=== PATIENT | male | born 1935 | race Caucasian/White ===

== ENCOUNTER 2017-06-15 01:58 | Inpatient (IN) | payer MEDICARE, OTHER ==
--- OUTSIDE RECORDS SUMMARY | 2017-06-15 02:00 | XMS | Clinical Summary ---
:1935 Author Organization [facility] Address [address] [place] [address] Phone Care Team Providers Name Role Phone , Primary Care Provider Unavailable Allergies Not on File Current Medications Not on file Active Problems Not on file Social History Tobacco Use Types Packs/Day Years Used Date Never Assessed Sex Assigned at Date Recorded Not on file Last Filed Vital Signs Not on file Plan of Treatment Not on file Results Not on filefrom Last 3 Months
[2017-06-15 03:06] LABS: Hematocrit 39.7 % (42.0-52.0); Red Blood Cell (RBC) Count 3.79 mill/uL (4.70-6.10); White Blood Cell (WBC) Count 10.3 thou/uL (4.8-10.8)
[2017-06-15 03:19] LABS: Lactic Acid - Sepsis 1.5 mmol/L (0.5-2.2)
[2017-06-15 03:25] LABS: ALT (SGPT) 14 U/L (8-55); AST (SGOT) 22 U/L (5-34); Alkaline Phosphatase 113 U/L (40-150); Anion Gap 14 mmol/L (10-20); BUN (Urea Nitrogen) 41 mg/dL (8.4-25.7); Bilirubin, Total 3.3 mg/dL (0.2-1.2); Calc. Creatinine Clearance 0 mL/min (70-130); Calcium 8.7 mg/dL (7.8-10.44); Carbon Dioxide 24 mmol/L (23-31); Chloride 103 mmol/L (98-107); Estimated GFR-MDRD 38; Globulin 3.3 g/dL (2.4-3.5); Mean Platelet Volume 8.5 fL (7.4-10.4); Protein, Total 6.4 g/dL (5.8-8.1)
[2017-06-15 03:26] LABS: #Lymphocytes 0.6 thou/uL (1.20-3.40); #Monocytes 0.6 thou/uL (0.11-0.59); %Basophils 0.1 % (0.0-1.0); %Eosinophils 0.2 % (0.0-10.0); %Monocytes 6.2 % (0.0-10.0); Anisocytosis SLIGHT = 6-15 cells (100X) (0-5/hpf); Macrocytosis SLIGHT = 6-15 cells (100X) (0-5/hpf); Ovalocytes SLIGHT = 2-5 cells (100X) (0-1/hpf)
[2017-06-15] MEDS ORDERED: Vancomycin HCl 1.5 GM in Sodium Chloride 0.9% 250 ML 300 ML IVPB SCH (04:15)
[2017-06-15 04:32] LABS: Bilirubin Negative (Negative); Blood, Urine Negative (Negative); Glucose, Urine (Dipstick) Negative (Negative); Ketone, Urine Negative (Negative); Nitrite Negative (Negative); Protein, Urine (Dipstick) Negative (Neg-Trace)
[2017-06-15 04:34] LABS: Bacteria/HPF None Seen HPF (None Seen); Hyaline Casts/LPF 7-10 HYALINE CAST LPF (0-3 Hyaline); Squamous Epithelial 0-3 HPF (0-3); WBC/HPF 21-50 HPF (0-3)
[2017-06-15] MEDS ORDERED: Ondansetron HCl/PF 4 MG/2 ML Vial IVP PRN ×2 (05:59→06:58)
[2017-06-15] MEDS ORDERED: Ondansetron ODT 4 MG TAB SL PRN (05:59)
[2017-06-15] MEDS ORDERED: Acetaminophen 325 MG TAB PO PRN ×2 (05:59→06:58)
[2017-06-15 06:16] VITALS: BMI 33.4
[2017-06-15] MEDS ORDERED: HYDROcodone/Acetaminophen 5/325 mg Tablet PO PRN (06:58)
[2017-06-15] MEDS ORDERED: Loperamide HCl 2 MG CAP PO PRN (06:58)
[2017-06-15] MEDS ORDERED: Diabetic Tussin 200 MG/10 ML UDCUP PO PRN (06:58)
[2017-06-15] MEDS ORDERED: Zolpidem Tartrate 5 MG TAB PO PRN (06:58)
[2017-06-15] MEDS ORDERED: Artificial Tears 18 DROP/0.9 ML EA EYE PRN (06:58)
[2017-06-15] MEDS ORDERED: Mag-Al 1200 mg/1200 mg/30 ML UDCUP PO PRN (06:58)
[2017-06-15] MEDS ORDERED: Loratadine 10 MG TAB PO PRN (06:58)
[2017-06-15] MEDS ORDERED: Eucerin (Mineral Oil/Petrolatum,White) 30 gm Jar TOP PRN (06:58)
[2017-06-15] MEDS ORDERED: Nitroglycerin 0.4 MG TAB (25 Tab Bottle) SL PRN (06:58)
[2017-06-15] MEDS ORDERED: Sodium Chloride 0.65% Nasal 44 ML BOT EA NARE PRN (06:58)
[2017-06-15] MEDS ORDERED: Ondansetron ODT 4 MG TAB PO PRN (06:58)
[2017-06-15] MEDS ORDERED: Senokot 8.6 MG TAB PO PRN (06:58)
[2017-06-15] MEDS ORDERED: Milk Of Magnesia 30 ML UDCUP PO PRN (06:58)
[2017-06-15] MEDS: Famotidine 20 MG TAB PO SCH ×2 (08:02→20:03)
[2017-06-15] MEDS: Ezetimibe 10 MG TAB PO SCH (08:02)
[2017-06-15] MEDS: Furosemide 40 MG TAB PO SCH ×2 (08:02→20:03)
[2017-06-15] MEDS: Ascorbic Acid 500 mg Chewable Tablet PO SCH (08:03)
[2017-06-15] MEDS: Dronedarone HCl 400 MG TAB PO SCH ×2 (08:03→20:04)
[2017-06-15] MEDS: Apixaban 5 MG TAB PO SCH ×2 (08:03→20:03)
--- NOTE | 2017-06-15 08:34 | ULT ---
PRELIMINARY REPORT/[facility]/EMERGENCY AFTER HOURS PROCEDURE: EXAM: US Duplex Left Lower Extremity Veins EXAM DATE/TIME: 06/15/2017 2:24 AM CLINICAL HISTORY: 81 years old, male; Pain; Other: Lle pain, redness, swelling TECHNIQUE: Real-time ultrasound scan of the veins of the left lower extremity with color Doppler flow, spectral waveform analysis and compression. COMPARISON: No relevant prior studies available. FINDINGS: Deep veins: Unremarkable. No DVT in the visualized common femoral, femoral, proximal deep femoral or popliteal veins. The veins demonstrate normal color flow, are normally compressible, with normal ph asic flow and/or augmentation response. Superficial veins: Unremarkable. No thrombus in the visualized great saphenous vein. Soft tissues: No acute findings. No popliteal cyst. IMPRESSION: No evidence of deep venous thrombosis in the left lower extremity on current study. Thank you for allowing us to participate in the care of your patient. Dictated and Authenticated by: Sara Reddy MD 06/15/2017 3:14 AM Central Time ([place] \T\ Jose David) FINAL REPORT EMERGENCY AFTER HOURS STUDY ULTRASOUND WITH DOPPLER DUPLEX VENOUS LOWER EXTREMITY LEFT: HISTORY: 81-year-old male with pain, erythema, and swelling of the left lower extremity. TECHNIQUE: Color flow Doppler, spectral waveform analysis of pulsed Doppler, and saha-scale imaging with compre ssion and augmentation, were used to evaluate the left common femoral, femoral, popliteal, posterior tibial, and superficial femoral, veins; and the proximal portions of the profunda femoral and great er saphenous, veins. FINDINGS: There is normal compressibility, demonstration of blood flow by color Doppler and pulsed Doppler, an d response to augmentation, in all interrogated veins. There is edema in the soft tissues throughout the left lower extremity. This report agrees with the preliminary report by Kang. IMPRESSION: 1. No deep vein thrombosis in the left lower extremity. 2. Soft tissue edema of the entire left lower extremity. marjan[] POS: NETTIE
--- NOTE | 2017-06-15 08:49 | RAD ---
RADIOGRAPH CHEST 1 VIEW: Date: 06/15/17 Time: 0210 HOURS HISTORY: 81-year-old male with cough. COMPARISON: 10/28/09. FINDINGS: Cardiac size is larger on the current study. New finding of opacification of the left base due to a combination of pleural effusion and left lower lobe air space density. Minimal blunting of the right lateral costophrenic angle. No angela pulmonary edema or pneumothorax. IMPRESSION: 1. Bilateral pleural effusions, left greater than right. 2. Left lower lobe air space density, probably atelectasis, although it would not be possible to ru le out pneumonia. 3. Cardiomegaly. NIDHI [] POS: NETTIE
[2017-06-15] MEDS ORDERED: Non-Formulary Item 1 EACH (Budesonide-Formoterol [Symbicort 160-4.5] 2 PUFF) INH SCH (09:00)
[2017-06-15] MEDS ORDERED: BIMATOPROST R EYE SCH (09:00)
[2017-06-15] MEDS ORDERED: Dronedarone HCl 400 MG TAB PO SCH (09:00)
[2017-06-15] MEDS ORDERED: Non-Formulary Item 1 EACH (Rosuvastatin Calcium [Crestor] 20 MG) PO SCH (09:00)
[2017-06-15] MEDS ORDERED: Non-Formulary Item 1 EACH (Ascorbic Acid [Vitamin C] 1,000 MG) PO SCH (09:00)
[2017-06-15] MEDS: Latanoprost 0.005% Ophth Soln 2.5 ml Bottle R EYE SCH (09:44)
[2017-06-15] MEDS: cefTRIAXone\\ROCEPHIN 2 GM in Sodium Chloride 0.9% 100 ML IVPB SCH (10:28)
--- NOTE | 2017-06-15 11:31 | HP ---
PRIMARY CARE PHYSICIAN: Dr. Riaz Ramsey. REASON FOR ADMISSION: Urinary tract infection, left leg cellulitis. HISTORY OF PRESENT ILLNESS: A 81-year-old male with a history of atrial fibrillation on chronic ant icoagulation therapy as well as history of bilateral lower extremity lymphedema who came to the [facility] room with complaint of increasing left lower extremity swelling and pain. Patient also notice d erythema over left lower extremity. Patient reports that he has bilateral lower extremity lymphed ramon, but left leg is more swollen, more red and more tender than before. He noticed this on Saturday when he had a change in his dressing for lymphedema. Patient did not put any attention to it, but i t was keeping getting worse and his pain was getting more worse. He was having pain with ambulation . He was not sure about fever. He was feeling subjectively warm. Patient decided to come to the e mergency room for evaluation. In the emergency room, patient was clinically appeared to be cellulitis with left lower extremity. He had ultrasound done which was negative for deep vein thrombosis. Routine blood test was showing neutrophilic leukocytosis. The patient's urinalysis was also consistent with urinary tract infectio n. Subsequently, this patient was admitted to medical floor. EMERGENCY ROOM COURSE: The patient was given vancomycin in the emergency room. REVIEW OF SYSTEMS: The following complete review of systems was negative, unless otherwise mentione d in the HPI or below: Constitutional: Weight loss or gain, ability to conduct usual activities. Skin: Rash, itching. Eyes: Double vision, pain. ENT/Mouth: Nose bleeding, neck stiffness, pain, tenderness. Cardiovascular: Palpitations, dyspnea on exertion, orthopnea. Respiratory: Shortness of breath, wheezing, cough, hemoptysis, fever or night sweats. Gastrointestinal: Poor appetite, abdominal pain, heartburn, nausea, vomiting, constipation, or diar juana. Genitourinary: Urgency, frequency, dysuria, nocturia. Musculoskeletal: Pain, swelling. Neurologic/Psychiatric: Anxiety, depression. Allergy/Immunologic: Skin rash, bleeding tendency. Please see my HPI for pertinent positives and negatives. All other review of system reviewed and ne gative except as mentioned in the HPI. PAST MEDICAL HISTORY: Atrial fibrillation, chronic anticoagulation with Eliquis, hypertension, dysl ipidemia, coronary artery disease, asthma/COPD, benign enlargement of prostate. PAST SURGICAL HISTORY: Left eye cornea repair, right eye surgery, appendicectomy, left shoulder rep lacement, right shoulder rotator cuff repair, tonsillectomy. PAST PSYCHIATRIC HISTORY: Reviewed and negative. SOCIAL HISTORY: Patient lives at home with his . He drinks wine with meal. 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 He quit smoking in 1999. FAMILY HISTORY: No strong family history of premature coronary artery disease, stroke or cancer. ALLERGIES: No known drug allergies. CURRENT HOME MEDICATIONS: Crestor 20 mg p.o. at bedtime, Toprol-XL 25 mg p.o. daily, Flomax 0.4 mg p.o. daily, Eliquis 5 mg p.o. b.i.d., Lasix 40 mg p.o. b.i.d., Multaq 400 mg twice daily, Zetia 10 m g p.o. daily, Symbicort 1 inhalation daily. PHYSICAL EXAMINATION: VITAL SIGNS: On arrival, blood pressure 97/51, pulse 94, respiratory rate 20, temperature 98.4, sat uration 90% on room air, and weight 107.5 kilograms. GENERAL: Patient is currently alert, awake, no obvious acute distress. HEAD: Normocephalic, atraumatic. EYES: Pupils round, reactive to light. Extraocular muscles intact. ENT: Oropharynx within normal limits. Moist mucous membranes. No oral lesions. No pharyngeal heather thema, no exudates. NECK: Supple. Range of motion is normal. No meningeal signs of irritation. LUNGS: Clear to auscultation without any rhonchi or rales. CARDIAC: S1, S2 irregular. No murmur, no gallop, no rub. ABDOMEN: Soft, obesity present. Bowel sounds present. Nontender, nondistended. No organomegaly, no mass, no suprapubic tenderness. GENITALIA: Within normal limits. BACK: Examination unremarkable. No CVA tenderness. EXTREMITIES: Upper extremity passive movements of all joints are normal. Lower extremity, left low er extremity is erythematous, swollen, tender consistent with cellulitis. Right lower extremity has lymphedema as well. NEUROLOGIC: Nonfocal examination. Patient is moving all four limbs, plantar bilateral flexors. PSYCHIATRIC: Normal affect. HEMATOLOGICAL SYSTEM: Lymphedema in both lower extremities, but no other palpable lymph nodes. IMAGING AND SIGNIFICANT LABORATORY DATA: 1. EKG based on my review, atrial fibrillation with low voltage QRS complex, nonspecific ST-T strong es. Ultrasound negative for deep vein thrombosis. 2. Chest x-ray based on my review, no acute cardiopulmonary process. 3. CBC: WBC 10.3, hemoglobin 12.8, MCV 105, platelets 107 with left shift. D-dimer 2.79. 4. BMP: Sodium 137, potassium 3.7, chloride 103, carbon dioxide 24, BUN 41, creatinine 1.76, gluco se 108, calcium 8.7, lactic acid 1.5. 5. LFT: AST 22, ALT 14, alkaline phosphatase 113, albumin 3.1. BNP 579.1. TSH 3.91. 6. Urinalysis: Leukocyte esterase large. ASSESSMENT AND PLAN/IMPRESSION: 1. Acute left lower extremity cellulitis. Based on clinical appearance, patient does have cellulit is with erythema, increased swelling, tenderness, warmth. He also has neutrophilic leukocytosis. T he patient has underlying risk factors for cellulitis with lymphedema. This patient will be treated with vancomycin and Rocephin and patient's both lower extremities will be kept elevated. We will c onsult Wound Care team for wound care management. We will monitor clinical response. Patient will need prophylactic long-term antibiotic therapy to prevent recurrent cellulitis. 2. Urinary tract infection. We will send urine culture. Patient is already on Rocephin and vancom ycin. We will follow up on culture result. 3. Atrial fibrillation with controlled ventricular response. We will continue Toprol-XL 25 mg p.o. daily along with chronic anticoagulation therapy with Eliquis 5 mg p.o. b.i.d. We will also contin ue Multaq 400 mg twice daily. 4. Dyslipidemia. We will continue Crestor 40 mg p.o. at bedtime along with Zetia 10 mg p.o. daily. 5. Benign enlargement of prostate. We will continue Flomax 0.4 mg p.o. at bedtime. 6. Chronic obstructive pulmonary disease/asthma. We will continue Dulera 2 puffs inhalation daily and DuoNeb therapy q.6 hourly p.r.n. 7. Coronary artery disease. We will continue aspirin 81 mg p.o. daily along with beta-tony and statin therapy. 8. Chronic anticoagulation. We will continue Eliquis 5 mg p.o. b.i.d. 9. Macrocytosis. We will start folic acid and vitamin B12 therapy while in hospital. 10. Chronic diastolic heart failure. Patient has elevated BNP. This patient did not have any echo cardiography in recent past, but we will defer that echocardiography to be done as an outpatient bas is. At this point, does not need any echocardiography. The patient is euvolemic and compensated. 11. Bilateral chronic lymphedema. Wound care team will be consulted for lymphedema treatment. 12. Obesity with body mass index 33. Dietary education given, weight loss education given. Health y lifestyle measures discussed with the patient. 13. Deep venous thrombosis prophylaxis. Patient is already on full dose of oral anticoagulation th yoel with Jasvir, no need of Lovenox. 14. Gastrointestinal prophylaxis, Pepcid 20 mg p.o. b.i.d. 15. CODE STATUS: The patient is FULL CODE. The patient's is surrogate decision maker. Disposition plan based on clinical course. We are expecting patient's stay in hospital more than 2 midnights. Plan of care discussed with the patient after admission.
[2017-06-15] MEDS: Mometasone/Formoterol 120 PUFF INHALER INH SCH (18:28)
[2017-06-15] MEDS: Tamsulosin HCl 0.4 MG CAP PO SCH (20:03)
[2017-06-15] MEDS ORDERED: Tamsulosin HCl 0.4 MG CAP PO SCH (21:00)
[2017-06-16] MEDS: Vancomycin HCl 1 GM in Premix Bag 1 BAG IVPB SCH (04:01)
[2017-06-16 05:26] LABS: #Lymphocytes 0.6 thou/uL (1.20-3.40); #Monocytes 0.7 thou/uL (0.11-0.59); #Neutrophils 8.7 thou/uL (1.40-6.50); %Eosinophils 0.3 % (0.0-10.0); %Lymphocytes 5.5 % (21.0-51.0); %Monocytes 6.7 % (0.0-10.0); Hematocrit 38.7 % (42.0-52.0); Mean Platelet Volume 8.9 fL (7.4-10.4); Red Blood Cell (RBC) Count 3.67 mill/uL (4.70-6.10)
[2017-06-16 05:40] LABS: ALT (SGPT) 12 U/L (8-55); AST (SGOT) 20 U/L (5-34); Alkaline Phosphatase 114 U/L (40-150); Anion Gap 13 mmol/L (10-20); BUN (Urea Nitrogen) 37 mg/dL (8.4-25.7); Bilirubin, Total 2.6 mg/dL (0.2-1.2); Calc. Creatinine Clearance 60 mL/min (70-130); Calcium 8.6 mg/dL (7.8-10.44); Carbon Dioxide 27 mmol/L (23-31); Chloride 103 mmol/L (98-107); Estimated GFR-MDRD 44; Globulin 3.5 g/dL (2.4-3.5); Protein, Total 6.4 g/dL (5.8-8.1)
[2017-06-16] MEDS: Mometasone/Formoterol 120 PUFF INHALER INH SCH ×2 (06:29→18:40)
[2017-06-16] MEDS: Ezetimibe 10 MG TAB PO SCH (07:49)
[2017-06-16] MEDS: Famotidine 20 MG TAB PO SCH ×2 (07:49→20:31)
[2017-06-16] MEDS: Dronedarone HCl 400 MG TAB PO SCH ×2 (07:49→20:31)
[2017-06-16] MEDS: Furosemide 40 MG TAB PO SCH ×2 (07:49→20:31)
[2017-06-16] MEDS: Folic Acid 1 MG TAB PO SCH (07:50)
[2017-06-16] MEDS: Apixaban 5 MG TAB PO SCH ×2 (07:50→20:31)
[2017-06-16] MEDS: Cyanocobalamin (Vitamin B-12) 1,000 MCG TAB PO SCH (07:50)
[2017-06-16] MEDS: Ascorbic Acid 500 mg Chewable Tablet PO SCH (07:50)
[2017-06-16] MEDS: Latanoprost 0.005% Ophth Soln 2.5 ml Bottle R EYE SCH (09:18)
[2017-06-16] MEDS: cefTRIAXone\\ROCEPHIN 2 GM in Sodium Chloride 0.9% 100 ML IVPB SCH (09:21)
--- NOTE | 2017-06-16 10:51 | PDOC.PN ---
- Subjective Encounter Start Date: 06/16/17 Encounter Start Time: 09:00 -: old records requested/rev pt feels better, less pain in left leg, but not normal - Objective Resuscitation Status: Resuscitation Status FULL:Full Resuscitation MAR Reviewed: Yes Vital Signs & Weight: Vital Signs (12 hours) Temp Pulse Resp BP Pulse Ox 06/16/17 08:00 97.7 F 92 20 95 06/16/17 07:49 97.7 F 92 20 109/72 94 L 06/16/17 06:35 94 L 06/16/17 06:29 88 20 94 L 06/16/17 04:00 97.9 F 85 20 103/67 94 L 06/16/17 00:37 94 L 06/16/17 00:00 98.9 F 96 18 113/68 93 L Weight Admit Weight 239 lb 9.6 oz Weight 239 lb 9.6 oz I&O: 06/15/17 06/16/17 06/17/17 06:59 06:59 06:59 Intake Total 920 360 Output Total 890 Balance 30 360 Result Diagrams: 06/16/17 03:59 06/16/17 03:59 Phys Exam - Physical Examination Constitutional: NAD HEENT: PERRLA, moist MMs, sclera anicteric Neck: no JVD, supple Respiratory: no wheezing, no rales, no rhonchi Cardiovascular: RRR, no significant murmur, no rub Gastrointestinal: soft, non-tender, no distention, positive bowel sounds bilateral lymphoedema, left leg cellulitis improving Neurological: non-focal, normal sensation, moves all 4 limbs Psychiatric: normal affect, A&O x 3 Skin: no rash, normal turgor Dx/Plan (1) Cellulitis of left leg Code(s): L03.116 - CELLULITIS OF LEFT LOWER LIMB Status: Acute (2) UTI (urinary tract infection) Status: Acute Qualifiers: Urinary tract infection type: acute cystitis Hematuria presence: without hematuria Qualified Code(s): N30.00 - Acute cystitis without hematuria (3) Sepsis Code(s): A41.9 - SEPSIS, UNSPECIFIED ORGANISM Status: Acute (4) Paroxysmal atrial fibrillation Code(s): I48.0 - PAROXYSMAL ATRIAL FIBRILLATION Status: Chronic (5) CKD (chronic kidney disease) stage 3, GFR 30-59 ml/min Code(s): N18.3 - CHRONIC KIDNEY DISEASE, STAGE 3 (MODERATE) Status: Chronic (6) CAD (coronary artery disease) Code(s): I25.10 - ATHSCL HEART DISEASE OF [place] CORONARY ARTERY W/O ANG PCTRS Status: Chronic (7) BPH (benign prostatic hyperplasia) Code(s): N40.0 - BENIGN PROSTATIC HYPERPLASIA WITHOUT LOWER URINRY TRACT SYMP Status: Chronic (8) Hypertension Code(s): I10 - ESSENTIAL (PRIMARY) HYPERTENSION Status: Chronic (9) Dyslipidemia Code(s): E78.5 - HYPERLIPIDEMIA, UNSPECIFIED Status: Chronic (10) Chronic diastolic heart failure Code(s): I50.32 - CHRONIC DIASTOLIC (CONGESTIVE) HEART FAILURE Status: Chronic (11) Obesity (BMI 30.0-34.9) Code(s): E66.9 - OBESITY, UNSPECIFIED Status: Chronic - Plan cont current plan of care, continue antibiotics * continue vanomycin and rocephin * follow culture result * medication reviewed as below * symptomatic treatment * keep leg elevated * wound care. Review of Systems - Review of Systems Constitutional: negative: Fever, Chills, Sweats, Weakness, Malaise, Other ENT: negative: Ear Pain, Ear Discharge, Nose Pain, Nose Discharge, Nose Congestion, Mouth Pain, Mouth Swelling, Throat Pain, Throat Swelling, Other Respiratory: negative: Cough, Dry, Shortness of Breath, Hemoptysis, SOB with Excertion, Pleuritic Pain, Sputum, Wheezing Cardiovascular: negative: Chest Pain, Palpitations, Orthopnea, Paroxysmal Noc. Dyspnea, Edema, Light Headedness, Other Gastrointestinal: negative: Nausea, Vomiting, Abdominal Pain, Diarrhea, Constipation, Melena, Hematochezia, Other Genitourinary: negative: Dysuria, Frequency, Incontinence, Hematuria, Retention , Other Musculoskeletal: Leg Pain. negative: Neck Pain, Shoulder Pain, Arm Pain, Back Pain, Hand Pain, Foot Pain, Other Skin: negative: Rash, Lesions, Dominick, Bruising, Other - Medications/Allergies Allergies/Adverse Reactions: Allergies Allergy/AdvReac Type Severity Reaction Status Date / Time No Known Allergies Allergy Verified 06/15/17 06:23 Medications: Current Medications Acetaminophen (Tylenol) 650 mg PO Q4H PRN PRN Reason: Headache/Fever or Pain Hydrocodone Bitart/Acetaminophen ([place] 5/325) 1 tab PO Q4H PRN PRN Reason: Moderate Pain (4-6) Al Hydroxide/Mg Hydroxide (Maalox) 30 ml PO Q6H PRN PRN Reason: Heartburn or Indigestion Albuterol/Ipratropium (Duoneb) 3 ml NEB F3LL-RS PRN PRN Reason: SOB &/or Wheezing Apixaban (Eliquis) 5 mg PO BID [facility] Last Admin: 06/16/17 07:50 Dose: 5 mg Artificial Tears (Tears Naturale) 0 drop EA EYE PRN PRN PRN Reason: Dry Eyes Ascorbic Acid (Vitamin C) 1,000 mg PO DAILY [facility] Last Admin: 06/16/17 07:50 Dose: 1,000 mg Cyanocobalamin (Vitamin B-12) 1,000 mcg PO DAILY [facility] Last Admin: 06/16/17 07:50 Dose: 1,000 mcg Dronedarone (Multaq) 400 mg PO BID [facility] Last Admin: 06/16/17 07:49 Dose: 400 mg Ezetimibe (Zetia) 10 mg PO DAILY [facility] Last Admin: 06/16/17 07:49 Dose: 10 mg Famotidine (Pepcid) 20 mg PO BID [facility] Last Admin: 06/16/17 07:49 Dose: 20 mg Folic Acid (Folvite) 1 mg PO DAILY [facility] Last Admin: 06/16/17 07:50 Dose: 1 mg Furosemide (Lasix) 40 mg PO BID [facility] Last Admin: 06/16/17 07:49 Dose: 40 mg Guaifenesin (Robitussin Sf) 200 mg PO Q4H PRN PRN Reason: Cough Hydralazine HCl (Apresoline) 10 mg SLOW IVP Q4H PRN PRN Reason: Systolic BP > 180 Ceftriaxone Sodium 2 gm/ (Sodium Chloride) 100 mls @ 200 mls/hr IVPB Q24HR [facility] Last Admin: 06/16/17 09:21 Dose: 100 mls Vancomycin HCl 1 gm/ Device 200 mls @ 200 mls/hr IVPB Q24HR [facility] Last Admin: 06/16/17 04:01 Dose: 200 mls Latanoprost (Xalatan 0.005% Ophth Soln) 1 drop R EYE QAM [facility] Last Admin: 06/16/17 09:18 Dose: Not Given Loperamide HCl (Imodium) 2 mg PO PRN PRN PRN Reason: Diarrhea/Loose Stools Loratadine (Claritin) 10 mg PO DAILYPRN PRN PRN Reason: Sinus Symptoms Magnesium Hydroxide (Milk Of Magnesium) 30 ml PO DAILYPRN PRN PRN Reason: Constipation Metoprolol Succinate (Toprol Xl) 25 mg PO QPM [facility] Last Admin: 06/15/17 20:04 Dose: 25 mg Mineral Oil/White Petrolatum (Eucerin Cream) 0 gm TOP BIDPRN PRN PRN Reason: Dry Skin Miscellaneous Medication (Pharmacy To Dose) 1 each IVPB ASDIR [facility] Mometasone Furoate/Formoterol Fumar (Dulera 200 Mcg/5 Mcg Inhaler) 2 puff INH BID-RT [facility] Last Admin: 06/16/17 06:29 Dose: 2 puff Nitroglycerin (Nitrostat) 0.4 mg SL Q5MIN PRN PRN Reason: Chest Pain Ondansetron HCl (Zofran Odt) 4 mg PO Q6H PRN PRN Reason: Nausea/Vomiting Ondansetron HCl (Zofran) 4 mg IVP Q6H PRN PRN Reason: Nausea/Vomiting Rosuvastatin Calcium (Crestor) 20 mg PO [facility] Last Admin: 06/15/17 20:03 Dose: 20 mg Senna (Senokot) 2 tab PO HSPRN PRN PRN Reason: Constipation Sodium Chloride ([place] Nasal [place] 0.65%) 0 ml EA NARE QIDPRN PRN PRN Reason: Nasal Congestion Sodium Chloride (Flush - Normal Saline) 10 ml IVF Q12HR [facility] Last Admin: 06/16/17 07:50 Dose: 10 ml Sodium Chloride (Flush - Normal Saline) 10 ml IVF PRN PRN PRN Reason: Saline Flush Tamsulosin HCl (Flomax) 0.4 mg PO [facility] Last Admin: 06/15/17 20:03 Dose: 0.4 mg Zolpidem Tartrate (Ambien) 5 mg PO HSPRN PRN PRN Reason: Insomnia
[2017-06-16] MEDS ORDERED: Polyethylene Glycol OPTH DROP 15 ML BOT EA EYE PRN (14:55)
[2017-06-16] MEDS: Tamsulosin HCl 0.4 MG CAP PO SCH (20:31)
[2017-06-16] MEDS ORDERED: FLU VACC TS2017-18 (>65YR) 0.5 ML SYRINGE IM ONE (21:00)
[2017-06-17] MEDS: Vancomycin HCl 1 GM in Premix Bag 1 BAG IVPB SCH (04:53)
[2017-06-17 06:05] LABS: Vancomycin, Trough 8.8 ug/mL
[2017-06-17] MEDS: Mometasone/Formoterol 120 PUFF INHALER INH SCH ×2 (06:56→18:23)
[2017-06-17] MEDS ORDERED: Vancomycin HCl 500 MG in Sodium Chloride 0.9% 100 ML IVPB SCH (07:00)
[2017-06-17] MEDS: Dronedarone HCl 400 MG TAB PO SCH ×2 (08:56→21:00)
[2017-06-17] MEDS: Folic Acid 1 MG TAB PO SCH (08:57)
[2017-06-17] MEDS: Famotidine 20 MG TAB PO SCH ×2 (08:57→21:01)
[2017-06-17] MEDS: Cyanocobalamin (Vitamin B-12) 1,000 MCG TAB PO SCH (08:57)
[2017-06-17] MEDS: Apixaban 5 MG TAB PO SCH ×2 (08:57→21:00)
[2017-06-17] MEDS: Ezetimibe 10 MG TAB PO SCH (08:57)
[2017-06-17] MEDS: Ascorbic Acid 500 mg Chewable Tablet PO SCH (08:57)
[2017-06-17] MEDS: Furosemide 40 MG TAB PO SCH ×2 (08:57→21:00)
[2017-06-17] MEDS: Latanoprost 0.005% Ophth Soln 2.5 ml Bottle R EYE SCH (08:58)
--- NOTE | 2017-06-17 09:32 | PDOC.PN ---
- Subjective Encounter Start Date: 06/17/17 Encounter Start Time: 09:28 Subjective: less leg pain, no fever - Objective Resuscitation Status: Resuscitation Status FULL:Full Resuscitation MAR Reviewed: Yes Vital Signs & Weight: Vital Signs (12 hours) Pulse Resp Pulse Ox 06/17/17 07:01 95 06/17/17 06:56 82 20 95 06/17/17 02:51 93 L Weight Admit Weight 239 lb 9.6 oz Weight 239 lb 9.6 oz I&O: 06/16/17 06/17/17 06/18/17 06:59 06:59 06:59 Intake Total 920 1760 240 Output Total 890 100 Balance 30 1660 240 Result Diagrams: 06/16/17 03:59 06/16/17 03:59 Phys Exam - Physical Examination Constitutional: NAD Neck: no JVD Respiratory: clear to auscultation bilateral Cardiovascular: RRR, no significant murmur Gastrointestinal: soft, positive bowel sounds Musculoskeletal: edema present both lower legs wrapped Dx/Plan (1) Cellulitis of left leg Code(s): L03.116 - CELLULITIS OF LEFT LOWER LIMB Status: Acute (2) UTI (urinary tract infection) Status: Acute Qualifiers: Urinary tract infection type: acute cystitis Hematuria presence: without hematuria Qualified Code(s): N30.00 - Acute cystitis without hematuria (3) BPH (benign prostatic hyperplasia) Code(s): N40.0 - BENIGN PROSTATIC HYPERPLASIA WITHOUT LOWER URINRY TRACT SYMP Status: Chronic (4) CAD (coronary artery disease) Code(s): I25.10 - ATHSCL HEART DISEASE OF [place] CORONARY ARTERY W/O ANG PCTRS Status: Chronic (5) CKD (chronic kidney disease) stage 3, GFR 30-59 ml/min Code(s): N18.3 - CHRONIC KIDNEY DISEASE, STAGE 3 (MODERATE) Status: Chronic (6) Chronic diastolic heart failure Code(s): I50.32 - CHRONIC DIASTOLIC (CONGESTIVE) HEART FAILURE Status: Chronic (7) Dyslipidemia Code(s): E78.5 - HYPERLIPIDEMIA, UNSPECIFIED Status: Chronic (8) Hypertension Code(s): I10 - ESSENTIAL (PRIMARY) HYPERTENSION Status: Chronic (9) Paroxysmal atrial fibrillation Code(s): I48.0 - PAROXYSMAL ATRIAL FIBRILLATION Status: Chronic - Plan cont iv antibx -: wound care -: selected home meds -: PT/OT * .
[2017-06-17] MEDS: cefTRIAXone\\ROCEPHIN 2 GM in Sodium Chloride 0.9% 100 ML IVPB SCH (11:14)
[2017-06-17] MEDS: Tamsulosin HCl 0.4 MG CAP PO SCH (21:00)
[2017-06-18] MEDS ORDERED: Vancomycin HCl 1.5 GM in Sodium Chloride 0.9% 250 ML 300 ML IVPB SCH (05:00)
[2017-06-18] MEDS: Mometasone/Formoterol 120 PUFF INHALER INH SCH ×2 (05:50→18:05)
--- NOTE | 2017-06-18 07:22 | PDOC.PN ---
- Subjective Encounter Start Date: 06/18/17 Encounter Start Time: 07:20 Subjective: alert, still pain L leg - Objective Resuscitation Status: Resuscitation Status FULL:Full Resuscitation MAR Reviewed: Yes Vital Signs & Weight: Vital Signs (12 hours) Temp Pulse Resp BP Pulse Ox 06/18/17 05:50 97 16 94 L 06/18/17 00:26 98.2 F 60 20 114/67 100 06/17/17 20:00 98.2 F 97 22 H 94 L 06/17/17 19:24 98.2 F 97 22 H 128/76 94 L Weight Admit Weight 239 lb 9.6 oz Weight 239 lb 9.6 oz I&O: 06/17/17 06/18/17 06/19/17 06:59 06:59 06:59 Intake Total 1760 1210 Output Total 100 Balance 1660 1210 Result Diagrams: 06/16/17 03:59 06/16/17 03:59 Phys Exam - Physical Examination Constitutional: NAD Neck: no JVD Respiratory: clear to auscultation bilateral Cardiovascular: no significant murmur, irregular Gastrointestinal: soft, positive bowel sounds Musculoskeletal: edema present Deviation from normal: erythema L medial leg Dx/Plan (1) Cellulitis of left leg Code(s): L03.116 - CELLULITIS OF LEFT LOWER LIMB Status: Acute (2) UTI (urinary tract infection) Status: Acute Qualifiers: Urinary tract infection type: acute cystitis Hematuria presence: without hematuria Qualified Code(s): N30.00 - Acute cystitis without hematuria (3) BPH (benign prostatic hyperplasia) Code(s): N40.0 - BENIGN PROSTATIC HYPERPLASIA WITHOUT LOWER URINRY TRACT SYMP Status: Chronic Qualifiers: Lower urinary tract symptom presence: symptoms absent Qualified Code(s): N40.0 - Benign prostatic hyperplasia without lower urinary tract symptoms (4) CAD (coronary artery disease) Code(s): I25.10 - ATHSCL HEART DISEASE OF [place] CORONARY ARTERY W/O ANG PCTRS Status: Chronic Qualifiers: Coronary Disease-Associated Artery/Lesion type: [place] artery [place] vs. transplanted heart: [place] heart Associated angina: without angina Qualified Code(s): I25.10 - Atherosclerotic heart disease of [place] coronary artery without angina pectoris (5) CKD (chronic kidney disease) stage 3, GFR 30-59 ml/min Code(s): N18.3 - CHRONIC KIDNEY DISEASE, STAGE 3 (MODERATE) Status: Chronic (6) Chronic diastolic heart failure Code(s): I50.32 - CHRONIC DIASTOLIC (CONGESTIVE) HEART FAILURE Status: Chronic (7) Dyslipidemia Code(s): E78.5 - HYPERLIPIDEMIA, UNSPECIFIED Status: Chronic (8) Hypertension Code(s): I10 - ESSENTIAL (PRIMARY) HYPERTENSION Status: Chronic (9) Paroxysmal atrial fibrillation Code(s): I48.0 - PAROXYSMAL ATRIAL FIBRILLATION Status: Chronic - Plan cont iv antibx -: PT/OT -: wound care -: cont eliqyus, multaq ,etc * .
[2017-06-18] MEDS: Apixaban 5 MG TAB PO SCH ×2 (08:00→19:44)
[2017-06-18] MEDS: Famotidine 20 MG TAB PO SCH ×2 (08:01→19:44)
[2017-06-18] MEDS: Ezetimibe 10 MG TAB PO SCH (08:01)
[2017-06-18] MEDS: Furosemide 40 MG TAB PO SCH (08:01)
[2017-06-18] MEDS: Cyanocobalamin (Vitamin B-12) 1,000 MCG TAB PO SCH (08:01)
[2017-06-18] MEDS: Dronedarone HCl 400 MG TAB PO SCH ×2 (08:01→19:44)
[2017-06-18] MEDS: Folic Acid 1 MG TAB PO SCH (08:02)
[2017-06-18] MEDS: Latanoprost 0.005% Ophth Soln 2.5 ml Bottle R EYE SCH (08:02)
[2017-06-18] MEDS: Ascorbic Acid 500 mg Chewable Tablet PO SCH (08:02)
[2017-06-18] MEDS: cefTRIAXone\\ROCEPHIN 2 GM in Sodium Chloride 0.9% 100 ML IVPB SCH (09:06)
[2017-06-18] MEDS: Furosemide 40 MG/4 ML VIAL SLOW IVP SCH ×2 (15:37→15:43)
[2017-06-18] MEDS: Tamsulosin HCl 0.4 MG CAP PO SCH (19:44)
[2017-06-19] MEDS: Furosemide 40 MG/4 ML VIAL SLOW IVP SCH ×2 (06:08→13:36)
[2017-06-19] MEDS: Mometasone/Formoterol 120 PUFF INHALER INH SCH ×2 (06:28→19:13)
[2017-06-19] MEDS: Cyanocobalamin (Vitamin B-12) 1,000 MCG TAB PO SCH (08:31)
[2017-06-19] MEDS: Apixaban 5 MG TAB PO SCH ×2 (08:31→19:52)
[2017-06-19] MEDS: Famotidine 20 MG TAB PO SCH ×2 (08:31→19:53)
[2017-06-19] MEDS: Ascorbic Acid 500 mg Chewable Tablet PO SCH (08:31)
[2017-06-19] MEDS: Dronedarone HCl 400 MG TAB PO SCH ×2 (08:31→19:53)
[2017-06-19] MEDS: Folic Acid 1 MG TAB PO SCH (08:31)
[2017-06-19] MEDS: Ezetimibe 10 MG TAB PO SCH (08:31)
[2017-06-19] MEDS: Latanoprost 0.005% Ophth Soln 2.5 ml Bottle R EYE SCH ×2 (08:32→08:38)
[2017-06-19] MEDS: cefTRIAXone\\ROCEPHIN 2 GM in Sodium Chloride 0.9% 100 ML IVPB SCH (09:58)
--- NOTE | 2017-06-19 10:56 | PDOC.PN ---
- Subjective Encounter Start Date: 06/19/17 Encounter Start Time: 10:54 Subjective: felling better, LLE still painfull lat aspect - Objective Resuscitation Status: Resuscitation Status FULL:Full Resuscitation MAR Reviewed: Yes Vital Signs & Weight: Vital Signs (12 hours) Temp Pulse Resp BP Pulse Ox 06/19/17 08:00 97.8 F 90 16 96 06/19/17 07:23 97.8 F 90 16 133/79 96 06/19/17 00:44 92 L 06/18/17 23:41 98.4 F 95 22 H 103/66 92 L Weight Admit Weight 239 lb 9.6 oz Weight 239 lb 9.6 oz I&O: 06/18/17 06/19/17 06/20/17 06:59 06:59 06:59 Intake Total 1210 Output Total 750 Balance 460 Result Diagrams: 06/16/17 03:59 06/16/17 03:59 Phys Exam - Physical Examination Constitutional: NAD Neck: no JVD Respiratory: clear to auscultation bilateral Cardiovascular: RRR, no significant murmur Gastrointestinal: soft, positive bowel sounds Musculoskeletal: edema present 6 cm band of induration, erythema along lateral aspect of LLE Dx/Plan (1) Cellulitis of left leg Code(s): L03.116 - CELLULITIS OF LEFT LOWER LIMB Status: Acute (2) UTI (urinary tract infection) Status: Acute Qualifiers: Urinary tract infection type: acute cystitis Hematuria presence: without hematuria Qualified Code(s): N30.00 - Acute cystitis without hematuria (3) BPH (benign prostatic hyperplasia) Code(s): N40.0 - BENIGN PROSTATIC HYPERPLASIA WITHOUT LOWER URINRY TRACT SYMP Status: Chronic Qualifiers: Lower urinary tract symptom presence: symptoms absent Qualified Code(s): N40.0 - Benign prostatic hyperplasia without lower urinary tract symptoms (4) CAD (coronary artery disease) Code(s): I25.10 - ATHSCL HEART DISEASE OF [place] CORONARY ARTERY W/O ANG PCTRS Status: Chronic Qualifiers: Coronary Disease-Associated Artery/Lesion type: [place] artery [place] vs. transplanted heart: [place] heart Associated angina: without angina Qualified Code(s): I25.10 - Atherosclerotic heart disease of [place] coronary artery without angina pectoris (5) CKD (chronic kidney disease) stage 3, GFR 30-59 ml/min Code(s): N18.3 - CHRONIC KIDNEY DISEASE, STAGE 3 (MODERATE) Status: Chronic (6) Chronic diastolic heart failure Code(s): I50.32 - CHRONIC DIASTOLIC (CONGESTIVE) HEART FAILURE Status: Chronic (7) Dyslipidemia Code(s): E78.5 - HYPERLIPIDEMIA, UNSPECIFIED Status: Chronic (8) Hypertension Code(s): I10 - ESSENTIAL (PRIMARY) HYPERTENSION Status: Chronic (9) Paroxysmal atrial fibrillation Code(s): I48.0 - PAROXYSMAL ATRIAL FIBRILLATION Status: Chronic - Plan cont iv lasix -: cont iv antibx- ID called for consult -: cont routine home meds otherwise * .
--- NOTE | 2017-06-19 14:17 | CON ---
DATE OF CONSULTATION: 06/19/2017 REASON FOR CONSULTATION: Cellulitis. HISTORY OF PRESENT ILLNESS: A 81-year-old patient who has a history of cardiomyopathy with atrial fibrillation, on blood thinners, chronic lymphedema and venous insufficiency and hypertension as well as ischemic cardiomyopathy, who was admitted with worsening left lower extremity swelling and pain associated with erythema. Initial evaluation was consistent with cellulitis and an ultrasound showed no evidence of thrombosis and therefore, the patient was started on broad spectrum coverage. 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 Ramos probably secondary to venous insufficiency. The current regimen includes ceftriaxone and looking at photos taken there has been clear cut clinical improvement. The patient denies headaches. He is blind in the left eye. His oral cavity does not have any symptoms. No neck pain. No back pain. Mild dyspnea. No chest pain or cough. No abdominal pain, no vomiting, hematemesis, or melena. No diarrhea, voiding without difficulty. His limitation with ambulation because of his chronic venous insufficiency, osteoarthrosis. PAST MEDICAL HISTORY: COPD from chronic smoking, ischemic cardiomyopathy with atrial fibrillation, anticoagulation with Eliquis; hypertension, dyslipidemia, BPH, lymphedema of lower extremities, chronic. PAST SURGICAL HISTORY: Left shoulder replacement, cornea repair, left eye, right eye surgery, appendectomy, rotator cuff repair. SOCIAL HISTORY: Drinks wine with meal, quit smoking 20 years before. FAMILY HISTORY: Noncontributory. ALLERGIES: None. MEDICATIONS: Crestor, Toprol-XL, Flomax, Eliquis, Lasix, Multaq, Zetia, Symbicort, and additionally on Rocephin. PHYSICAL EXAMINATION: VITAL SIGNS: Temperature normal. Blood pressure 130/80, pulse 99, respirations 16, and O2 sat 96% on 3 liters nasal cannula. SKIN/HEENT: Shows the findings consistent with stasis dermatitis, lymphedema. He also had the erythema which was circumferential in distribution extending all the way to the lateral thigh. This has improved markedly since admission. Peripheral IV access and a few areas of skin tear in the upper extremities. There is marked amount of bruising in the upper extremity lateral aspect of his skin. No Lai catheter. The sclerae are white. There is lid drop in the left side. Pupils are reactive. NECK: Supple, no jugular venous distention. LUNGS: Lungs with bilateral inspiratory crackles up to a third of right and left hemithorax. HEART: S1, S2 and irregular rate. Soft aortic murmur. No S3. ABDOMEN: Soft and not distended or tender. No ascites. No bladder distention. No organomegaly. Slight edema in the genital area. EXTREMITIES: Pulses are 1+ in popliteal. Cap refill is intact. Limitation in movements due to weakness and the dressing for his venous insufficiency with compressive dressings both sides. NEUROLOGIC: Cognitive function appears to be intact. LABORATORY DATA: Urinalysis with 21-50 WBCs. White cell count 10,000, hemoglobin 12.6, platelets 104,000, 87% neutrophils. INR was not done. Chemistry with creatinine bit up to 1.54, which is above his baseline. Transaminase is normal, bilirubin 2.6 probably from hepatic congestion. CRP 17 , albumin 2.9, TSH 3.9. Vancomycin trough 8.8. Microbiology with leg cultures with Pseudomonas aeruginosa Citrobacter and this probably reflects colonization of the surface of wound. ASSESSMENT: 1. Ischemic cardiomyopathy with afebrile on Eliquis. 2. Chronic lymphedema. 3. Swelling in left upper extremity. 4. Cellulitis, left leg associated with lymphedema. DISCUSSION: Continue Rocephin and eventually transition to oral Keflex 500 three times a day for 10 days after discharge and then transition to oral penicillin-VK to 250 mg twice daily for 1 year to decrease the risk of recrudescence of cellulitis. The patient already using compressive stockings even before the development of this event. Check ultrasound of left upper extremity in view of swelling to rule out occlusion of the vein. MTDD
[2017-06-19] MEDS: Tamsulosin HCl 0.4 MG CAP PO SCH (19:53)
[2017-06-20] MEDS: Mometasone/Formoterol 120 PUFF INHALER INH SCH (06:40)
[2017-06-20] MEDS: Furosemide 40 MG/4 ML VIAL SLOW IVP SCH ×2 (06:41→15:03)
--- NOTE | 2017-06-20 07:53 | ULT ---
VENOUS DOPPLER ULTRASOUND OF THE LEFT UPPER EXTREMITY: HISTORY: Edema in the left upper extremity. TECHNIQUE: Chavez scale ultrasound with color flow and spectral Doppler imaging of the deep venous system of the left upper extremity was performed. FINDINGS: There is good flow and normal waveforms in the left internal jugular, subclavian, axillary, basilic, brachial, radial, ulnar, and cephalic veins. IMPRESSION: No evidence of deep vein thrombosis in the left upper extremity. POS: [facility]
[2017-06-20] MEDS: Ascorbic Acid 500 mg Chewable Tablet PO SCH (08:18)
[2017-06-20] MEDS: Ezetimibe 10 MG TAB PO SCH (08:18)
[2017-06-20] MEDS: Folic Acid 1 MG TAB PO SCH (08:18)
[2017-06-20] MEDS: Famotidine 20 MG TAB PO SCH (08:19)
[2017-06-20] MEDS: Cyanocobalamin (Vitamin B-12) 1,000 MCG TAB PO SCH (08:19)
[2017-06-20] MEDS: Dronedarone HCl 400 MG TAB PO SCH (08:19)
[2017-06-20] MEDS: Latanoprost 0.005% Ophth Soln 2.5 ml Bottle R EYE SCH (08:19)
[2017-06-20] MEDS: Apixaban 5 MG TAB PO SCH (08:19)
[2017-06-20] MEDS: cefTRIAXone\\ROCEPHIN 2 GM in Sodium Chloride 0.9% 100 ML IVPB SCH (10:04)
--- NOTE | 2017-06-20 14:19 | PQF ---
DATE: 06-20-17 ATTN: DR. AMANDA CRANDALL Please exercise your independent, professional judgment in responding to the clarification form. Clinical indicators are provided on the bottom of this form for your review Please check appropriate box(s): HEART FAILURE: ACUITY [ ] Acute[ ] Acute on Chronic [ x ] Chronic WITH (if appropriate) [ ] Hypertensive Heart Disease[ ] Hypertensive Heart and Kidney Disease [ ] Other diagnosis [ ] Unable to determine In addition, please specify: Present on Admission (POA): [ x ] Yes [ ] No [ ] Unable to determine For continuity of documentation, please document condition throughout progress notes and discharge summary. Thank You. CLINICAL INDICATORS - SIGNS / SYMPTOMS / LABS H&P: CHRONIC DIASTOLIC HEART FAILURE PN DR. AMANDA CRANDALL, 06-19-17: CHRONIC DIASTOLIC HEART FAILURE BNP: 579.1 CXR: 06-15-17: * BILATERAL PLEURAL EFFUSIONS, LEFT GREATER THAN RIGHT. * L LOWER LOBE AIR SPACE DENSITY, PROBABLY ATELECTASIS , ALTHOUGH IT WOULD NOT BE POSSIBLE TO RULE OUT PNEUMONIA. RISKS: H&P: CHRONIC DIASTOLIC HEART FAILURE, HX OF CAD, SC, HTN TREATMENTS: (06-18-17) LASIX IVP O2 USE (This form is maintained as a part of the permanent medical record) 2014 [employer]. All Rights Reserved [email or web address] [email or web address] Office: [phone] SEBASTIAN
--- NOTE | 2017-06-20 14:45 | PQF ---
DATE: 06-20-17 ATTN: DR. AMANDA CRANDALL Please exercise your independent, professional judgment in responding to the clarification form. Clinical indicators are provided on the bottom of this form for your review Please check appropriate box(s) to clarify if the following diagnosis has been ruled in our ruled out: SEPSIS (CDI/Coding list diagnosis here) [ x ] Ruled in diagnosis [ x ] Continue to treat [ ] Resolved [ ] Ruled out diagnosis [ ] Cannot rule out diagnosis [ ] Other diagnosis [ ] Unable to determine In addition, please specify: Present on Admission (POA): [ x ] Yes [ ] No [ ] Unable to determine For continuity of documentation, please document condition throughout progress notes and discharge summary. Thank You. CLINICAL INDICATORS - SIGNS / SYMPTOMS / LABS PN DR. SÁNCHEZ 06-16-17: ACUTE SEPSIS RISK FACTORS: PN DR. SÁNCHEZ 06-16-17: ACUTE CELLULITIS OF LEFT LOWER LIMB ACUTE UTI TREATMENTS: (06-15-17) ROCEPHIN (This form is maintained as a part of the permanent medical record) 2014 [employer] All Rights Reserved [email or web address] [email or web address] Office: [phone] SEBASTIAN
[2017-06-20 16:27] VITALS: BP 138/81; TEMP 97.5
--- NOTE | 2017-06-20 16:42 | PRG ---
DATE OF SERVICE: 06/20/2017 Patient has been transferred to rehab. Denies shortness of breath or chest pain. No abdominal pain or diarrhea. Voiding without difficulty. Legs are wrapped with a compressive dressing, little carlos n. PHYSICAL EXAMINATION: VITAL SIGNS: Normal. LUNGS: Clear. HEART: S1, S2, regular rate. ABDOMEN: Soft. Legs with compressive dressing. LABORATORY DATA: White cell count 10.0 and creatinine down to 1.54. Blood cultures negative. ASSESSMENT: Ischemic cardiomyopathy on Levaquin; chronic lymphedema; swelling; left upper extremity cellulitis, left leg with edema. Continue Rocephin and rehabilitation in the next 2-3 days, transi tion to oral Keflex for another 7-10 days and then penicillin V, potassium 250 mg twice daily for 12 months, compression stockings.
--- NOTE | 2017-06-20 18:13 | DIS ---
DATE OF ADMISSION: 06/15/2017 DATE OF DISCHARGE: 06/20/2017 PRIMARY CARE PROVIDER: Riaz Ramsey MD DISCHARGE DISPOSITION: Discharged to rehab. FINAL DIAGNOSES: Recurrent cellulitis of left lower leg, lymphedema, urinary tract infection with P seudomonas, coronary artery disease, atrial fibrillation, chronic oral anticoagulation, chronic kidn ey disease stage 3, hypertension, dyslipidemia. DISCHARGE MEDICATIONS: Crestor 40 mg a day, Prednisone Forte 1% 1 drop right eye b.i.d., dorzolamid e 2% optimal 1 drop right eye b.i.d., brimonidine 1 drop right eye b.i.d., Lotemax 0.5 ophthalmologi c gel 1-2 drops right eye b.i.d., Flomax 0.4 mg p.o. at bedtime, Zetia 5 mg a day, Symbicort 160/4.5 two puffs daily, Eliquis 5 mg twice a day, Rocephin 2 grams IV q.24 hours for 7 more days, then tra nsition to Keflex 500 mg p.o. t.i.d. for 10 days, then transition to Pen VK 250 p.o. b.i.d. for 1 ye ar, Ambien 5 mg at bedtime, Julian 5/325 one every 4 hours p.r.n., Lasix 80 mg in the morning and 40 mg in the evening, Multaq 400 mg p.o. b.i.d. ALLERGIES: No known allergies. PENDING AT THE TIME OF DISCHARGE: Nothing. HOSPITAL COURSE: The patient admitted to the hospital with a urinary tract infection, cellulitis of the left leg. Patient with chronic lower extremity lymphedema, increasing pain and swelling in his leg, had erythema on the lateral left leg. The patient has multiple other medical problems, his ly mphedema was increasing. He was transitioned from p.o. to IV Lasix 40 mg twice a day for several da ys. He is now transitioned to 80 mg in the morning and 40 in the evening. He was continued on Roce phin. His urine culture grew Pseudomonas, sensitive to Rocephin. A consultation was obtained with Dr. Stalin Sullivan. The antibiotic directions given under medications came from him because of his l ymphedema and recurrent infections in his leg. During his hospital stay, he diuresed with decreasin g edema, wound care wrapped his legs twice a day. His pain, swelling, and erythema in his left leg diminished. PERTINENT LABORATORY DATA: White count 10.0 plus or minus, hemoglobin 12.7 plus or minus 0.1, plate let count 105,000 plus or minus. Chemistries: He has chronic kidney disease stage 3 with estimated GFR of 38-44 on two tests, creatinine 1.76, 1.54. TSH was evaluated 3.9. Electrolytes were otherw ise normal. He was initially treated with vancomycin and also, but this was discontinued. Currently, the patien t is doing well. He has had marked difficulty with ambulation due to arthritis and his lymphedema. He was evaluated by PT, OT, referred for inpatient rehabilitation. He will be followed up there by the rehabilitation physician. He will need to be followed up 1 week after discharge by Dr. Ramsey . It would be palm to monitor his creatinine twice a week while there. He is on 2 gram sodium, hea rt healthy diet. No procedures were done. Thirty-five minutes spent preparing this discharge.
[2017-06-21] MEDS ORDERED: Furosemide 80 MG TAB PO SCH (07:30)
[2017-06-21] MEDS ORDERED: Furosemide 40 MG TAB PO SCH (14:00)
--- NOTE | 2017-06-22 11:56 | EKG ---
Test Reason : Blood Pressure : / mmHG Vent. Rate : 099 BPM Atrial Rate : 105 BPM P-R Int : 000 ms QRS Dur : 076 ms QT Int : 356 ms P-R-T Axes : 000 021 047 degrees QTc Int : 456 ms Atrial fibrillation Low voltage QRS Nonspecific T wave abnormality Abnormal ECG Confirmed by FLORI FALCON, PRUDENCIO ([id number]), video editor CHRISTIANO MENA ([id number]) on 06/22/2017 11:55:33 AM Referred By: Confirmed By:PRUDENCIO RUBY MD
== END 2017-06-20 18:27 | DRG 872 ==
LOC: ERS 01:58 → T4-A 04:44
PROVIDERS: ADMIT Internal Medicine; ATTEND Internal Medicine
DX: A41.9 Sepsis, unspecified organism (principal); L03.116 Cellulitis of left lower limb; I50.32 Chronic diastolic (congestive) heart failure; I13.0 Hypertensive heart and chronic kidney disease with heart failure and stage 1 through stage 4 chronic kidney disease, or unspecified chronic kidney disease; N30.00 Acute cystitis without hematuria; I48.0 Paroxysmal atrial fibrillation; Z79.01 Long term (current) use of anticoagulants; E78.5 Hyperlipidemia, unspecified; N40.0 Benign prostatic hyperplasia without lower urinary tract symptoms; I25.10 Atherosclerotic heart disease of native coronary artery without angina pectoris; J44.9 Chronic obstructive pulmonary disease, unspecified; E66.9 Obesity, unspecified; Z68.33 Body mass index [BMI] 33.0-33.9, adult; Z23 Encounter for immunization; Z87.891 Personal history of nicotine dependence; I25.5 Ischemic cardiomyopathy; B96.5 Pseudomonas (aeruginosa) (mallei) (pseudomallei) as the cause of diseases classified elsewhere; N18.3 Chronic kidney disease, stage 3 (moderate)
CPT/HCPCS: 36415; 71010; 80053; 80202; 81003; 81015; 83605; 83880; 84443; 85025; 85379; 86140; 87040; 87070; 87077; 87086; 87186; 87205; 90471; 90682; 93005; 96365; A4216; G0008; G8978-GP-CM; G8979-GP-CK; G8987-GO-CK; G8988-GO-CI; J0696; J1940; J3370; J7050; Q2036

== ENCOUNTER 2017-07-10 03:59 | Emergency (ER) | payer MEDICARE, OTHER ==
[2017-07-10] MEDS ORDERED: Lidocaine Viscous Sol 2% 15 ml UD Cup ONE ×2 (04:14→04:16)
[2017-07-10] MEDS ORDERED: Acetaminophen 500 MG TAB ONE (04:25)
[2017-07-10 04:32] LABS: #Eosinphils 0.1 thou/uL (0.0-0.7); #Lymphocytes 0.8 thou/uL (1.20-3.40); #Monocytes 0.7 thou/uL (0.11-0.59); #Neutrophils 4.4 thou/uL (1.40-6.50); %Basophils 0.1 % (0.0-1.0); %Eosinophils 2.3 % (0.0-10.0); %Lymphocytes 13.1 % (21.0-51.0); %Monocytes 11.8 % (0.0-10.0); Mean Platelet Volume 8.4 fL (7.4-10.4); Red Blood Cell (RBC) Count 4.03 mill/uL (4.70-6.10)
[2017-07-10 04:39] LABS: PTT 36.3 SEC (22.9-36.1); Prothrombin Time 20.7 SEC (12.0-14.7)
[2017-07-10 04:52] LABS: ALT (SGPT) 29 U/L (8-55); AST (SGOT) 29 U/L (5-34); Alkaline Phosphatase 148 U/L (40-150); Anion Gap 11 mmol/L (10-20); BUN (Urea Nitrogen) 40 mg/dL (8.4-25.7); Bilirubin, Total 1.6 mg/dL (0.2-1.2); CK (CPK) 56 U/L (30-200); Calc. Creatinine Clearance 0 mL/min (70-130); Calcium 9.4 mg/dL (7.8-10.44); Carbon Dioxide 32 mmol/L (23-31); Chloride 101 mmol/L (98-107); Estimated GFR-MDRD 37; Globulin 4.1 g/dL (2.4-3.5); Protein, Total 7.7 g/dL (5.8-8.1)
[2017-07-10 05:03] LABS: Troponin I 0.067 ng/mL (< 0.028)
[2017-07-10] MEDS ORDERED: Ondansetron HCl/PF 4 MG/2 ML Vial ONE (05:50)
[2017-07-10] MEDS ORDERED: Morphine 2 MG/ML SYRINGE ONE (05:51)
--- NOTE | 2017-07-10 08:07 | RAD ---
RADIOGRAPH CHEST 1 VIEW: Date: 07/10/2017 Time: 5:08 a.m. HISTORY: A 81-year-old male, status post acute chest trauma from fall. COMPARISON: 07/01/2017 FINDINGS: This is a supine image, which would be in sensitive for pneumothorax detection. There continues to be cardiomegaly and pulmonary vascular engorgement. The interstitial edema has improved, almost res olved. The left pleural effusion appears smaller in volume currently. There appears to be a mildly displaced fracture of the far anterior aspect of the left 8th rib. Left humeral head prosthesis. IMPRESSION: 1. Cardiomegaly. 2. Left pleural effusion. 3. Suspected acute, mildly displaced fracture of the far anterior aspect of the left 8th rib. NIDHI [] POS: [facility]
--- NOTE | 2017-07-10 08:07 | CT ---
PRELIMINARY REPORT/[facility]/EMERGENCY AFTER HOURS PROCEDURE: EXAM: CT Head Without Intravenous Contrast EXAM DATE/TIME: Exam ordered 07/10/2017 5:01 AM CLINICAL HISTORY: 81 years old, male; Injury or trauma; Fall; Initial encounter; Abrasion; Face; Patient HX: Er 2; M81 presented to ed C/O l arm pain, abrasion on r forearm, and l elbow pain S/P falling tonight [facility]. Pt reports he's might have slipped on his tile due to the lymphedema causing his feet to be slick. Pt reports hitting his head, but pt denies loc pt denies neck pain. TECHNIQUE: Axial computed tomography images of the head/brain without intravenous contrast. COMPARISON: No relevant prior studies available. FINDINGS: Brain: There are confluent areas of hypoattenuation within the periventricular and subcortical white matter compatible with moderate chronic microvascular ischemic change. There is insufflations invol ving the LEFT frontal lobe which may represent sequela from prior surgery or infarction. No hemorrha ge. Ventricles: Normal. No ventriculomegaly. Bones/joints: Normal. No acute fracture. Soft tissues: Normal. Sinuses: Unremarkable as visualized. No acute sinusitis. Mastoid air cells: Unremarkable as visualized. No mastoid effusion. Orbits: There is a LEFT eye prosthesis. IMPRESSION: No acute intracranial hemorrhage. Chronic findings as above. Thank you for allowing us to participate in the care of your patient. Dictated and Authenticated by: Bernabe Leiva MD 07/10/2017 5:26 AM Central Time ([place] \T\ Jose David) FINAL REPORT CT BRAIN WITHOUT CONTRAST: I agree with the preliminary report given by Dr. Bernabe Leiva of [facility]. POS: [facility]
--- NOTE | 2017-07-10 08:10 | RAD ---
RADIOGRAPH LEFT FOREARM TWO VIEWS: History: 81-year-old male status post acute forearm traumatic pain from fall. FINDINGS: Diffuse osteopenia. No displaced acute fracture of the radius or ulna identified. Chronic appearing widening of the scapholunate interval. Chronic severe joint space narrowing at the radioscaphoid art iculation, with sclerosis. Ulnar styloid process is absent. IMPRESSION: 1. No acute fracture of radius or ulna identified. 2. Evidence of chronic scapholunate ligament tear. POS: [facility]
--- NOTE | 2017-07-10 08:13 | CT ---
PRELIMINARY REPORT/[facility]/EMERGENCY AFTER HOURS PROCEDURE: EXAM: CT Cervical Spine Without Intravenous Contrast EXAM DATE/TIME: Exam ordered 07/10/2017 4:53 AM CLINICAL HISTORY: 81 years old, male; Injury or trauma; Fall; Initial encounter; Abrasion; Patient HX: Er 2; M81 prese nted to ed C/O l arm pain, abrasion on r forearm, and l elbow pain S/P falling tonight from standing . Pt reports he's might have slipped on his tile due to the lymphedema causing his feet to be slick. Pt reports hitting his head, but pt denies loc pt denies neck pain. TECHNIQUE: Axial computed tomography images of the cervical spine without intravenous contrast. COMPARISON: No relevant prior studies available. FINDINGS: Vertebrae: No acute cervical spine fracture is identified. Discs/spinal canal/neural foramina: The cervical spine demonstrates moderate degenerative changes at multiple levels with spondylosis and facet arthropathy. Typical shoulder artifact is present which limits evaluation of the spinal canal. No spinal canal stenosis. Soft tissues: Normal. Thyroid: The visualized thyroid gland is unremarkable. Lung apices: Unremarkable as visualized. IMPRESSION: No acute cervical spine fracture is identified. Moderate cervical spine degenerative changes as above. Thank you for allowing us to participate in the care of your patient. Dictated and Authenticated by: Bernabe Leiva MD 07/10/2017 5:29 AM Central Time ([place] \T\ Jose David) FINAL REPORT CT CERVICAL SPINE WITH CORONAL AND SAGITTAL REFORMATIONS: I agree with the preliminary report given by Dr. Bernabe Leiva of [facility]. A left-sided pleural effusion is present. POS: [facility]
--- NOTE | 2017-07-10 08:15 | CT ---
PRELIMINARY REPORT/[facility]/EMERGENCY AFTER HOURS PROCEDURE: EXAM: CT Maxillofacial Without Intravenous Contrast EXAM DATE/TIME: Exam ordered 07/10/2017 4:58 AM CLINICAL HISTORY: 81 years old, male; Injury or trauma; Fall; Initial encounter; Abrasion; Cheek bone and eyelid and f orehead; Left; Upper left; Patient HX: Er 2; M81 presented to ed C/O l arm pain, abrasion on r forea rm, and l elbow pain S/P falling tonight from standing. Pt reports he's might have slipped on his tile due to the lymphedema causing his feet to be slick. Pt reports hitting his head, but pt denies loc pt denies neck pain. TECHNIQUE: Axial computed tomography images of the face without intravenous contrast. Coronal and sagittal reformatted images were created and reviewed. COMPARISON: No relevant prior studies available. FINDINGS: Bones/joints: There is acute fracture of the nasal spine anteriorly and LEFT nasal bone with mild ov erlying soft tissue swelling. Soft tissues: See above. Orbits: There is a LEFT eye prosthesis. Sinuses: There is trace fluid in the LEFT maxillary sinus. IMPRESSION: There is acute fracture of the nasal spine anteriorly and LEFT nasal bone with mild overlying soft t issue swelling. Thank you for allowing us to participate in the care of your patient. Dictated and Authenticated by: Bernabe Leiva MD 07/10/2017 5:45 AM Central Time ([place] \T\ Jose David) FINAL REPORT CT FACIAL BONES WITH CORONAL AND SAGITTAL REFORMATIONS: I agree with the preliminary report given by Dr. Bernabe Leiva of [facility]. POS: [facility]
--- NOTE | 2017-07-10 08:53 | RAD ---
AP PELVIS: History: Fall, head pain, back pain. FINDINGS: No definite acute fracture or dislocation is seen. If there is high clinical suspicion for a fracture, further evaluation with CT scan should be perfor med. POS: [facility]
--- NOTE | 2017-07-10 08:57 | RAD ---
RIGHT ELBOW FOUR VIEWS: History: Trauma. Pain. Abrasion. Fall. Comparison: None. FINDINGS: Left elbow four views. No joint effusion. No fracture. No cortical irregularity. Extensive subcutane ous emphysema is noted. Correlate for soft tissue injury. IMPRESSION: Soft tissue injury with subcutaneous emphysema. No fracture. No radiopaque foreign body. POS: [facility]
--- NOTE | 2017-07-10 13:57 | CT ---
ABDOMEN CT WITHOUT CONTRAST: PELVIS CT WITHOUT CONTRAST: LIMITED CT OF THE LUMBAR SPINE: HISTORY: Fall. Abrasion. COMPARISON: None. TECHNIQUE: An abdomen and pelvis CT is performed without contrast. Coronal reformatted images are submitted fo r interpretation. Limited CT of the lumbar spine is performed with reformatted images. FINDINGS: ABDOMEN: Moderate pericardial effusion. The heart is enlarged. Coronary artery calcifications are identified. Moderate bilateral pleural effusions with adjacent consolidation due to atelectasis. The visualized aorta has an overall normal caliber. There is no periaortic fat stranding. There is a focal upper normal caliber of the infrarenal abdominal aorta, measuring [address] evidence of cholelithiasis without CT evidence of cholecystitis. Limited evaluation of the solid organs due to lack of IV contrast. Besides the cyst in the left hep atic lobe, the liver is grossly unremarkable. Calcification along the periphery of the spleen is no sania. The pancreas is atrophic. The adrenal glands are unremarkable. No gastrohepatic, retrocrural, or periportal lymphadenopathy. No mesenteric mass, lymphadenopathy, free air, or free fluid. Limited evaluation of the alimentary canal due to lack of oral contrast. No evidence of bowel obstr uction. The ileocecal junction is normal. An appendix is not appreciated. Scattered fecal materia l in a nondistended, nondilated colon. Occasional diverticulum. No evidence of diverticulitis. Bilaterally, no hydronephrosis, nephrolithiasis, or perinephric fat stranding. Possible parapelvic cyst, lower pole, left kidney. No evidence of obstructive uropathy. Simple cyst in the mid pole le ft kidney, measuring 1.9 x 1.7 cm. Bilaterally, no obstructive uropathy. PELVIS: The urinary bladder is unremarkable. No mass, lymphadenopathy, free air, or free fluid in the pelvis. THORACIC AND LUMBAR SPINE: There is multilevel vacuum disk phenomenon. There is mild loss of verte bral body height due to a remote compression fracture at L2. Acute lumbar spine fracture is not appr eciated. No paraspinal hematoma. IMPRESSION: 1. No evidence of post traumatic sequelae in the abdomen or pelvis. 2. Bilateral pleural effusions. 3. Adjacent atelectasis or pneumonia. 4. Cardiomegaly with pericardial fluid. 5. Vacuum disk phenomenon of the lumbar spine. 6. Remote mild compression fracture at L2. Acute lumbar spine fracture is not appreciated. POS: [facility]
[2017-07-10] MEDS ORDERED: Furosemide 40 MG/4 ML VIAL ONE (14:40)
--- OUTSIDE RECORDS SUMMARY | 2017-07-11 13:22 | XMS | Clinical Summary ---
:1935 Author Organization [facility] Address [address] [place] [address] Phone Care Team Providers Name Role Phone [...]
== END 2017-07-10 16:41 ==
LOC: ERS 03:59
DX: S02.2XXA Fracture of nasal bones, initial encounter for closed fracture (principal); S80.11XA Contusion of right lower leg, initial encounter; S41.112A Laceration without foreign body of left upper arm, initial encounter; S00.212A Abrasion of left eyelid and periocular area, initial encounter; I10 Essential (primary) hypertension; I25.10 Atherosclerotic heart disease of native coronary artery without angina pectoris; I48.91 Unspecified atrial fibrillation; I25.2 Old myocardial infarction; N40.0 Benign prostatic hyperplasia without lower urinary tract symptoms; E78.5 Hyperlipidemia, unspecified; Z87.891 Personal history of nicotine dependence; Z79.01 Long term (current) use of anticoagulants; Z79.899 Other long term (current) drug therapy; W18.30XA Fall on same level, unspecified, initial encounter
CPT/HCPCS: 70450; 70486; 71010; 72125; 72170; 74176; 80053; 82550; 82553; 84484; 85025; 85610; 85730; 93005; 96361; 96374; 96375; J1940; J2270; J2405

== ENCOUNTER 2017-10-09 11:42 | Inpatient (IN) | payer MEDICARE, OTHER ==
[2017-10-09] MEDS ORDERED: Albuterol Sulfate 2.5 mg/3 ml Neb ONE ×2 (12:07)
[2017-10-09 12:34] LABS: #Eosinphils 0.1 thou/uL (0.0-0.7); #Lymphocytes 0.6 thou/uL (1.20-3.40); #Monocytes 0.5 thou/uL (0.11-0.59); #Neutrophils 3.1 thou/uL (1.40-6.50); %Basophils 0.9 % (0.0-1.0); %Eosinophils 1.3 % (0.0-10.0); %Lymphocytes 13.9 % (21.0-51.0); %Monocytes 11.5 % (0.0-10.0); %Neutrophils 72.5 % (42.0-75.0); Hemoglobin 14.3 g/dL (14.0-18.0); Mean Corpuscular HGB CONC 32.2 g/dL (32.0-36.0); Mean Corpuscular Hemoglobin 33.1 pg (27.0-31.0); Mean Platelet Volume 8.6 fL (7.4-10.4); Platelet Count 153 thou/uL (130-400); RBC Distribution Width 15.7 % (11.5-14.5); Red Blood Cell (RBC) Count 4.32 mill/uL (4.70-6.10); White Blood Cell (WBC) Count 4.2 thou/uL (4.8-10.8)
[2017-10-09 12:52] LABS: INR-International Normal Ratio 1.6; PTT 40.2 SEC (22.9-36.1); Prothrombin Time 19.6 SEC (12.0-14.7)
[2017-10-09] MEDS ORDERED: Bacitracin Zinc 1 Packet ONE (12:52)
--- NOTE | 2017-10-09 12:56 | RAD ---
CHEST ONE VIEW: History: Dyspnea. Comparison: 07-18-17 FINDINGS: Heart size is markedly enlarged. Large layering pleural effusion. Right basilar airspace opacity. Sma ll right effusion. Mild pulmonary venous congestion. IMPRESSION: Cardiomegaly. Large left and small pleural effusions as well as right basilar opacity may represent i nfection. POS: H
[2017-10-09 12:59] LABS: ALT (SGPT) 17 U/L (8-55); AST (SGOT) 22 U/L (5-34); Albumin 3.3 g/dL (3.4-4.8); Alkaline Phosphatase 149 U/L (40-150); Anion Gap 16 mmol/L (10-20); BUN (Urea Nitrogen) 25 mg/dL (8.4-25.7); Bilirubin, Total 1.9 mg/dL (0.2-1.2); Calc. Creatinine Clearance 0 mL/min (70-130); Calcium 9.3 mg/dL (7.8-10.44); Carbon Dioxide 23 mmol/L (23-31); Chloride 99 mmol/L (98-107); Estimated GFR-MDRD 64; Globulin 3.8 g/dL (2.4-3.5); Glucose 96 mg/dL (83-110); Potassium 3.9 mmol/L (3.5-5.1); Protein, Total 7.1 g/dL (5.8-8.1); Sodium 134 mmol/L (136-145)
[2017-10-09 13:03] LABS: CKMB 2.1 ng/mL (0-6.6)
[2017-10-09] MEDS ORDERED: Furosemide 40 MG/4 ML VIAL ONE (13:18)
[2017-10-09] MEDS ORDERED: Guaifenesin DM 100-10/5 ML UDCUP PO PRN (15:30)
[2017-10-09] MEDS ORDERED: Diltiazem 125 MG in Sodium Chloride 0.9% 100 ML IVPB SCH (16:00)
--- NOTE | 2017-10-09 16:10 | HP ---
REASON FOR ADMISSION: Atrial fibrillation with rapid ventricular response, acute on chronic respirat ory failure, acute chronic obstructive pulmonary disease exacerbation. HISTORY OF PRESENT ILLNESS: The patient started to have shortness of breath at home. Home health nu maverick from [facility] was there and she checked his saturations to be less than 90%. His heart rate was also more than 120. He was given neb treatment x1, Symbicort inhaler 2 puffs, 2 tablets of diuretic s, and a rescue inhaler as well. None of this seemed to help him. No complaints of chest pain. The patient is normally on 2 liters nasal cannula. The patient's finally called Dr. Guerline Collado, who is a very close friend of theirs and who in fact went home to check on him. He had atrial fibri llation with RVR and advised the to call EMS and patient was brought here. En route, patient wa s given 2 grams of magnesium sulfate IV, Solu-Medrol one dose, and DuoNeb 3 treatments in the EMS gill or to arrival here. On arrival here, he was given a dose of Lasix 40 mg IV push and another nebuliza tion. Currently, he is feeling better. He is on 4 liters nasal cannula at present. PAST MEDICAL AND SURGICAL HISTORY: History of chronic atrial fibrillation and he is on Eliquis and s gil Pham. The patient has been bedridden for the last week to week and a half due to chronic back pain. He has had MRIs done for the spine and is awaiting results from Dr. Gustafson's office. Hypertension, dyslipidemia, coronary artery disease, COPD, benign prostatic hypertrophy, left eye espinal rgery with corneal injury, appendectomy, left shoulder replacement, right shoulder rotator cuff repai r, tonsillectomy. CURRENT MEDICATIONS: The patient is on Multaq 400 mg twice daily, furosemide 40 mg daily, potassium chloride 10 mEq p.o. twice daily, Eliquis 2.5 mg p.o. twice daily, Colace 100 mg p.o. twice daily, Lo pressor 12.5 mg p.o. extended release daily, Zetia 5 mg p.o. daily, Crestor 20 mg daily, Flonase nasa l spray to both nostrils daily. He is on multiple eye drops. ALLERGIES: No known drug allergies. PERSONAL HISTORY: Quit smoking in the year 1999, prior to which he has smoked heavy. Does not abuse alcohol or drugs. FAMILY HISTORY: Mom of emphysema and its complications at the age of 83 years. Father of sudden cardiac at the age of 60. CODE STATUS: FULL. This was discussed with patient and is the power of claims attorney. REVIEW OF SYSTEMS: The following complete review of systems was negative, unless otherwise mentioned in the HPI or below: Constitutional: Weight loss or gain, ability to conduct usual activities. Sk in: Rash, itching. Eyes: Double vision, pain. ENT/Mouth: Nose bleeding, neck stiffness, pain, te nderness. Cardiovascular: Palpitations, dyspnea on exertion, orthopnea. Respiratory: Shortness of breath, wheezing, cough, hemoptysis, fever or night sweats. Gastrointestinal: Poor appetite, abdom inal pain, heartburn, nausea, vomiting, constipation, or diarrhea. Genitourinary: Urgency, frequenc y, dysuria, nocturia. Musculoskeletal: Pain, swelling. Neurologic/Psychiatric: Anxiety, depressio n. Allergy/Immunologic: Skin rash, bleeding tendency. PHYSICAL EXAMINATION: GENERAL: The patient is a 81-year-old male, who is currently not in any acute distress. VITAL SIGNS: Blood pressure 146/98, pulse 110 per minute, respiratory rate 24 per minute, temperatur e 98.3 degrees Fahrenheit, saturating 95% on 3.5 liters nasal cannula. NECK: Supple, no elevated JVD. HEENT: Eyes: Extraocular muscles intact. Pupils reacting to light. Oral cavity, mucous membranes are moist. No exudates or congestion. CARDIOVASCULAR SYSTEM: S1, S2 heard. Irregular rhythm. RESPIRATORY SYSTEM: Air entry 1+ bilateral. Scattered rhonchi plus, bilateral. There are rales in the infrascapular area. ABDOMEN: Soft, bowel sounds heard. There is posterior abdominal wall edema, likely dependent edema. EXTREMITIES: There is 2+ peripheral edema, no calf tenderness. VASCULAR SYSTEM: Peripheral pulses 1+ bilateral. No ischemic ulcerations or gangrene. CENTRAL NERVOUS SYSTEM: No gross focal deficits seen. The patient moves all 4 extremities. PSYCHIATRIC SYSTEM: The patient's mood is euthymic. No hallucinations or delusions. LABORATORY AND X-RAY FINDINGS: Chest x-ray done shows cardiomegaly with pulmonary vascular congestio n. White count of 4, H and H 14 and 44, platelet count 153, MCV is 103 with 72% neutrophils. INR is 1.6, PTT 40. Electrolytes are stable. BUN 25, creatinine 1.1, glucose 96, total bilirubin 1.9, AST and ALT within normal limits. Troponin I 0.05. BNP is 575, albumin is 3.3. Influenza A and B anti gens are negative. EKG done shows atrial fibrillation with RVR at 118 beats per minute. CLINICAL IMPRESSION AND PLAN: The patient will be under observation on telemetry for atrial fibrilla tion with rapid ventricular response, acute respiratory failure with history of chronic respiratory f ailure with patient on home oxygen at 2 liters by nasal cannula. We will continue his aspirin, Eliqu is, Multaq, Zetia, Crestor, Toprol-XL, and Flomax as before. He will be given 5 mg of Cardizem push IV 1 dose now in view of patient being on multiple medications. We will also keep him on DuoNeb q.6 hourly and empiric Augmentin. He will be on Lasix 40 mg IV q.12 hourly for likely congestive heart f ailure with diastolic dysfunction. Also, please note patient is bedridden for quite some time now du e to chronic back pain, which he is getting evaluated by Dr. Gustafson. He has developed dependent e david in the back. The mentions that his lower extremity lymphedema is better than before now. If patient were to get worse or if he still requires more than 2 liters oxygen in the morning, he michelle l be switched over to inpatient status.
[2017-10-09] MEDS: Dronedarone HCl 400 MG TAB PO SCH (18:18)
[2017-10-09] MEDS: Apixaban 5 MG TAB PO SCH (21:49)
[2017-10-09] MEDS: Amoxicillin/Potassium Clav 875 MG TAB PO SCH (21:49)
[2017-10-09] MEDS: Tamsulosin HCl 0.4 MG CAP PO SCH (21:50)
[2017-10-09] MEDS: Dorzolamide HCl 2% Ophth Soln 10 ml Bottle R EYE SCH (22:09)
[2017-10-09] MEDS: Brimonidine Tartrate 0.2% Ophth Soln 5 ml Bottle R EYE SCH (22:09)
[2017-10-09] MEDS: HYDROcodone/Acetaminophen 5/325 mg Tablet PO PRN (23:23)
[2017-10-09] MEDS: Acetaminophen 325 MG TAB PO PRN (23:23)
[2017-10-10] MEDS: Furosemide 40 MG/4 ML VIAL SLOW IVP SCH ×2 (06:09→13:15)
[2017-10-10] MEDS: Mometasone/Formoterol 120 PUFF INHALER INH SCH (07:36)
[2017-10-10 07:46] LABS: #Lymphocytes 0.3 thou/uL (1.20-3.40); #Monocytes 0.3 thou/uL (0.11-0.59); #Neutrophils 3.4 thou/uL (1.40-6.50); %Basophils 0.2 % (0.0-1.0); %Eosinophils 0.3 % (0.0-10.0); %Lymphocytes 7.4 % (21.0-51.0); %Monocytes 8.2 % (0.0-10.0); %Neutrophils 83.9 % (42.0-75.0); Hemoglobin 13.6 g/dL (14.0-18.0); Mean Corpuscular HGB CONC 32.6 g/dL (32.0-36.0); Mean Corpuscular Hemoglobin 33.2 pg (27.0-31.0); Mean Platelet Volume 8.7 fL (7.4-10.4); Platelet Count 161 thou/uL (130-400); RBC Distribution Width 15.6 % (11.5-14.5); White Blood Cell (WBC) Count 4.1 thou/uL (4.8-10.8)
[2017-10-10 07:59] LABS: Anion Gap 16 mmol/L (10-20); BUN (Urea Nitrogen) 30 mg/dL (8.4-25.7); Calc. Creatinine Clearance 69 mL/min (70-130); Calcium 9.1 mg/dL (7.8-10.44); Carbon Dioxide 26 mmol/L (23-31); Chloride 98 mmol/L (98-107); Estimated GFR-MDRD 57; Glucose 126 mg/dL (83-110); Potassium 4.3 mmol/L (3.5-5.1); Sodium 136 mmol/L (136-145)
[2017-10-10] MEDS: Amoxicillin/Potassium Clav 875 MG TAB PO SCH ×2 (08:09→21:59)
[2017-10-10] MEDS: Dronedarone HCl 400 MG TAB PO SCH ×2 (08:09→17:16)
[2017-10-10] MEDS: Rosuvastatin 20 MG TAB PO SCH (08:09)
[2017-10-10] MEDS: Cyanocobalamin (Vitamin B-12) 1,000 MCG TAB PO SCH (08:10)
[2017-10-10] MEDS: Ezetimibe 10 MG TAB PO SCH (08:10)
[2017-10-10] MEDS: Apixaban 5 MG TAB PO SCH ×2 (08:10→21:57)
[2017-10-10] MEDS: Latanoprost 0.005% Ophth Soln 2.5 ml Bottle R EYE SCH (08:11)
[2017-10-10] MEDS: Dorzolamide HCl 2% Ophth Soln 10 ml Bottle R EYE SCH ×2 (08:11→22:03)
[2017-10-10] MEDS: Brimonidine Tartrate 0.2% Ophth Soln 5 ml Bottle R EYE SCH ×2 (08:11→22:02)
--- NOTE | 2017-10-10 11:33 | PDOC.PN ---
- Subjective Encounter Start Date: 10/10/17 Encounter Start Time: 09:00 Subjective: no c/o palp or chest pain -: still has sob -: currently wheezing a bit, couldn't sleep well last night - Objective Resuscitation Status: Resuscitation Status FULL:Full Resuscitation MAR Reviewed: Yes Vital Signs & Weight: Vital Signs (12 hours) Temp Pulse Resp BP Pulse Ox 10/10/17 08:00 97.8 F 91 18 10/10/17 07:38 97.8 F 91 18 119/69 98 10/10/17 07:36 97 16 10/10/17 07:24 91 16 10/10/17 00:50 98 28 H 96 Weight Weight 220 lb 14.4 oz I&O: 10/09/17 10/10/17 10/11/17 06:59 06:59 06:59 Intake Total 120 962 Output Total 625 1200 Balance -505 -238 Result Diagrams: 10/10/17 06:51 10/10/17 06:51 Phys Exam - Physical Examination HEENT: PERRLA, sclera anicteric Neck: no JVD, supple Respiratory: no rales, wheezing present Cardiovascular: no significant murmur, irregular Gastrointestinal: soft, non-tender, positive bowel sounds Musculoskeletal: pulses present, edema present Neurological: non-focal, moves all 4 limbs Psychiatric: A&O x 3 Dx/Plan (1) Atrial fibrillation with RVR Code(s): I48.91 - UNSPECIFIED ATRIAL FIBRILLATION Status: Acute (2) COPD exacerbation Code(s): J44.1 - CHRONIC OBSTRUCTIVE PULMONARY DISEASE W (ACUTE) EXACERBATION Status: Acute (3) BPH (benign prostatic hyperplasia) Code(s): N40.0 - BENIGN PROSTATIC HYPERPLASIA WITHOUT LOWER URINRY TRACT SYMP Status: Chronic Qualifiers: Lower urinary tract symptom presence: unspecified whether lower urinary tract symptoms present Qualified Code(s): N40.0 - Benign prostatic hyperplasia without lower urinary tract symptoms (4) CAD (coronary artery disease) Code(s): I25.10 - ATHSCL HEART DISEASE OF [place] CORONARY ARTERY W/O ANG PCTRS Status: Chronic Qualifiers: Coronary Disease-Associated Artery/Lesion type: [place] artery [place] vs. transplanted heart: [place] heart Associated angina: without angina Qualified Code(s): I25.10 - Atherosclerotic heart disease of [place] coronary artery without angina pectoris (5) CKD (chronic kidney disease) stage 3, GFR 30-59 ml/min Code(s): N18.3 - CHRONIC KIDNEY DISEASE, STAGE 3 (MODERATE) Status: Chronic (6) Chronic diastolic heart failure Code(s): I50.32 - CHRONIC DIASTOLIC (CONGESTIVE) HEART FAILURE Status: Chronic Comment: with mild exacerbation due to afib (7) Dyslipidemia Code(s): E78.5 - HYPERLIPIDEMIA, UNSPECIFIED Status: Chronic (8) Hypertension Code(s): I10 - ESSENTIAL (PRIMARY) HYPERTENSION Status: Chronic Qualifiers: Hypertension type: essential hypertension Qualified Code(s): I10 - Essential (primary) hypertension - Plan is on cardizem drip 5mg/hr, multaq, eliquis and low dose lopressor -: nebs, augmentin, oral steroids for copd flare up -: lasix iv bid, will change to po in am -: cardio consult -: will f/u * . Review of Systems - Medications/Allergies Allergies/Adverse Reactions: Allergies Allergy/AdvReac Type Severity Reaction Status Date / Time No Known Allergies Allergy Verified 06/15/17 06:23 Medications: Current Medications Acetaminophen (Tylenol) 650 mg PO Q4H PRN PRN Reason: Headache/Fever or Pain Last Admin: 10/09/17 23:23 Dose: 650 mg Hydrocodone Bitart/Acetaminophen ([place] 5/325) 1 tab PO Q4H PRN PRN Reason: Moderate Pain (4-6) Last Admin: 10/09/17 23:23 Dose: 1 tab Albuterol/Ipratropium (Duoneb) 3 ml NEB [id number] [facility] Last Admin: 10/10/17 07:24 Dose: 3 ml Amoxicillin/Clavulanate Potassium (Augmentin) 875 mg PO BID [facility] Last Admin: 10/10/17 08:09 Dose: 875 mg Apixaban (Eliquis) 2.5 mg PO BID [facility] Last Admin: 10/10/17 08:10 Dose: 2.5 mg Aspirin (Aspirin Chewable) 81 mg PO DAILY [facility] Last Admin: 10/10/17 08:08 Dose: Not Given Brimonidine Tartrate (Alphagan 0.2% Ophth Soln) 1 drop R EYE BID [facility] Last Admin: 10/10/17 08:11 Dose: 1 drop Cyanocobalamin (Vitamin B-12) 1,000 mcg PO DAILY [facility] Last Admin: 10/10/17 08:10 Dose: 1,000 mcg Dorzolamide HCl (Trusopt 2% Ophth Soln) 1 drop R EYE BID [facility] Last Admin: 10/10/17 08:11 Dose: 1 drop Dronedarone (Multaq) 400 mg PO BID-[facility] Last Admin: 10/10/17 08:09 Dose: 400 mg Ezetimibe (Zetia) 10 mg PO DAILY [facility] Last Admin: 10/10/17 08:10 Dose: 10 mg Furosemide (Lasix) 40 mg SLOW IVP 0600,1400 [facility] Last Admin: 10/10/17 06:09 Dose: 40 mg Guaifenesin/Dextromethorphan (Robitussin Dm) 15 ml PO Q4H PRN PRN Reason: Cough Diltiazem HCl 125 mg/ Sodium (Chloride) 125 mls @ 5 mls/hr IVPB INF PAULIE; 5 MG/ HR PRN Reason: Protocol Last Admin: 10/09/17 18:18 Dose: 125 mls Latanoprost (Xalatan 0.005% Ophth Soln) 1 drop R EYE QAM [facility] Last Admin: 10/10/17 08:11 Dose: 1 drop Metoprolol Succinate (Toprol Xl) 12.5 mg PO DAILY [facility] Last Admin: 10/10/17 08:10 Dose: 12.5 mg Mometasone Furoate/Formoterol Fumar (Dulera 200 Mcg/5 Mcg Inhaler) 2 puff INH DAILY-RT [facility] Last Admin: 10/10/17 07:36 Dose: 2 puff Prednisone (Prednisone) 20 mg PO ONE [facility] Prednisone (Prednisone) 20 mg PO QAM-[facility] Rosuvastatin Calcium (Crestor) 40 mg PO DAILY [facility] Last Admin: 10/10/17 08:09 Dose: 40 mg Senna (Senokot) 2 tab PO HSPRN PRN PRN Reason: Constipation Tamsulosin HCl (Flomax) 0.4 mg PO HS [facility] Last Admin: 10/09/17 21:50 Dose: 0.4 mg
[2017-10-10] MEDS ORDERED: predniSONE 20 MG TAB PO SCH (11:45)
--- NOTE | 2017-10-10 15:31 | CON ---
DATE OF CONSULTATION: 10/10/2017 REASON FOR CONSULTATION: Atrial fibrillation with rapid ventricular response. HISTORY OF PRESENT ILLNESS: Mr. Jones has a previous history of atrial fibrillation and previously treated on anticoagulation therapy. He states on last several days, he has had increased shortness o f breath. The symptoms have wax and waned. He has been on Multaq for paroxysmal atrial fibrillation in the past. He also has a history of COPD. PAST MEDICAL AND SURGICAL HISTORY: Hyperlipidemia, hypertension, previous tobacco abuse, previous my ocardial infarction, status post stent placement, appendectomy, shoulder surgery, stent placements in the mid right coronary artery in 10/2005, sleep apnea, rotator cuff repair, tonsillectomy, previous cardioversion. ALLERGIES: None. HOME MEDICATIONS: Include [place], Symbicort, Lotemax, albuterol, penicillin, Eliquis, Flomax, vitam in C, p.o. nitroglycerin, digoxin, aspirin, Multaq, Crestor, Zetia and metoprolol. REVIEW OF SYSTEMS: A 10-point review of systems is reviewed and is as above negative. PHYSICAL EXAMINAITON: GENERAL: Patient is a pleasant male who is in no acute distress. The patient appears his stated age . VITAL SIGNS: Blood pressure 119/69, pulse 90, temperature 96.6. NEUROLOGIC: The patient is alert and oriented times 3 with no focal neurologic deficits. HEENT: Sclerae without icterus. Mouth has moist mucous membranes with normal pallor. NECK: No JVD. Carotid upstroke brisk. No bruits bilaterally. LUNGS: Clear to auscultation with unlabored respirations. BACK: No scoliosis or kyphosis. CARDIAC: Irregularly irregular. ABDOMEN: Soft, nontender, nondistended. No peritoneal signs present. No hepatosplenomegaly. No ab normal striae. EXTREMITIES: 2+ femoral and 2+ dorsalis pedis pulses. No cyanosis, clubbing, or edema. SKIN: No gross abnormalities. PERTINENT LABORATORY DATA: Hemoglobin 13.6, creatinine 1.23, albumin 3.3, BNP of 575. IMPRESSION: 1. Atrial fibrillation with rapid ventricular response. 2. Coronary artery disease. 3. Status post myocardial infarction. 4. Status post stent placement. RECOMMENDATIONS: Mr. Jones's heart rate appears to be well controlled. He is off IV Cardizem. He is currently on metoprolol at 12.5 mg of p.o. daily. We would likely increase to 25 mg daily. Shaista Crain in addition to Jasvir. Echo and Doppler pending.
[2017-10-10] MEDS: Tamsulosin HCl 0.4 MG CAP PO SCH (21:58)
[2017-10-10] MEDS: HYDROcodone/Acetaminophen 5/325 mg Tablet PO PRN (22:01)
[2017-10-11] MEDS: Furosemide 40 MG/4 ML VIAL SLOW IVP SCH ×2 (06:17→14:40)
[2017-10-11] MEDS: Mometasone/Formoterol 120 PUFF INHALER INH SCH (09:07)
[2017-10-11] MEDS: Dorzolamide HCl 2% Ophth Soln 10 ml Bottle R EYE SCH ×2 (09:18→20:34)
[2017-10-11] MEDS: Brimonidine Tartrate 0.2% Ophth Soln 5 ml Bottle R EYE SCH ×2 (09:19→20:33)
[2017-10-11] MEDS: Latanoprost 0.005% Ophth Soln 2.5 ml Bottle R EYE SCH (09:19)
[2017-10-11] MEDS: Rosuvastatin 20 MG TAB PO SCH (09:19)
[2017-10-11] MEDS: Dronedarone HCl 400 MG TAB PO SCH ×2 (09:19→17:49)
[2017-10-11] MEDS: Ezetimibe 10 MG TAB PO SCH (09:20)
[2017-10-11] MEDS: Apixaban 5 MG TAB PO SCH ×2 (09:20→20:32)
[2017-10-11] MEDS: Cyanocobalamin (Vitamin B-12) 1,000 MCG TAB PO SCH (09:21)
[2017-10-11] MEDS: HYDROcodone/Acetaminophen 5/325 mg Tablet PO PRN (09:46)
[2017-10-11] MEDS: Amoxicillin/Potassium Clav 875 MG TAB PO SCH ×2 (09:48→20:32)
[2017-10-11] MEDS: predniSONE 20 MG TAB PO SCH (09:48)
--- NOTE | 2017-10-11 10:18 | PRG ---
DATE OF SERVICE: 10/11/2017 SUBJECTIVE: Mr. Jones feels like he is breathing better. Unfortunately, his heart rate is increasi ng. It has been in the 100s. He has been on 12.5 mg of metoprolol. His home dose metoprolol has be en 25 mg q.a.m. OBJECTIVE: VITAL SIGNS: Heart rate 119, blood pressure 116/75, pulse 96. LUNGS: Mild rhonchi, rales. HEART: Irregularly irregular. ABDOMEN: Soft, nontender, nondistended. EXTREMITIES: No edema. PERTINENT LABORATORY DATA: Hemoglobin 13.6, creatinine 1.23. IMPRESSION: 1. Chronic atrial fibrillation. 2. Rapid rate. 3. Coronary artery disease, status post myocardial infarction. RECOMMENDATIONS: Increase metoprolol to 12.5 mg p.o. b.i.d. May consider adding digoxin. We will f urther increase metoprolol as heart rate dictates. From a lung standpoint, his COPD appears improved .
--- NOTE | 2017-10-11 14:40 | PDOC.PN ---
- Subjective Encounter Start Date: 10/11/17 Encounter Start Time: 09:00 Subjective: feels better, no palp -: has back pain - Objective MAR Reviewed: Yes Vital Signs & Weight: Vital Signs (12 hours) Temp Pulse Resp BP Pulse Ox 10/11/17 11:31 97.0 F L 91 18 107/62 100 10/11/17 09:07 119 H 16 10/11/17 09:00 96 10/11/17 08:59 119 H 16 10/11/17 07:26 96.1 F L 119 H 16 116/76 100 10/11/17 03:49 97.7 F 74 20 113/75 94 L Weight Weight 224 lb I&O: 10/10/17 10/11/17 10/12/17 06:59 06:59 06:59 Intake Total 1200 Output Total 400 Balance 800 Result Diagrams: 10/10/17 06:51 10/10/17 06:51 Phys Exam - Physical Examination HEENT: PERRLA, moist MMs Neck: no JVD, supple Respiratory: no rales, no rhonchi Cardiovascular: no significant murmur, irregular Gastrointestinal: soft, non-tender, positive bowel sounds Musculoskeletal: pulses present, edema present Neurological: non-focal, moves all 4 limbs Psychiatric: A&O x 3 Dx/Plan (1) Atrial fibrillation with RVR Code(s): I48.91 - UNSPECIFIED ATRIAL FIBRILLATION Status: Acute (2) COPD exacerbation Code(s): J44.1 - CHRONIC OBSTRUCTIVE PULMONARY DISEASE W (ACUTE) EXACERBATION Status: Acute (3) BPH (benign prostatic hyperplasia) Code(s): N40.0 - BENIGN PROSTATIC HYPERPLASIA WITHOUT LOWER URINRY TRACT SYMP Status: Chronic Qualifiers: Lower urinary tract symptom presence: unspecified whether lower urinary tract symptoms present Qualified Code(s): N40.0 - Benign prostatic hyperplasia without lower urinary tract symptoms (4) CAD (coronary artery disease) Code(s): I25.10 - ATHSCL HEART DISEASE OF [place] CORONARY ARTERY W/O ANG PCTRS Status: Chronic Qualifiers: Coronary Disease-Associated Artery/Lesion type: [place] artery [place] vs. transplanted heart: [place] heart Associated angina: without angina Qualified Code(s): I25.10 - Atherosclerotic heart disease of [place] coronary artery without angina pectoris (5) CKD (chronic kidney disease) stage 3, GFR 30-59 ml/min Code(s): N18.3 - CHRONIC KIDNEY DISEASE, STAGE 3 (MODERATE) Status: Chronic (6) Chronic diastolic heart failure Code(s): I50.32 - CHRONIC DIASTOLIC (CONGESTIVE) HEART FAILURE Status: Chronic Comment: with mild exacerbation due to afib (7) Dyslipidemia Code(s): E78.5 - HYPERLIPIDEMIA, UNSPECIFIED Status: Chronic (8) Hypertension Code(s): I10 - ESSENTIAL (PRIMARY) HYPERTENSION Status: Chronic Qualifiers: Hypertension type: essential hypertension Qualified Code(s): I10 - Essential (primary) hypertension - Plan is on toprol bid, eliquis, multaq for afib -: lasix 40mg q12h -: augmentin, nebs, prednisone -: will get nsx to evaluate him (bedridden from 2 weeks), had recent mri and -: has seen in his office once. * . Review of Systems - Medications/Allergies Allergies/Adverse Reactions: Allergies Allergy/AdvReac Type Severity Reaction Status Date / Time No Known Allergies Allergy Verified 06/15/17 06:23 Medications: Current Medications Acetaminophen (Tylenol) 650 mg PO Q4H PRN PRN Reason: Headache/Fever or Pain Last Admin: 10/09/17 23:23 Dose: 650 mg Hydrocodone Bitart/Acetaminophen ([place] 5/325) 1 tab PO Q4H PRN PRN Reason: Moderate Pain (4-6) Last Admin: 10/11/17 09:46 Dose: 1 tab Albuterol/Ipratropium (Duoneb) 3 ml NEB [id number] [facility] Last Admin: 10/11/17 08:59 Dose: 3 ml Amoxicillin/Clavulanate Potassium (Augmentin) 875 mg PO BID [facility] Last Admin: 10/11/17 09:48 Dose: 875 mg Apixaban (Eliquis) 2.5 mg PO BID [facility] Last Admin: 10/11/17 09:20 Dose: 2.5 mg Aspirin (Aspirin Chewable) 81 mg PO DAILY [facility] [place] Last Admin: 10/11/17 09:48 Dose: Not Given Brimonidine Tartrate ([place] 0.2% Ophth Soln) 1 drop R EYE BID [facility] [place] Last Admin: 10/11/17 09:19 Dose: 1 drop Cyanocobalamin (Vitamin B-12) 1,000 mcg PO DAILY [facility] [place] Last Admin: 10/11/17 09:21 Dose: 1,000 mcg Dorzolamide HCl (Trusopt 2% Ophth Soln) 1 drop R EYE BID [facility] [place] Last Admin: 10/11/17 09:18 Dose: 1 drop Dronedarone (Multaq) 400 mg PO BID-[facility] Last Admin: 10/11/17 09:19 Dose: 400 mg Ezetimibe (Zetia) 10 mg PO DAILY [facility] [place] Last Admin: 10/11/17 09:20 Dose: 10 mg Furosemide (Lasix) 40 mg SLOW IVP 0600,1400 [facility] Last Admin: 10/11/17 06:17 Dose: 40 mg Guaifenesin/Dextromethorphan (Robitussin Dm) 15 ml PO Q4H PRN PRN Reason: Cough Latanoprost (Xalatan 0.005% Ophth Soln) 1 drop R EYE QAM [facility] Last Admin: 10/11/17 09:19 Dose: 1 drop Metoprolol Succinate (Toprol Xl) 12.5 mg PO BID [facility] Last Admin: 10/11/17 09:47 Dose: 12.5 mg Mometasone Furoate/Formoterol Fumar (Dulera 200 Mcg/5 Mcg Inhaler) 2 puff INH DAILY-RT [facility] Last Admin: 10/11/17 09:07 Dose: 2 puff Prednisone (Prednisone) 20 mg PO QAM-[facility] Last Admin: 10/11/17 09:48 Dose: 20 mg Rosuvastatin Calcium (Crestor) 40 mg PO DAILY [facility] Last Admin: 10/11/17 09:19 Dose: 40 mg Senna (Senokot) 2 tab PO HSPRN PRN PRN Reason: Constipation Sodium Chloride (Flush - Normal Saline) 10 ml IVF Q12HR [facility] Last Admin: 10/11/17 09:18 Dose: 10 ml Sodium Chloride (Flush - Normal Saline) 10 ml IVF PRN PRN PRN Reason: Saline Flush Tamsulosin HCl (Flomax) 0.4 mg PO HS [facility] Last Admin: 10/10/17 21:58 Dose: 0.4 mg
[2017-10-11] MEDS: Tamsulosin HCl 0.4 MG CAP PO SCH (20:33)
[2017-10-12] MEDS: HYDROcodone/Acetaminophen 5/325 mg Tablet PO PRN ×2 (04:15→08:43)
[2017-10-12] MEDS: Furosemide 40 MG/4 ML VIAL SLOW IVP SCH (06:23)
[2017-10-12] MEDS: Mometasone/Formoterol 120 PUFF INHALER INH SCH (08:02)
[2017-10-12] MEDS: Apixaban 5 MG TAB PO SCH ×2 (08:41→20:56)
[2017-10-12] MEDS: Ezetimibe 10 MG TAB PO SCH (08:41)
[2017-10-12] MEDS: Dronedarone HCl 400 MG TAB PO SCH ×2 (08:42→17:44)
[2017-10-12] MEDS: Rosuvastatin 20 MG TAB PO SCH (08:42)
[2017-10-12] MEDS: Amoxicillin/Potassium Clav 875 MG TAB PO SCH ×2 (08:42→20:57)
[2017-10-12] MEDS: predniSONE 20 MG TAB PO SCH (08:43)
[2017-10-12] MEDS: Cyanocobalamin (Vitamin B-12) 1,000 MCG TAB PO SCH (08:43)
[2017-10-12] MEDS: Brimonidine Tartrate 0.2% Ophth Soln 5 ml Bottle R EYE SCH ×2 (08:44→20:58)
[2017-10-12] MEDS: Latanoprost 0.005% Ophth Soln 2.5 ml Bottle R EYE SCH (08:56)
[2017-10-12] MEDS: Dorzolamide HCl 2% Ophth Soln 10 ml Bottle R EYE SCH ×2 (09:10→20:57)
--- NOTE | 2017-10-12 10:18 | PDOC.PN ---
- Subjective Encounter Start Date: 10/12/17 Encounter Start Time: 07:45 Subjective: no palp or sob -: back pain is better -: has spine braces at bedside now to use when upright - Objective MAR Reviewed: Yes Vital Signs & Weight: Vital Signs (12 hours) Temp Pulse Resp BP Pulse Ox 10/12/17 08:02 84 16 10/12/17 07:50 84 16 10/12/17 07:00 82 22 H 135/77 94 L 10/12/17 04:00 97.6 F 92 18 116/72 99 10/12/17 00:42 98 16 96 Weight Weight 223 lb 4.8 oz I&O: 10/11/17 10/12/17 10/13/17 06:59 06:59 06:59 Intake Total 1200 1278 Output Total 400 1600 Balance 800 -322 Result Diagrams: 10/10/17 06:51 10/10/17 06:51 Phys Exam - Physical Examination HEENT: PERRLA, moist MMs Neck: no JVD, supple Respiratory: no wheezing, no rales Cardiovascular: no significant murmur, irregular Gastrointestinal: soft, non-tender, positive bowel sounds Musculoskeletal: pulses present, edema present Neurological: non-focal, moves all 4 limbs Psychiatric: A&O x 3 Dx/Plan (1) Atrial fibrillation with RVR Code(s): I48.91 - UNSPECIFIED ATRIAL FIBRILLATION Status: Acute Comment: rate controlled (2) COPD exacerbation Code(s): J44.1 - CHRONIC OBSTRUCTIVE PULMONARY DISEASE W (ACUTE) EXACERBATION Status: Acute Comment: resolving (3) BPH (benign prostatic hyperplasia) Code(s): N40.0 - BENIGN PROSTATIC HYPERPLASIA WITHOUT LOWER URINRY TRACT SYMP Status: Chronic Qualifiers: Lower urinary tract symptom presence: unspecified whether lower urinary tract symptoms present Qualified Code(s): N40.0 - Benign prostatic hyperplasia without lower urinary tract symptoms (4) CAD (coronary artery disease) Code(s): I25.10 - ATHSCL HEART DISEASE OF [place] CORONARY ARTERY W/O ANG PCTRS Status: Chronic Qualifiers: Coronary Disease-Associated Artery/Lesion type: [place] artery [place] vs. transplanted heart: [place] heart Associated angina: without angina Qualified Code(s): I25.10 - Atherosclerotic heart disease of [place] coronary artery without angina pectoris (5) CKD (chronic kidney disease) stage 3, GFR 30-59 ml/min Code(s): N18.3 - CHRONIC KIDNEY DISEASE, STAGE 3 (MODERATE) Status: Chronic (6) Chronic diastolic heart failure Code(s): I50.32 - CHRONIC DIASTOLIC (CONGESTIVE) HEART FAILURE Status: Chronic Comment: with mild exacerbation due to afib (7) Dyslipidemia Code(s): E78.5 - HYPERLIPIDEMIA, UNSPECIFIED Status: Chronic (8) Hypertension Code(s): I10 - ESSENTIAL (PRIMARY) HYPERTENSION Status: Chronic Qualifiers: Hypertension type: essential hypertension Qualified Code(s): I10 - Essential (primary) hypertension (9) Back pain Code(s): M54.9 - DORSALGIA, UNSPECIFIED Status: Acute Qualifiers: Back pain location: low back pain Comment: has compression fractures per patient based on recent MRI - Plan add lidocaine tts daily along with norco for pain -: has been consulted by NSX, ?compression fractures with pain -: change lasix to oral, labs for today, will f/u -: is on eliquis, multaq, toprol xl bid -: may have to stop eliquis if he is going for spinal shots * . Review of Systems - Medications/Allergies Allergies/Adverse Reactions: Allergies Allergy/AdvReac Type Severity Reaction Status Date / Time No Known Allergies Allergy Verified 06/15/17 06:23 Medications: Current Medications Acetaminophen (Tylenol) 650 mg PO Q4H PRN PRN Reason: Headache/Fever or Pain Last Admin: 10/09/17 23:23 Dose: 650 mg Hydrocodone Bitart/Acetaminophen ([place] 5/325) 1 tab PO Q4H PRN PRN Reason: Moderate Pain (4-6) Last Admin: 10/12/17 08:43 Dose: 1 tab Albuterol/Ipratropium (Duoneb) 3 ml NEB [id number] [facility] Last Admin: 10/12/17 07:50 Dose: 3 ml Amoxicillin/Clavulanate Potassium (Augmentin) 875 mg PO BID [facility] Last Admin: 10/12/17 08:42 Dose: 875 mg Apixaban (Eliquis) 2.5 mg PO BID [facility] Last Admin: 10/12/17 08:41 Dose: 2.5 mg Aspirin (Aspirin Chewable) 81 mg PO DAILY [facility] Last Admin: 10/12/17 08:43 Dose: 81 mg Brimonidine Tartrate (Alphagan 0.2% Oph Sol) 1 drop R EYE BID [facility] Last Admin: 10/12/17 08:44 Dose: 1 drop Cyanocobalamin (Vitamin B-12) 1,000 mcg PO DAILY [facility] Last Admin: 10/12/17 08:43 Dose: 1,000 mcg Dorzolamide HCl (Trusopt 2% Oph Soln) 1 drop R EYE BID [facility] Last Admin: 10/12/17 09:10 Dose: 1 drop Dronedarone (Multaq) 400 mg PO BID[facility] Last Admin: 10/12/17 08:42 Dose: 400 mg Ezetimibe (Zetia) 10 mg PO DAILY [facility] Last Admin: 10/12/17 08:41 Dose: 10 mg Furosemide (Lasix) 40 mg PO 0900,1400 [facility] Guaifenesin/Dextromethorphan (Robitussin Dm) 15 ml PO Q4H PRN PRN Reason: Cough Latanoprost (Xalatan 0.005% [facility] Sol) 1 drop R EYE QAM [facility] Last Admin: 10/12/17 08:56 Dose: 1 drop Lidocaine (Lidoderm 5% Patch) 1 patch TD DAILY [facility] Metoprolol Succinate (Toprol Xl) 12.5 mg PO BID [facility] Last Admin: 10/12/17 08:42 Dose: 12.5 mg Mometasone Furoate/Formoterol Fumar (Dulera 200 Mcg/5 Mcg Inhaler) 2 puff INH DAILY-RT [facility] Last Admin: 10/12/17 08:02 Dose: 2 puff Prednisone (Prednisone) 20 mg PO QAM-[facility] Last Admin: 10/12/17 08:43 Dose: 20 mg Rosuvastatin Calcium (Crestor) 40 mg PO DAILY [facility] Last Admin: 10/12/17 08:42 Dose: 40 mg Senna (Senokot) 2 tab PO HSPRN PRN PRN Reason: Constipation Sodium Chloride (Flush - Normal Saline) 10 ml IVF Q12HR [facility] Last Admin: 10/12/17 08:41 Dose: 10 ml Sodium Chloride (Flush - Normal Saline) 10 ml IVF PRN PRN PRN Reason: Saline Flush Tamsulosin HCl (Flomax) 0.4 mg PO HS [facility] Last Admin: 10/11/17 20:33 Dose: 0.4 mg
[2017-10-12] MEDS ORDERED: Lidocaine Patch Removal 1 EACH TOP SCH (10:30)
[2017-10-12 10:47] LABS: #Lymphocytes 0.5 thou/uL (1.20-3.40); #Monocytes 0.5 thou/uL (0.11-0.59); #Neutrophils 3.8 thou/uL (1.40-6.50); %Basophils 0.4 % (0.0-1.0); %Eosinophils 0.8 % (0.0-10.0); %Lymphocytes 9.9 % (21.0-51.0); %Monocytes 10.8 % (0.0-10.0); %Neutrophils 78.3 % (42.0-75.0); Mean Corpuscular HGB CONC 32.2 g/dL (32.0-36.0); Mean Corpuscular Hemoglobin 33.4 pg (27.0-31.0); Mean Platelet Volume 7.9 fL (7.4-10.4); Platelet Count 149 thou/uL (130-400); RBC Distribution Width 15.5 % (11.5-14.5); Red Blood Cell (RBC) Count 3.89 mill/uL (4.70-6.10); White Blood Cell (WBC) Count 4.9 thou/uL (4.8-10.8)
[2017-10-12 10:58] LABS: Anion Gap 9 mmol/L (10-20); BUN (Urea Nitrogen) 30 mg/dL (8.4-25.7); Calc. Creatinine Clearance 72 mL/min (70-130); Calcium 8.7 mg/dL (7.8-10.44); Carbon Dioxide 35 mmol/L (23-31); Chloride 99 mmol/L (98-107); Estimated GFR-MDRD 59; Glucose 95 mg/dL (83-110); Potassium 3.9 mmol/L (3.5-5.1); Sodium 139 mmol/L (136-145)
[2017-10-12] MEDS: Furosemide 40 MG TAB PO SCH (13:23)
[2017-10-12] MEDS ORDERED: Furosemide 20 MG TAB PO SCH (14:00)
[2017-10-12] MEDS: Acetaminophen 325 MG TAB PO PRN (15:46)
--- NOTE | 2017-10-12 16:23 | PDOC.CTH ---
<Ines Horn - Last Filed: 10/12/17 16:23> Cardiology Progress Note - Subjective The pt seen and examined. No overnight events. No cardiac complaints. He stated he can breath slightly better today. Complains of chronic back pain. - Objective Vital Signs Temp Pulse Resp BP Pulse Ox 10/12/17 15:20 98.2 F 92 22 H 124/77 93 L 10/12/17 14:20 100 16 10/12/17 11:10 97 10/12/17 11:07 92 24 H 106/61 97 10/12/17 08:42 97.7 F 10/12/17 08:02 84 16 10/12/17 07:50 84 16 10/12/17 07:12 97.7 F 82 22 H 94 L 10/12/17 07:00 82 22 H 135/77 94 L Weight 223 lb 4.8 oz 10/11/17 10/12/17 10/13/17 06:59 06:59 06:59 Intake Total 1200 1278 Output Total 400 1600 Balance 800 -322 - Physical Examination General/Neuro: alert & oriented x3 Neck: no JVD present Lungs: other: (diminished at bases) Heart: other: (irregular) Abdomen: soft Extremities: other: (no edema; TEDs on) - Telemetry Telemetry Rhythm: Afib 80s - Labs Result Diagrams: 10/12/17 10:33 10/12/17 10:33 Troponin/CKMB CK-MB (CK-2) 2.1 ng/mL (0-6.6) 10/09/17 12:26 Troponin I 0.050 ng/mL (< 0.028) H 10/09/17 12:26 - Assessment/Plan 1. Acute on COPD exacerbation with Home O2 2LNC - stable; cont. monitor 2. Chronic Afib with RVR - Rate well controlled with Multaq, Metoprolol 12.5mg BID, Eliquis 2.5mg; cont. monitor on tele 3. HTN - Stable with BBlocker, but no MISSY due to CKD 4. Chronic diastolic HF - stable with Lasix 20mg PO; 4. CKD stage 3 - stable; no MISSY; cont. monitor 5. CAD with hx of stent to RCA in 2005 - stable; cont. monitor on tele 6. Hyperlipidemia - on Statin 7. Lymphedema - stable with TEDs on 8. Chronic Back pain with s/p compression fx on recent MRI - Brace at bedside; Orth consult 9. Ex-smoker MAR reviewed *Echo result on 10/11/17 is pending at this time Review of Systems - Review of Systems Constitutional: reports: no symptoms reported EENTM: reports: no symptoms reported Respiratory: reports: see HPI Cardiac (ROS): reports: no symptoms reported ABD/GI: reports: no symptoms reported : reports: no symptoms reported Musculoskeletal: reports: see HPI Skin: reports: no symptoms reported Neurological: reports: no symptoms reported <Analilia Fuller - Last Filed: 10/13/17 01:25> Cardiology Progress Note - Objective Vital Signs Temp Pulse Resp BP Pulse Ox 10/13/17 01:04 82 16 96 10/12/17 19:30 97.5 F L 89 20 122/73 94 L 10/12/17 19:13 87 18 94 L 10/12/17 15:20 98.2 F 92 22 H 124/77 93 L 10/12/17 14:20 100 16 Weight 223 lb 4.8 oz 10/11/17 10/12/17 10/13/17 06:59 06:59 06:59 Intake Total 1200 1278 758 Output Total 400 1600 700 Balance 800 -322 58 - Labs Result Diagrams: 10/12/17 10:33 10/12/17 10:33 Troponin/CKMB CK-MB (CK-2) 2.1 ng/mL (0-6.6) 10/09/17 12:26 Troponin I 0.050 ng/mL (< 0.028) H 10/09/17 12:26 - Assessment/Plan The pt. was seen and eval. by me. I agree with the A/P by the DIRECTOR OF FOOD AND NUTRITION.
[2017-10-12] MEDS ORDERED: Melatonin 3 MG TAB PO SCH (20:45)
[2017-10-12] MEDS: Tamsulosin HCl 0.4 MG CAP PO SCH (20:58)
[2017-10-13] MEDS ORDERED: Potassium Chloride 20 MEQ TAB PO SCH (03:30)
[2017-10-13 05:19] LABS: #Lymphocytes 0.4 thou/uL (1.20-3.40); #Monocytes 0.5 thou/uL (0.11-0.59); #Neutrophils 3.3 thou/uL (1.40-6.50); %Basophils 0.7 % (0.0-1.0); %Eosinophils 0.2 % (0.0-10.0); %Lymphocytes 9.4 % (21.0-51.0); %Monocytes 11.2 % (0.0-10.0); %Neutrophils 78.4 % (42.0-75.0); Hemoglobin 12.7 g/dL (14.0-18.0); Mean Corpuscular HGB CONC 31.9 g/dL (32.0-36.0); Mean Corpuscular Hemoglobin 32.5 pg (27.0-31.0); Mean Platelet Volume 8.2 fL (7.4-10.4); Platelet Count 144 thou/uL (130-400); RBC Distribution Width 15.2 % (11.5-14.5); White Blood Cell (WBC) Count 4.2 thou/uL (4.8-10.8)
[2017-10-13 05:32] LABS: Anion Gap 11 mmol/L (10-20); BUN (Urea Nitrogen) 30 mg/dL (8.4-25.7); Calc. Creatinine Clearance 79 mL/min (70-130); Calcium 8.6 mg/dL (7.8-10.44); Carbon Dioxide 30 mmol/L (23-31); Chloride 101 mmol/L (98-107); Estimated GFR-MDRD 65; Glucose 127 mg/dL (83-110); Magnesium 2.2 mg/dL (1.6-2.6); Potassium 3.6 mmol/L (3.5-5.1); Sodium 138 mmol/L (136-145)
--- NOTE | 2017-10-13 08:00 | PDOC.PN ---
- Subjective Encounter Start Date: 10/13/17 Encounter Start Time: 07:58 Subjective: episode of sob early am, better now, no chest psin - Objective MAR Reviewed: Yes Vital Signs & Weight: Vital Signs (12 hours) Temp Pulse Resp BP Pulse Ox 10/13/17 04:00 97.8 F 83 17 128/86 10/13/17 01:04 82 16 96 Weight Weight 222 lb 11.2 oz I&O: 10/12/17 10/13/17 10/14/17 06:59 06:59 06:59 Intake Total 1278 1308 Output Total 1600 1500 Balance -322 -192 Result Diagrams: 10/13/17 04:53 10/13/17 04:53 Radiology Reviewed by me: Yes (cxr-cardiomegalt, adverse effusions, wt up since admission) Phys Exam - Physical Examination Constitutional: NAD Neck: no JVD Respiratory: clear to auscultation bilateral anterior mcdaniel Cardiovascular: no significant murmur, irregular Gastrointestinal: soft, positive bowel sounds Musculoskeletal: pulses present, edema present Dx/Plan (1) Atrial fibrillation with RVR Code(s): I48.91 - UNSPECIFIED ATRIAL FIBRILLATION Status: Acute Comment: rate controlled (2) Back pain Code(s): M54.9 - DORSALGIA, UNSPECIFIED Status: Acute Qualifiers: Back pain location: low back pain Chronicity: unspecified Back pain laterality: bilateral Comment: has compression fractures per patient based on recent MRI (3) COPD exacerbation Code(s): J44.1 - CHRONIC OBSTRUCTIVE PULMONARY DISEASE W (ACUTE) EXACERBATION Status: Acute Comment: resolving (4) BPH (benign prostatic hyperplasia) Code(s): N40.0 - BENIGN PROSTATIC HYPERPLASIA WITHOUT LOWER URINRY TRACT SYMP Status: Chronic Qualifiers: Lower urinary tract symptom presence: unspecified whether lower urinary tract symptoms present Qualified Code(s): N40.0 - Benign prostatic hyperplasia without lower urinary tract symptoms (5) CAD (coronary artery disease) Code(s): I25.10 - ATHSCL HEART DISEASE OF [place] CORONARY ARTERY W/O ANG PCTRS Status: Chronic Qualifiers: Coronary Disease-Associated Artery/Lesion type: [place] artery [place] vs. transplanted heart: [place] heart Associated angina: without angina Qualified Code(s): I25.10 - Atherosclerotic heart disease of [place] coronary artery without angina pectoris (6) CKD (chronic kidney disease) stage 3, GFR 30-59 ml/min Code(s): N18.3 - CHRONIC KIDNEY DISEASE, STAGE 3 (MODERATE) Status: Chronic (7) Dyslipidemia Code(s): E78.5 - HYPERLIPIDEMIA, UNSPECIFIED Status: Chronic (8) Hypertension Code(s): I10 - ESSENTIAL (PRIMARY) HYPERTENSION Status: Chronic Qualifiers: Hypertension type: essential hypertension Qualified Code(s): I10 - Essential (primary) hypertension (9) Pleural effusion on left Code(s): J90 - PLEURAL EFFUSION, NOT ELSEWHERE CLASSIFIED Status: Acute - Plan RPT CXR- adverse- change lasix to 80 iv q12h -: cont eliquis, multaq, metoprolol -: cont O2 nebs, etc -: discuss with cardiology, pulmonary consult? * .
--- NOTE | 2017-10-13 08:55 | RAD ---
CHEST 1 VIEW: Date: 10/13/17 HISTORY: Follow-up CHF. COMPARISON: Chest 1 view dated 10/09/17. FINDINGS: Heart size markedly enlarged. There are layering bilateral pleural effusions. No pneumothorax. Moderate degenerative disease right shoulder joint. Left shoulder replacement. IMPRESSION: 1. Cardiomegaly with large bilateral pleural effusions. 2. Moderate bilateral pleural effusions. POS: [facility]
[2017-10-13] MEDS: Mometasone/Formoterol 120 PUFF INHALER INH SCH (09:22)
[2017-10-13 09:57] LABS: Troponin I 0.082 ng/mL (< 0.028)
[2017-10-13] MEDS: Dronedarone HCl 400 MG TAB PO SCH ×2 (10:00→16:19)
[2017-10-13] MEDS: predniSONE 20 MG TAB PO SCH (10:01)
[2017-10-13] MEDS: Amoxicillin/Potassium Clav 875 MG TAB PO SCH ×2 (10:01→21:46)
[2017-10-13] MEDS: Apixaban 5 MG TAB PO SCH ×2 (10:02→21:46)
[2017-10-13] MEDS: Brimonidine Tartrate 0.2% Ophth Soln 5 ml Bottle R EYE SCH ×2 (10:05→21:48)
[2017-10-13] MEDS: Cyanocobalamin (Vitamin B-12) 1,000 MCG TAB PO SCH (10:05)
[2017-10-13] MEDS: Dorzolamide HCl 2% Ophth Soln 10 ml Bottle R EYE SCH ×2 (10:06→21:49)
[2017-10-13] MEDS: Ezetimibe 10 MG TAB PO SCH (10:06)
[2017-10-13] MEDS: Furosemide 40 MG TAB PO SCH ×2 (10:06→13:49)
[2017-10-13] MEDS: Lidocaine 5% Patch TD SCH (10:07)
[2017-10-13] MEDS: Latanoprost 0.005% Ophth Soln 2.5 ml Bottle R EYE SCH (10:07)
[2017-10-13] MEDS: Rosuvastatin 20 MG TAB PO SCH (10:09)
[2017-10-13] MEDS: Acetaminophen 325 MG TAB PO PRN (10:42)
[2017-10-13 12:21] LABS: Troponin I 0.094 ng/mL (< 0.028)
--- NOTE | 2017-10-13 12:29 | PDOC.CTH ---
<Ines Horn - Last Filed: 10/13/17 12:29> Cardiology Progress Note - Subjective The pt seen and examined. No overnight events. No cardiac complaints. He had one episode of SOB around 0400 this AM. Trop has been 0.08 and 0.094. At this time, he denied any CP or discomfort in his chest or other cardiac complaints. His BLE today are swelling than yesterday because he has not been wearing compression stockings since last night. - Objective Vital Signs Temp Pulse Resp BP Pulse Ox 10/13/17 12:26 97.8 F 83 26 H 106/65 95 10/13/17 09:35 97.8 F 70 24 H 10/13/17 09:22 108 H 18 10/13/17 09:14 94 L 10/13/17 09:08 108 H 18 10/13/17 08:00 97.8 F 70 24 H 134/84 10/13/17 04:00 97.8 F 83 17 128/86 10/13/17 01:04 82 16 96 Weight 222 lb 11.2 oz 10/12/17 10/13/17 10/14/17 06:59 06:59 06:59 Intake Total 1278 1308 Output Total 1600 1500 Balance -322 -192 - Physical Examination General/Neuro: alert & oriented x3 Neck: no JVD present Lungs: other: (diminished at bases) Heart: other: (irregular) Abdomen: soft Extremities: other: Other PE findings: 2-3+ pitting edema to BLE - Telemetry Telemetry Rhythm: Afib 80s - Labs Result Diagrams: 10/13/17 04:53 10/13/17 04:53 Troponin/CKMB CK-MB (CK-2) 2.1 ng/mL (0-6.6) 10/09/17 12:26 Troponin I 0.094 ng/mL (< 0.028) H 10/13/17 11:50 - Assessment/Plan 1. Acute on COPD exacerbation with Home O2 2LNC - stable; cont. monitor 2. Chronic Afib with RVR - Rate well controlled with Multaq, Metoprolol 12.5mg BID, Eliquis 2.5mg BID; cont. monitor on tele 3. HTN - Stable with BBlocker, but no MISSY due to CKD 4. Chronic diastolic HF - stable with Lasix 20mg PO; 4. CKD stage 3 - stable; no MISSY; cont. monitor 5. CAD with hx of stent to RCA in 2006 - stable; cont. monitor on tele 6. Hyperlipidemia - on Statin 7. Lymphedema - Instructed to bring his own TEDs for his symptoms 8. Chronic Back pain with s/p compression fx on recent MRI - Brace at bedside; pain is stable with Lidocaine patch; Orth consult 9. Ex-smoker MAR reviewed *Echo result on 10/11/17 is pending at this time Review of Systems - Review of Systems Constitutional: reports: no symptoms reported EENTM: reports: no symptoms reported Respiratory: reports: see HPI Cardiac (ROS): reports: no symptoms reported ABD/GI: reports: no symptoms reported : reports: no symptoms reported Musculoskeletal: reports: no symptoms reported Skin: reports: see HPI <Analilia Fuller - Last Filed: 10/14/17 10:04> Cardiology Progress Note - Objective Vital Signs Temp Pulse Resp BP Pulse Ox 10/14/17 09:01 97.7 F 98 18 120/78 92 L 10/14/17 07:55 82 16 10/14/17 04:30 98 F 110 H 20 105/77 96 10/14/17 00:43 87 16 96 10/13/17 22:40 98 F 88 20 112/58 L 97 Weight 224 lb 10/13/17 10/14/17 10/15/17 06:59 06:59 06:59 Intake Total 1308 1080 Output Total 1500 1650 Balance -192 -570 - Labs Result Diagrams: 10/13/17 04:53 10/13/17 04:53 Troponin/CKMB CK-MB (CK-2) 2.1 ng/mL (0-6.6) 10/09/17 12:26 Troponin I 0.094 ng/mL (< 0.028) H 10/13/17 11:50 - Assessment/Plan Pt. seen and eval. by me. I agree with the A/P by the STRUCTURAL DRAFTSMAN. Sob with minimal activity.Irreg/irreg.
[2017-10-13] MEDS: Tamsulosin HCl 0.4 MG CAP PO SCH (21:46)
[2017-10-13] MEDS ORDERED: Loteprednol Etabonate 0.5% Ophth Suspension 5 ml Bottle L EYE SCH (22:30)
[2017-10-13] MEDS: diphenhydrAMINE 25 MG CAP PO PRN (22:42)
[2017-10-13] MEDS: Acetaminophen 500 MG TAB PO PRN (22:43)
[2017-10-14] MEDS: Furosemide 100 MG/10 ML VIAL SLOW IVP SCH ×2 (06:02→14:17)
[2017-10-14] MEDS: Mometasone/Formoterol 120 PUFF INHALER INH SCH (07:55)
--- NOTE | 2017-10-14 07:55 | PDOC.PN ---
- Subjective Encounter Start Date: 10/14/17 Encounter Start Time: 07:53 Subjective: more comfortable, less sob, increased UO - Objective MAR Reviewed: Yes Vital Signs & Weight: Vital Signs (12 hours) Temp Pulse Resp BP Pulse Ox 10/14/17 04:30 98 F 110 H 20 105/77 96 10/14/17 00:43 87 16 96 10/13/17 22:40 98 F 88 20 112/58 L 97 10/13/17 20:25 98.3 F 98 20 116/65 97 Weight Weight 224 lb I&O: 10/13/17 10/14/17 10/15/17 06:59 06:59 06:59 Intake Total 1308 1080 Output Total 1500 1650 Balance -192 -570 Result Diagrams: 10/13/17 04:53 10/13/17 04:53 Phys Exam - Physical Examination Constitutional: NAD Neck: no JVD post rales Cardiovascular: no significant murmur, irregular Gastrointestinal: soft, positive bowel sounds Musculoskeletal: edema present Dx/Plan (1) Atrial fibrillation with RVR Code(s): I48.91 - UNSPECIFIED ATRIAL FIBRILLATION Status: Acute Comment: rate controlled (2) Back pain Code(s): M54.9 - DORSALGIA, UNSPECIFIED Status: Acute Qualifiers: Back pain location: low back pain Chronicity: unspecified Back pain laterality: bilateral Comment: has compression fractures per patient based on recent MRI (3) COPD exacerbation Code(s): J44.1 - CHRONIC OBSTRUCTIVE PULMONARY DISEASE W (ACUTE) EXACERBATION Status: Acute Comment: resolving (4) BPH (benign prostatic hyperplasia) Code(s): N40.0 - BENIGN PROSTATIC HYPERPLASIA WITHOUT LOWER URINRY TRACT SYMP Status: Chronic Qualifiers: Lower urinary tract symptom presence: unspecified whether lower urinary tract symptoms present Qualified Code(s): N40.0 - Benign prostatic hyperplasia without lower urinary tract symptoms (5) CAD (coronary artery disease) Code(s): I25.10 - ATHSCL HEART DISEASE OF [place] CORONARY ARTERY W/O ANG PCTRS Status: Chronic Qualifiers: Coronary Disease-Associated Artery/Lesion type: [place] artery [place] vs. transplanted heart: [place] heart Associated angina: without angina Qualified Code(s): I25.10 - Atherosclerotic heart disease of [place] coronary artery without angina pectoris (6) CKD (chronic kidney disease) stage 3, GFR 30-59 ml/min Code(s): N18.3 - CHRONIC KIDNEY DISEASE, STAGE 3 (MODERATE) Status: Chronic (7) Dyslipidemia Code(s): E78.5 - HYPERLIPIDEMIA, UNSPECIFIED Status: Chronic (8) Hypertension Code(s): I10 - ESSENTIAL (PRIMARY) HYPERTENSION Status: Chronic Qualifiers: Hypertension type: essential hypertension Qualified Code(s): I10 - Essential (primary) hypertension (9) Pleural effusion on left Code(s): J90 - PLEURAL EFFUSION, NOT ELSEWHERE CLASSIFIED Status: Acute - Plan awaiting ECHO -: cont iv lasix-80 bid -: cont eliquis, metoprolol, flomax -: discuss withDr Pham * .
--- NOTE | 2017-10-14 08:02 | CON ---
DATE OF CONSULTATION: 10/14/2017 HISTORY OF PRESENT ILLNESS: Mr. Placido Jones is a 81-year-old male who I saw in his room this morning . He has a history of atrial fibrillation with rapid ventricular response, acute on chronic respirat ory failure and acute chronic obstructive pulmonary disease exacerbation. He was admitted on 018 for these reasons. He came in was having shortness of breath, his home health nurse from [facility] verified that his sats were less than 90% and he is tachycardic. When he presented to the emergen cy department, he had atrial fibrillation with RVR. He was given magnesium sulfate, IV Solu-Medrol o ne dose and DuoNeb 3 treatments, upon arrival to the emergency department. He was then given Lasix 4 0 mg IV another nebulization. Neurosurgery saw him, he was complaining of back pain and right hip pa in and is tender to palpation in those areas. Neurosurgery saw him last week. The patient is on Leticia scooby and is being anticoagulated for a recent DE. Neurosurgery ordered MRI of the lumbar spine and w as eventually completed [facility]. We were consulted for that reason. PAST MEDICAL AND SURGICAL HISTORY: Chronic atrial fibrillation, he is on Eliquis and seen Dr. Ramon newsome. He is bedridden for the last week due to chronic back pain, MRIs done in the spine at the [facility]. He has a history of hypertension, dyslipidemia, coronary artery disease, COPD, benign prostatic hypertrophy, left eye surgery, corneal injury, appendectomy, left shoulder replacement, rig ht shoulder rotator cuff repair, tonsillectomy. HOME MEDICATIONS: Include, 1. Multaq 400 twice a day. 2. Furosemide 40 mg daily. 3. Potassium chloride 10 mEq p.o. twice a day. 4. Eliquis 2.5 mg p.o. twice a day. 5. Colace 100 mg p.o. twice daily. 6. Lopressor 12.5 mg p.o. extended release. 7. Zetia 5 mg p.o. daily. 8. Crestor 20 mg daily. 9. Flonase spray to both nostrils daily. 10. He is also on eyedrops. ALLERGIES: No known drug allergies. PERSONAL HISTORY: Quit smoking in the year 1999. Prior, he was a heavy smoker. Denies use of alcoh ol or drugs. FAMILY HISTORY: Mother of emphysema and complications at the age of 83. Father of sudden cardiac at the age of 60. The patient is full code. REVIEW OF SYSTEMS: Patient has shortness of breath, palpitations, dyspnea on exertion, orthopnea, po or appetite, low back pain. All other review of systems was negative, unless stated in the above HPI . PHYSICAL EXAMINATION: VITAL SIGNS: Blood pressure 112/58, pulse is 110, respirations 20, O2 sats 96% on 3 liters of oxygen . HEENT: Head is normocephalic, atraumatic. Hearing intact. Moist mucous membranes. Trachea is midl ine. EYES: Pupils are equal and reactive to light. Extraocular muscles are intact. Sclerae is white, no nicteric. CARDIOVASCULAR: S1, S2 heart sounds heard. Irregular rhythm. RESPIRATORY: The patient has +1 bilateral air entry, scattered rhonchi plus. There are rales in the infrascapular area. EXTREMITIES: There is +2 to 3 peripheral edema, no calf tenderness. VASCULAR SYSTEM: There is +1 bilaterally, no ischemic ulcerations or gangrene. CENTRAL NERVOUS SYSTEM: The patient is alert and oriented x4. He answers my questions appropriately . He has GCS of 15. There are no focal sensory or motor deficits in the lower extremities bilateral ly. PSYCHIATRIC: No history of psychiatric history. CLINICAL IMPRESSION AND PLAN: Mr. Jones, since he is not a surgical candidate at this time being on Eliquis, being treating for an DE, we have consulted Dr. Eagle to consider pain management to the right hip. We also ordered a TLSO compression brace for the low back pain, which will minimize t he movement and decrease pain. We would recommend wearing compression stockings for the lower extrem ity swelling and lymphedema that has developed +2-3 pitting. If there are any further questions, please feel free to contact Neurosurgery.
[2017-10-14] MEDS: Dronedarone HCl 400 MG TAB PO SCH ×2 (09:07→17:54)
[2017-10-14] MEDS: predniSONE 20 MG TAB PO SCH (09:07)
[2017-10-14] MEDS: Amoxicillin/Potassium Clav 875 MG TAB PO SCH ×2 (09:07→22:44)
[2017-10-14] MEDS: Apixaban 5 MG TAB PO SCH (09:08)
[2017-10-14] MEDS: Brimonidine Tartrate 0.2% Ophth Soln 5 ml Bottle R EYE SCH ×2 (09:09→22:46)
[2017-10-14] MEDS: Ezetimibe 10 MG TAB PO SCH (09:10)
[2017-10-14] MEDS: Dorzolamide HCl 2% Ophth Soln 10 ml Bottle R EYE SCH ×2 (09:10→22:46)
[2017-10-14] MEDS: Cyanocobalamin (Vitamin B-12) 1,000 MCG TAB PO SCH (09:10)
[2017-10-14] MEDS: Latanoprost 0.005% Ophth Soln 2.5 ml Bottle R EYE SCH (09:11)
[2017-10-14] MEDS: Loteprednol Etabonate 0.5% Ophth Suspension 5 ml Bottle L EYE SCH ×2 (09:12→22:46)
[2017-10-14] MEDS: Lidocaine 5% Patch TD SCH (09:12)
[2017-10-14] MEDS: Rosuvastatin 20 MG TAB PO SCH (09:13)
[2017-10-14] MEDS ORDERED: Digoxin 0.25 MG TAB PO SCH (18:30)
[2017-10-14] MEDS: Tamsulosin HCl 0.4 MG CAP PO SCH (22:44)
[2017-10-14] MEDS: Enoxaparin Sodium 100 MG/ML SYRINGE SC SCH (22:45)
[2017-10-14] MEDS: diphenhydrAMINE 25 MG CAP PO PRN (22:45)
[2017-10-15 05:38] LABS: Anion Gap 11 mmol/L (10-20); BUN (Urea Nitrogen) 27 mg/dL (8.4-25.7); Calc. Creatinine Clearance 82 mL/min (70-130); Calcium 8.7 mg/dL (7.8-10.44); Carbon Dioxide 30 mmol/L (23-31); Chloride 100 mmol/L (98-107); Estimated GFR-MDRD 68; Glucose 98 mg/dL (83-110); Potassium 3.7 mmol/L (3.5-5.1); Sodium 137 mmol/L (136-145)
[2017-10-15 05:44] LABS: Troponin I 0.116 ng/mL (< 0.028)
[2017-10-15] MEDS: Furosemide 100 MG/10 ML VIAL SLOW IVP SCH ×2 (06:29→14:49)
--- NOTE | 2017-10-15 08:26 | PDOC.PN ---
- Subjective Encounter Start Date: 10/15/17 Encounter Start Time: 08:25 Subjective: no chest pain, sob - Objective MAR Reviewed: Yes Vital Signs & Weight: Vital Signs (12 hours) Temp Pulse Resp BP Pulse Ox 10/15/17 08:08 97.8 F 84 22 H 145/84 H 98 10/15/17 04:00 97.4 F L 80 18 117/72 96 10/15/17 00:42 87 16 96 Weight Weight 216 lb 14.4 oz I&O: 10/14/17 10/15/17 10/16/17 06:59 06:59 06:59 Intake Total 1080 1720 Output Total 1650 2957 Balance -570 -1237 Result Diagrams: 10/13/17 04:53 10/15/17 05:12 Phys Exam - Physical Examination Neck: no JVD Respiratory: clear to auscultation bilateral Cardiovascular: no significant murmur, irregular Gastrointestinal: soft, no distention, positive bowel sounds Musculoskeletal: edema present Dx/Plan (1) Atrial fibrillation with RVR Code(s): I48.91 - UNSPECIFIED ATRIAL FIBRILLATION Status: Acute Comment: rate controlled (2) Back pain Code(s): M54.9 - DORSALGIA, UNSPECIFIED Status: Acute Qualifiers: Back pain location: low back pain Chronicity: unspecified Back pain laterality: bilateral Comment: has compression fractures per patient based on recent MRI (3) COPD exacerbation Code(s): J44.1 - CHRONIC OBSTRUCTIVE PULMONARY DISEASE W (ACUTE) EXACERBATION Status: Acute Comment: resolving (4) BPH (benign prostatic hyperplasia) Code(s): N40.0 - BENIGN PROSTATIC HYPERPLASIA WITHOUT LOWER URINRY TRACT SYMP Status: Chronic Qualifiers: Lower urinary tract symptom presence: unspecified whether lower urinary tract symptoms present Qualified Code(s): N40.0 - Benign prostatic hyperplasia without lower urinary tract symptoms (5) CAD (coronary artery disease) Code(s): I25.10 - ATHSCL HEART DISEASE OF [place] CORONARY ARTERY W/O ANG PCTRS Status: Chronic Qualifiers: Coronary Disease-Associated Artery/Lesion type: [place] artery [place] vs. transplanted heart: [place] heart Associated angina: without angina Qualified Code(s): I25.10 - Atherosclerotic heart disease of [place] coronary artery without angina pectoris (6) CKD (chronic kidney disease) stage 3, GFR 30-59 ml/min Code(s): N18.3 - CHRONIC KIDNEY DISEASE, STAGE 3 (MODERATE) Status: Chronic (7) Dyslipidemia Code(s): E78.5 - HYPERLIPIDEMIA, UNSPECIFIED Status: Chronic (8) Hypertension Code(s): I10 - ESSENTIAL (PRIMARY) HYPERTENSION Status: Chronic Qualifiers: Hypertension type: essential hypertension Qualified Code(s): I10 - Essential (primary) hypertension (9) Pleural effusion on left Code(s): J90 - PLEURAL EFFUSION, NOT ELSEWHERE CLASSIFIED Status: Acute (10) Cardiomyopathy Code(s): I42.9 - CARDIOMYOPATHY, UNSPECIFIED Status: Acute - Plan discussed with Dr Pham, marked drop in LVEF -: plan: hold eliquis, cath 10/17/17 -: OW cont current tx * .
[2017-10-15] MEDS: Ezetimibe 10 MG TAB PO SCH (08:57)
[2017-10-15] MEDS: Rosuvastatin 20 MG TAB PO SCH (08:57)
[2017-10-15] MEDS: Digoxin 0.125 MG TAB PO SCH (08:58)
[2017-10-15] MEDS: Cyanocobalamin (Vitamin B-12) 1,000 MCG TAB PO SCH (09:00)
[2017-10-15] MEDS: predniSONE 20 MG TAB PO SCH (09:00)
[2017-10-15] MEDS: Amoxicillin/Potassium Clav 875 MG TAB PO SCH ×2 (09:00→21:55)
[2017-10-15] MEDS: Enoxaparin Sodium 100 MG/ML SYRINGE SC SCH ×2 (09:01→21:54)
[2017-10-15] MEDS: Lidocaine 5% Patch TD SCH (09:01)
[2017-10-15] MEDS: Dorzolamide HCl 2% Ophth Soln 10 ml Bottle R EYE SCH ×2 (09:31→21:56)
[2017-10-15] MEDS: Brimonidine Tartrate 0.2% Ophth Soln 5 ml Bottle R EYE SCH ×2 (09:32→21:59)
[2017-10-15] MEDS: Latanoprost 0.005% Ophth Soln 2.5 ml Bottle R EYE SCH (09:32)
[2017-10-15] MEDS: Loteprednol Etabonate 0.5% Ophth Suspension 5 ml Bottle L EYE SCH ×2 (09:33→21:57)
[2017-10-15] MEDS: Mometasone/Formoterol 120 PUFF INHALER INH SCH (11:33)
[2017-10-15] MEDS: HYDROcodone/Acetaminophen 5/325 mg Tablet PO PRN ×2 (14:50→22:06)
[2017-10-15] MEDS: Polyethylene Glycol 3350 17 GM Packet PO PRN (14:56)
[2017-10-15] MEDS: Senokot 8.6 MG TAB PO PRN (18:17)
--- NOTE | 2017-10-15 20:14 | CON ---
DATE OF CONSULTATION: 10/15/2017 ELECTROPHYSIOLOGY CONSULTATION REPORT REFERRING PHYSICIAN: Ananda Pham M.D. REASON FOR CONSULTATION: Atrial fibrillation with rapid ventricular response. HISTORY OF PRESENT ILLNESS: Mr. Jones is currently hospitalized and came in with heart race and pal pitations. He has a history of atrial fibrillation which has been poorly suppressed with Multaq. He is on Eliquis for stroke prophylaxis; however, is technically subtherapeutic on his dosing; however, doses have been reduced in the past given his multiple skin tears and chronic bleeding issues with h is fragile skin. He also has a history of COPD. During this hospitalization, he has been found to h ave atrial fibrillation with RVR and also nonsustained VT. In the past, his EF has been preserved; h owever, recent echo reveals his ejection fraction to be 20-25%. Today he reports that he is hungry a nd he eager to eat. Other than that, he denies any current heart racing, palpitations, chest pain, o r pressure. He has not had any stroke or stroke-like symptoms including unilateral weakness, speech changes, vision changes, facial paresthesias. He denies any persistent cough. He does have chronic swelling of the extremities which is diagnosed as lymphedema and shortness of breath with his COPD. He reports that his shortness of breath has much improved since being diuresed. He continues to have fragile skin and bleeding from his skin tears. PAST MEDICAL HISTORY: 1. Persistent atrial fibrillation, poorly suppressed with Multaq for antiarrhythmic therapy. 2. Stroke prophylaxis. On Eliquis 2.5 mg, reduced dose given significant skin tears and bleeding pr oblems. 3. Coronary artery disease with stent placement in 04/2006 to the RCA. 4. Previously preserved LVEF. 5. Chronic venous insufficiency and lymphedema. 6. Stage 3 chronic kidney disease. 7. Hypertension. 8. Hyperlipidemia. 9. COPD. 10. Myocardial infarction. 11. Sleep apnea. REVIEW OF SYSTEMS: Twelve-point review of systems is conducted and is negative except that is liste d in the HPI. HOME MEDICATIONS: Vitamin B12 50 mcg daily, multivitamin daily, brimonidine ophthalmic solution, Leticia scooby 2.5 mg daily, dorzolamide ophthalmic solution, Flonase intranasal daily, furosemide 40 mg daily, latanoprost ophthalmic solution daily, haloperidol as needed, metoprolol succinate 25 mg daily, Mult aq 400 mg b.i.d., penicillin 250 mg daily, Symbicort 60/4.5 mg daily, tamsulosin 0.4 mg at bedtime, a nd Zetia 10 mg daily. SOCIAL HISTORY: The patient denies any smoking, alcohol, or drug abuse. FAMILY HISTORY: Noncontributory. Negative for sudden cardiac and early onset coronary artery disease for the age of 57. PHYSICAL EXAMINATION: VITAL SIGNS: Include 97.8 degrees Fahrenheit, pulse is 78, respirations 16, oxygen saturation is 98% on 3 liters of oxygen via nasal cannula. GENERAL: The patient is a somewhat ill-appearing male, in no acute distress. He is alert and oriented. His speech is clear. Affect is appropriate. NEUROLOGIC: The patient is alert and oriented. His exam is grossly intact. Exam is nonfocal. He d oes have left eyelid droop. HEENT: Sclerae anicteric. Oral mucous membranes are moist. He has adequate dentition. NECK: Supple without jugular venous distention. Thyroid is normal to palpation. There are no carot id bruits. PULMONARY: Lungs are clear to auscultation bilaterally, respirations are even and unlabored. CARDIAC: Heart rate is regularly regular with a controlled rate. EXTREMITIES: Warm and dry to touch without clubbing or cyanosis. Chronic lymphedema present. GI: Abdomen is soft and nontender. There is no hepatosplenomegaly. Hepatojugular reflux is negativ e. INTEGUMENTARY: The patient has darkly discolored skin which is very thin and fragile in appearance. There are numerous scars from previous skin tears, but no visible open areas at this time. LABORATORY DATA: Labs from 10/13/2017: WBC 4.2, hemoglobin 12.7, hematocrit 39.8, platelet count 14 4. Coagulation panel from 10/09/2017: PT 19.6, INR 1.6. Chemistries from 10/15/2017: Sodium 137, potassium 3.7, chloride 100, carbon dioxide 30, BUN is 27, creatinine is 1.05, calcium is 8.7. Seria l troponins are 0.082, 0.094, and 0.116. Chest x-ray from 10/13/2017, impression: Cardiomegaly with large bilateral pleural effusions. Echocardiogram on 10/10/2017; left ventricular hypertrophy, LVEF 20-25%, left atrium is severely dilated, markedly enlarged right atrium, moderate MR, mild AR, mild TR, and moderate pericardial effusion. CURRENT MEDICATIONS: Augmentin 875 mg p.o. b.i.d., aspirin 81 mg p.o. daily, Alphagan 0.2% ophthalmi c solution b.i.d. to the right eye, vitamin B12 1000 mcg p.o. daily, digoxin 0.125 mg p.o. daily, Nixon sopt 2% ophthalmic solution to the right eye b.i.d., Lovenox 100 mg subcu b.i.d., Zetia 10 mg p.o. da kim, Lasix 80 mg slow IV push twice a day, Xalatan 0.005% ophthalmic solution to the right eye q.a.m. , Lidoderm patch transdermal daily to the affected area, Lotemax 0.5% ophthalmic solution to the left eye b.i.d., Toprol XL 12.5 mg p.o. b.i.d., Dulera 200 mcg/5 mcg inhaler 2 puffs inhaler daily, Jarocho ax 17 grams p.o. as needed for constipation, prednisone 20 mg p.o. q.a.m., rosuvastatin 40 mg p.o. da kim, tamsulosin 0.4 mg at bedtime p.o. IMPRESSION: 1. Persistent atrial fibrillation with rapid ventricular response, poorly controlled with Multaq, no nsustained ventricular tachycardia. 2. Cardiomyopathy with EF newly estimated at 20-25%. 3. Chronic obstructive pulmonary disease. 4. Bleeding complications, on oral anticoagulation for stroke prophylaxis for atrial arrhythmias. RECOMMENDATIONS: At this time, the patient is scheduled to undergo a left heart catheterization in 2 days. It is reasonable to consider nonsustained VT and atrial fibrillation with RVR could be manife st of undiscovered coronary artery disease. At this time, the patient has rate controlled with his a trial fibrillation and atrial flutter. His ejection fraction is severely reduced at 20-25%, and the patient may qualify and benefit from ICD placement. However, we will wait until left heart catheteri zation was performed and proceed accordingly pending findings. At this time, our recommendation is f or continued rate control and stroke prophylaxis with anticoagulation. Thank you for the referral and allowing us to participate in the care of this patient. We will jensen nue to follow and reevaluate once left heart catheterization is complete.
[2017-10-15] MEDS: Tamsulosin HCl 0.4 MG CAP PO SCH (21:55)
[2017-10-15] MEDS: diphenhydrAMINE 25 MG CAP PO PRN (22:05)
[2017-10-16] MEDS: Furosemide 100 MG/10 ML VIAL SLOW IVP SCH (06:24)
[2017-10-16 06:28] LABS: Anion Gap 11 mmol/L (10-20); BUN (Urea Nitrogen) 29 mg/dL (8.4-25.7); Calc. Creatinine Clearance 73 mL/min (70-130); Calcium 8.5 mg/dL (7.8-10.44); Carbon Dioxide 30 mmol/L (23-31); Cardiac Risk 2.3 (Less than 4.5); Chloride 99 mmol/L (98-107); Cholesterol 97 mg/dl (< 200 Desired); Estimated GFR-MDRD 65; Glucose 116 mg/dL (83-110); HDL Cholesterol 42 mg/dL (>60 Neg Risk); LDL Cholesterol, Calculated 40 mg/dL; Potassium 3.9 mmol/L (3.5-5.1); Sodium 136 mmol/L (136-145); Triglycerides 74 mg/dL (Less than 150)
[2017-10-16] MEDS: Mometasone/Formoterol 120 PUFF INHALER INH SCH (07:01)
[2017-10-16] MEDS: Amoxicillin/Potassium Clav 875 MG TAB PO SCH ×2 (08:38→21:46)
[2017-10-16] MEDS: predniSONE 20 MG TAB PO SCH (08:38)
[2017-10-16] MEDS: Brimonidine Tartrate 0.2% Ophth Soln 5 ml Bottle R EYE SCH ×2 (08:39→22:44)
[2017-10-16] MEDS: Cyanocobalamin (Vitamin B-12) 1,000 MCG TAB PO SCH (08:39)
[2017-10-16] MEDS: Enoxaparin Sodium 100 MG/ML SYRINGE SC SCH (08:39)
[2017-10-16] MEDS: Digoxin 0.125 MG TAB PO SCH (08:39)
[2017-10-16] MEDS: Ezetimibe 10 MG TAB PO SCH (08:39)
[2017-10-16] MEDS: Dorzolamide HCl 2% Ophth Soln 10 ml Bottle R EYE SCH ×2 (08:39→22:44)
[2017-10-16] MEDS: Lidocaine 5% Patch TD SCH (08:40)
[2017-10-16] MEDS: Loteprednol Etabonate 0.5% Ophth Suspension 5 ml Bottle L EYE SCH ×2 (08:40→22:45)
[2017-10-16] MEDS: Latanoprost 0.005% Ophth Soln 2.5 ml Bottle R EYE SCH (08:40)
[2017-10-16] MEDS: Rosuvastatin 20 MG TAB PO SCH (08:41)
[2017-10-16] MEDS: Polyethylene Glycol 3350 17 GM Packet PO PRN (08:42)
[2017-10-16] MEDS: Senokot 8.6 MG TAB PO PRN (08:42)
--- NOTE | 2017-10-16 09:31 | PDOC.PN ---
- Subjective Encounter Start Date: 10/16/17 Encounter Start Time: 09:29 Subjective: no sob, pain still present in lumbar area with movement - Objective Vital Signs & Weight: Vital Signs (12 hours) Temp Pulse Resp BP Pulse Ox 10/16/17 08:39 91 10/16/17 08:29 97.6 F 91 16 128/72 95 10/16/17 06:59 87 18 95 10/16/17 04:00 98.2 F 85 18 95/48 L 97 10/15/17 23:27 80 16 98 Weight Weight 207 lb I&O: 10/15/17 10/16/17 10/17/17 06:59 06:59 06:59 Intake Total 1720 1200 Output Total 2957 4200 Balance -1237 -3000 Result Diagrams: 10/13/17 04:53 10/16/17 04:51 Phys Exam - Physical Examination Neck: no JVD Respiratory: clear to auscultation bilateral Cardiovascular: no significant murmur, irregular Gastrointestinal: soft, positive bowel sounds ankle edema resolved, 2+ edema in "love handles" Dx/Plan (1) Atrial fibrillation with RVR Code(s): I48.91 - UNSPECIFIED ATRIAL FIBRILLATION Status: Acute Comment: rate controlled (2) Back pain Code(s): M54.9 - DORSALGIA, UNSPECIFIED Status: Acute Qualifiers: Back pain location: low back pain Chronicity: unspecified Back pain laterality: bilateral Comment: has compression fractures per patient based on recent MRI (3) COPD exacerbation Code(s): J44.1 - CHRONIC OBSTRUCTIVE PULMONARY DISEASE W (ACUTE) EXACERBATION Status: Acute Comment: resolving (4) BPH (benign prostatic hyperplasia) Code(s): N40.0 - BENIGN PROSTATIC HYPERPLASIA WITHOUT LOWER URINRY TRACT SYMP Status: Chronic Qualifiers: Lower urinary tract symptom presence: unspecified whether lower urinary tract symptoms present Qualified Code(s): N40.0 - Benign prostatic hyperplasia without lower urinary tract symptoms (5) CAD (coronary artery disease) Code(s): I25.10 - ATHSCL HEART DISEASE OF [place] CORONARY ARTERY W/O ANG PCTRS Status: Chronic Qualifiers: Coronary Disease-Associated Artery/Lesion type: [place] artery [place] vs. transplanted heart: [place] heart Associated angina: without angina Qualified Code(s): I25.10 - Atherosclerotic heart disease of [place] coronary artery without angina pectoris (6) CKD (chronic kidney disease) stage 3, GFR 30-59 ml/min Code(s): N18.3 - CHRONIC KIDNEY DISEASE, STAGE 3 (MODERATE) Status: Chronic (7) Dyslipidemia Code(s): E78.5 - HYPERLIPIDEMIA, UNSPECIFIED Status: Chronic (8) Hypertension Code(s): I10 - ESSENTIAL (PRIMARY) HYPERTENSION Status: Chronic Qualifiers: Hypertension type: essential hypertension Qualified Code(s): I10 - Essential (primary) hypertension (9) Pleural effusion on left Code(s): J90 - PLEURAL EFFUSION, NOT ELSEWHERE CLASSIFIED Status: Acute (10) Cardiomyopathy Code(s): I42.9 - CARDIOMYOPATHY, UNSPECIFIED Status: Acute - Plan excellent diuresis, wt down to 207 -: change lasix to po -: renal fcn stable -: cardiac cat/ defibrillater tomorrow -: discuss with cardiology * .
--- NOTE | 2017-10-16 09:48 | PRG ---
DATE OF SERVICE: 10/16/2016 SUBJECTIVE: Mr. Jones is doing fair, somewhat better than yesterday. No new chest pains or palpita tions. OBJECTIVE: VITAL SIGNS: Blood pressure 128/72, heart 90, respiration 16, temperature 97.6 degrees Fahrenheit. GENERAL: He is alert and oriented man in no apparent distress. NECK: Supple. Jugular veins not distended. CHEST: Coarse, no crackles. CARDIOVASCULAR: Heart sounds are regular to rate and rhythm. No murmur or gallop. ABDOMEN: Benign. Bowel sounds positive. EXTREMITIES: Lower extremities without edema, clubbing or cyanosis. DATABASE: The EKG and telemetry strips reveal continued atrial fibrillation, occasional PVCs. No fu rther VT is seen. The ins and outs reveal -3 liters output overnight. LABORATORY DATA: White count is 4, hemoglobin 12.7, platelet count is 144. Electrolytes are normal range. BUN 29, creatinine 1.09, troponin levels are leveling out at 0.082 and 0.116. ASSESSMENT AND PLAN: 1. Mr. Jones is a 81-year-old man with prior history of persisting atrial fibrillation. He also rush s history of coronary artery disease, but previously normal LVEF. He also has history of myocardial infarction, now presenting with progressively worsening LVEF. The reason for this is not entirely cl ear, further worsening of his coronary status might be possible. He is going to have left heart salo terization tomorrow. If indeed no revascularization lesion is present, he likely could benefit from ICD implantation. 2. Atrial fibrillation, now persisting, not that symptomatic, although consideration for restoring s inus rhythm could be made in the future, but this is not priority pending the above procedure. 3. He will need to resume anticoagulation after these procedures.
[2017-10-16] MEDS ORDERED: Communication Order-Pharmacy FS SCH (11:15)
[2017-10-16] MEDS ORDERED: Furosemide 20 MG TAB PO SCH (14:00)
[2017-10-16] MEDS: Furosemide 80 MG TAB PO SCH (14:53)
[2017-10-16] MEDS: HYDROcodone/Acetaminophen 5/325 mg Tablet PO PRN ×2 (15:00→18:43)
[2017-10-16] MEDS: diphenhydrAMINE 25 MG CAP PO PRN ×2 (21:45→22:49)
[2017-10-16] MEDS: Tamsulosin HCl 0.4 MG CAP PO SCH (21:46)
[2017-10-16] MEDS ORDERED: Clopidogrel Bisulfate 75 MG TAB ONE (22:14)
[2017-10-17 05:54] LABS: Anion Gap 10 mmol/L (10-20); BUN (Urea Nitrogen) 30 mg/dL (8.4-25.7); Band 1 % (5-11); Calc. Creatinine Clearance 74 mL/min (70-130); Calcium 8.8 mg/dL (7.8-10.44); Carbon Dioxide 36 mmol/L (23-31); Chloride 96 mmol/L (98-107); Eosinophils 1 % (0-10); Estimated GFR-MDRD 67; Glucose 109 mg/dL (83-110); Hemoglobin 14.8 g/dL (14.0-18.0); Lymphocytes 15 % (21-51); MDiff Complete? YES; Mean Corpuscular HGB CONC 32.3 g/dL (32.0-36.0); Mean Corpuscular Hemoglobin 32.9 pg (27.0-31.0); Mean Platelet Volume 8.1 fL (7.4-10.4); Monocytes 9 % (0-10); Neutrophil 73 % (42-75); Platelet Count 163 thou/uL (130-400); Potassium 3.4 mmol/L (3.5-5.1); RBC Distribution Width 15.2 % (11.5-14.5); Reactive Lymphocytes 1 % (0-10); Red Blood Cell (RBC) Count 4.49 mill/uL (4.70-6.10); Sodium 139 mmol/L (136-145); White Blood Cell (WBC) Count 5.9 thou/uL (4.8-10.8)
[2017-10-17] MEDS ORDERED: Sodium Chloride 0.9% 1,000 ML IV SCH ×2 (06:00→07:54)
[2017-10-17] MEDS ORDERED: Heparin 10,000 UNITS/1 ML VIAL ONE (06:37)
[2017-10-17] MEDS: Ezetimibe 10 MG TAB PO SCH (06:42)
[2017-10-17] MEDS: Cyanocobalamin (Vitamin B-12) 1,000 MCG TAB PO SCH (06:42)
[2017-10-17] MEDS: Amoxicillin/Potassium Clav 875 MG TAB PO SCH ×2 (06:42→20:11)
[2017-10-17] MEDS: Rosuvastatin 20 MG TAB PO SCH (06:42)
[2017-10-17] MEDS: Furosemide 80 MG TAB PO SCH ×2 (06:42→15:00)
[2017-10-17] MEDS: Digoxin 0.125 MG TAB PO SCH (06:43)
[2017-10-17] MEDS ORDERED: Midazolam HCl 2 mg/2 ml Vial ONE ×2 (07:19→15:17)
[2017-10-17] MEDS ORDERED: Protamine Sulfate 50 MG/5 ML VIAL ONE (07:28)
[2017-10-17] MEDS ORDERED: Acetaminophen/Codeine 30-300mg Tablet PO PRN (07:53)
[2017-10-17] MEDS ORDERED: Nitroglycerin 0.4 MG TAB (25 Tab Bottle) SL PRN (07:53)
[2017-10-17] MEDS ORDERED: Sodium Chloride 0.9% 200 ML IV SCH (08:00)
[2017-10-17] MEDS: predniSONE 20 MG TAB PO SCH (08:11)
[2017-10-17] MEDS: Dorzolamide HCl 2% Ophth Soln 10 ml Bottle R EYE SCH ×2 (08:27→20:10)
[2017-10-17] MEDS: Latanoprost 0.005% Ophth Soln 2.5 ml Bottle R EYE SCH (08:27)
[2017-10-17] MEDS: Loteprednol Etabonate 0.5% Ophth Suspension 5 ml Bottle L EYE SCH ×2 (08:27→20:11)
[2017-10-17] MEDS: Brimonidine Tartrate 0.2% Ophth Soln 5 ml Bottle R EYE SCH ×2 (08:27→20:12)
[2017-10-17] MEDS: Lidocaine 5% Patch TD SCH (08:32)
[2017-10-17] MEDS: Mometasone/Formoterol 120 PUFF INHALER INH SCH (09:49)
[2017-10-17] MEDS ORDERED: Iopamidol 370 76% 50 ML VIAL FS ONE ×2 (12:56→16:28)
[2017-10-17] MEDS ORDERED: Lidocaine 1% PF 5 ML VIAL ONE (14:21)
[2017-10-17] MEDS ORDERED: PROPOFOL 200 MG/20 ML VIAL ONE (14:21)
[2017-10-17] MEDS ORDERED: PHENYLEPHRINE-NS 100 MCG/ML 10 ML SYRINGE ONE (14:21)
[2017-10-17] MEDS ORDERED: CEFAZOLIN/Water 2 GM/20 ML SYRINGE ONE (15:05)
[2017-10-17] MEDS ORDERED: Fentanyl 100 MCG/2 ML VIAL ONE (15:17)
[2017-10-17] MEDS ORDERED: Ondansetron HCl/PF 4 MG/2 ML Vial IVP PRN (15:59)
[2017-10-17] MEDS ORDERED: Promethazine HCl 25 MG/ML VIAL SLOW IVP PRN (15:59)
[2017-10-17] MEDS ORDERED: Iopamidol 370 76% 100 ML VIAL ONE (16:28)
[2017-10-17] MEDS ORDERED: DOPamine 400 MG/D5W 250 ML 250 ML IVPB PRN (18:37)
[2017-10-17] MEDS: Potassium Chloride 10 MEQ TAB PO SCH (18:46)
[2017-10-17] MEDS: Tamsulosin HCl 0.4 MG CAP PO SCH (20:11)
[2017-10-17] MEDS: Lidocaine Patch Removal 1 EACH TOP SCH (20:15)
--- NOTE | 2017-10-17 20:34 | PDOC.PN ---
- Subjective Encounter Start Date: 10/17/17 Encounter Start Time: 11:00 Subjective: f/u for CHF, persistent A-fib post LHC showing min CAD with EF 20%. - Objective MAR Reviewed: Yes Vital Signs & Weight: Vital Signs (12 hours) Temp Pulse Resp BP Pulse Ox 10/17/17 18:31 83 14 100 10/17/17 18:14 98.0 F 79 15 99 10/17/17 14:29 78 16 10/17/17 11:30 98.0 F 78 16 115/69 Weight Weight 207 lb I&O: 10/16/17 10/17/17 10/18/17 06:59 06:59 06:59 Intake Total 1200 1320 Output Total 4200 2475 Balance -3000 -1155 Result Diagrams: 10/18/17 07:03 10/18/17 03:32 Additional Labs: Laboratory Tests 10/09/17 10/13/17 10/13/17 12:26 09:02 11:50 Potassium Creatinine Troponin I 0.082 H 0.094 H B-Natriuretic Peptide 575.8 H Triglycerides Cholesterol LDL Cholesterol, Calc HDL Cholesterol 10/15/17 10/15/17 10/16/17 05:12 05:12 04:51 Potassium 3.9 Creatinine 1.05 1.09 Troponin I 0.116 H B-Natriuretic Peptide Triglycerides 74 Cholesterol 97 LDL Cholesterol, Calc 40 HDL Cholesterol 42 Radiology Reviewed by me: Yes (LHC - min CAD, EF 20%) EKG Reviewed by me: Yes (Tele - A-fib) Phys Exam - Physical Examination Constitutional: NAD HEENT: PERRLA, oral pharynx no lesions Neck: no JVD, supple diminished in bases Respiratory: no wheezing Cardiovascular: irregular Gastrointestinal: soft, non-tender, no distention, positive bowel sounds Musculoskeletal: pulses present, edema present Neurological: moves all 4 limbs Skin: normal turgor, cap refill <2 seconds Dx/Plan (1) Systolic CHF Code(s): I50.20 - UNSPECIFIED SYSTOLIC (CONGESTIVE) HEART FAILURE Status: Acute Qualifiers: Congestive heart failure chronicity: acute on chronic Qualified Code(s): I50.23 - Acute on chronic systolic (congestive) heart failure Comment: continue diuresis, LHC showing minimal CAD, Lasix 80mg BID (2) Atrial fibrillation with RVR Code(s): I48.91 - UNSPECIFIED ATRIAL FIBRILLATION Status: Acute Comment: rate controlled, continue Digoxin and Metoprolol (3) Back pain Code(s): M54.9 - DORSALGIA, UNSPECIFIED Status: Acute Qualifiers: Back pain location: low back pain Chronicity: unspecified Back pain laterality: bilateral Comment: has compression fractures per patient based on recent MRI, Lidocaine patch, PT (4) Cardiomyopathy Code(s): I42.9 - CARDIOMYOPATHY, UNSPECIFIED Status: Acute Comment: See above, AICD placement (5) Pleural effusion on left Code(s): J90 - PLEURAL EFFUSION, NOT ELSEWHERE CLASSIFIED Status: Acute (6) CKD (chronic kidney disease) stage 3, GFR 30-59 ml/min Code(s): N18.3 - CHRONIC KIDNEY DISEASE, STAGE 3 (MODERATE) Status: Chronic (7) Hypertension Code(s): I10 - ESSENTIAL (PRIMARY) HYPERTENSION Status: Chronic Qualifiers: Hypertension type: essential hypertension Qualified Code(s): I10 - Essential (primary) hypertension Comment: Stable, continue current BP regimen - Plan continue antibiotics, PT/OT, social worker palliative care, respiratory therapy, out of bed/ ambulate, DVT proph w/SCDs Stable currently -: Continue Lasix 80mg po BID -: PT for mobilization -: Continue Prednisone 20mg daily -: AM lab: BMP * .
[2017-10-17] MEDS: traMADol HCl 50 MG TAB PO PRN (22:06)
[2017-10-18] MEDS: diphenhydrAMINE 25 MG CAP PO PRN ×2 (01:21→21:44)
[2017-10-18] MEDS: Acetaminophen 500 MG TAB PO PRN ×2 (01:22→21:44)
[2017-10-18 04:23] LABS: Anion Gap 11 mmol/L (10-20); BUN (Urea Nitrogen) 27 mg/dL (8.4-25.7); Calc. Creatinine Clearance 84 mL/min (70-130); Calcium 8.9 mg/dL (7.8-10.44); Carbon Dioxide 29 mmol/L (23-31); Chloride 100 mmol/L (98-107); Estimated GFR-MDRD 76; Glucose 127 mg/dL (83-110); Potassium 4.2 mmol/L (3.5-5.1); Sodium 136 mmol/L (136-145)
[2017-10-18] MEDS: Mometasone/Formoterol 120 PUFF INHALER INH SCH (06:49)
[2017-10-18 07:36] LABS: #Lymphocytes 0.6 thou/uL (1.20-3.40); #Monocytes 0.6 thou/uL (0.11-0.59); #Neutrophils 5.7 thou/uL (1.40-6.50); %Basophils 0.3 % (0.0-1.0); %Eosinophils 0.5 % (0.0-10.0); %Lymphocytes 8.2 % (21.0-51.0); Hemoglobin 15.7 g/dL (14.0-18.0); Mean Corpuscular HGB CONC 31.5 g/dL (32.0-36.0); Mean Corpuscular Hemoglobin 31.8 pg (27.0-31.0); Mean Platelet Volume 8.6 fL (7.4-10.4); Platelet Count 154 thou/uL (130-400); RBC Distribution Width 15.3 % (11.5-14.5); Red Blood Cell (RBC) Count 4.94 mill/uL (4.70-6.10); White Blood Cell (WBC) Count 6.9 thou/uL (4.8-10.8)
[2017-10-18] MEDS: Potassium Chloride 10 MEQ TAB PO SCH ×2 (08:24→16:07)
--- NOTE | 2017-10-18 08:24 | RAD ---
PORTABLE CHEST 1 VIEW: DATE: 10/18/17. TIME: 5:07 a.m. HISTORY: Post cardiac device placement. FINDINGS: There has been interval placement of a right-sided pacemaker device since the exam of 10/13/17. No pn eumothorax is seen. The heart is enlarged. Left-sided pleural effusions again noted with consolidat ion/atelectatic change in the left lung base. The right pleural effusion has improved. Postop strong es of right rotator cuff repair are again seen. POS: SHAHEED
[2017-10-18] MEDS: predniSONE 20 MG TAB PO SCH (08:25)
[2017-10-18] MEDS ORDERED: Fentanyl 100 MCG/2 ML VIAL ONE ×2 (08:42→11:14)
[2017-10-18] MEDS ORDERED: CEFAZOLIN/Water 2 GM/20 ML SYRINGE ONE (09:34)
--- NOTE | 2017-10-18 10:29 | PRG ---
DATE OF SERVICE: 10/18/2017 REFERRING PHYSICIAN: Dr. Pham SUBJECTIVE: Mr. Jones is doing fair this morning, minor discomfort in the incision site. He underwent a dual-chamber ICD placement last night. He was transferred to ICU hence the large pericardial effusion which though seemed to have been preexisting even prior to this procedure today. He was transferred for monitoring. Overnight he remains stable, but at night his blood pressure was transiently in the 80s when IV dopamine was transiently used. This morning , his blood pressure up to 150s, his dopamine was turned off. He currently has no chest pains or dyspnea lying flat. No fever, chills or cough. No stroke- like symptoms, back pain, chronic noted. Respiratory system was unremarkable. OBJECTIVE: VITAL SIGNS: Blood pressure this morning 150/87 on dopamine 1.5 mcg per kg per minute. The heart rate is 118, respirations 12, temperature 97.7 degrees Fahrenheit. GENERAL: Alert and oriented man in no apparent distress. NECK: Supple. Jugular veins are minimally distended. CHEST: Coarse without crackles. CARDIOVASCULAR: Heart sounds are irregularly irregular. S1 and S2 variable. No murmur or gallop. Right subclavian ICD insertion site is well healed. ABDOMEN: Benign. Bowel sounds positive. EXTREMITIES: Lower extremities without edema, clubbing or cyanosis. DATABASE: The telemetry strips reveal continued atrial fibrillation, no significant ventricular arrhythmias, occasional rapid rates while on dopamine. LABORATORY DATA: White count 6.9, hemoglobin 15.7, platelet count is 154. INR 1.6 on the 24th. Sodium 136, potassium 4.2, BUN is 20, creatinine 0.9. The chest x-ray from this morning reveals enlarged heart silhouette, chronic left pleural effusion, also changes in the right rotator cuff repair is seen, ICD is in place. DATABASE: ICD interrogation was performed revealing a Medtronic Evera XT MRI compatible dual chamber device with battery voltage at the beginning of life. Lead parameters are impedance 456 and atrium 361, RV capture thresholds are adequate, sensing 1.1 millivolts in the right atrium and 12.8 mm right ventricle. CONCLUSION: 1. Adequate functioning dual chamber ICD 1 day post-implant. 2. Large preexisting pericardial effusion without overt signs of tamponade although with some degree of hemodynamic instability overnight, but now resolving. 3. Systolic congestive heart failure with severely reduced LV function. 4. Chronic atrial fibrillation. 5. Anticoagulation now on hold for heart catheterization and above procedure. 6. Preexisting large pleural and pericardial effusion. PLAN: Patient underwent attempted pericardiocentesis, but due to the clotting material was difficult to drain the pericardial effusion. Request was made to Cardiothoracic Surgery to proceed with pericardial window placement. SEBASTIAN
[2017-10-18] MEDS ORDERED: Lidocaine 1% w/Epinephrine 1:200K 30 ML VIAL ONE (10:37)
[2017-10-18] MEDS ORDERED: Iopamidol 370 76% 50 ML VIAL FS ONE (11:19)
--- NOTE | 2017-10-18 11:48 | OP ---
DATE OF PROCEDURE: 10/18/2017 PERICARDIOCENTESIS REPORT REFERRING PHYSICIAN: Dr. Pham REASON FOR PROCEDURE: Mr. Jones is a 81-year-old male who had history of atrial fibrillation. He p resented with advanced heart failure symptoms and atrial fibrillation with rapid ventricular response . Also, his LVEF is in the severe reduced range. He has prior history of coronary artery disease an d stent placement as well. He was noted to have a large pericardial effusion on admit echo, but it w as not in clearly tamponade. He underwent a dual-chamber ICD placement by me on 10/17/2017, but again the large pericardial effusi on noted postop. He remained hemodynamically stable throughout the procedure, but overnight he requi red transient dopamine for systolic blood pressures in the 80s. The next morning, his blood pressure again stabilized. The decision was made to attempt a pericardiocentesis today. The risks and benef its of procedure were explained to the patient and he is willing to proceed. PROCEDURE: The patient received fentanyl for analgesia and subcutaneous lidocaine in the subxiphoid space. Under both ultrasound and fluoroscopic guidance, a large bore spinal needle was advanced unde r again fluoroscopic guidance. Contrast injections to the pericardial space. Pericardial space was accessed, but only clotty materials were extracted. We were not able to drain the effusion, hence th e clots. The needle then withdrawn from the space. The patient remained stable throughout the proce dure. Blood pressure did not drop. Also his rhythm remained stable as well. ICD function is adequa te. CONCLUSION: 1. Pericardiocentesis with suboptimal drainage of the pericardial space performed. 2. Likely clots impeding the inferior access to the pericardium. 3. Plan consider surgical window placement for relieving the pericardial effusion. ADDENDUM: I contacted Dr. Pham and Dr. Duron, the cardiovascular surgeon. He has currently agre e to evaluate the patient for potential window. He left the Water Treatment Technician, regained consciousness and no further complications noted.
[2017-10-18] MEDS ORDERED: Promethazine HCl 25 MG/ML VIAL IM PRN (12:01)
[2017-10-18] MEDS ORDERED: Promethazine HCl 25 MG/ML VIAL SLOW IVP PRN (12:01)
[2017-10-18] MEDS ORDERED: Ondansetron HCl/PF 4 MG/2 ML Vial IVP PRN (12:01)
[2017-10-18] MEDS: Amoxicillin/Potassium Clav 875 MG TAB PO SCH ×2 (12:08→21:26)
[2017-10-18] MEDS: Cyanocobalamin (Vitamin B-12) 1,000 MCG TAB PO SCH (12:08)
[2017-10-18] MEDS: Brimonidine Tartrate 0.2% Ophth Soln 5 ml Bottle R EYE SCH ×2 (12:08→21:28)
--- NOTE | 2017-10-18 12:08 | OP ---
DATE OF PROCEDURE: 10/18/2017. PREOPERATIVE DIAGNOSIS: Congestive heart failure with large pericardial effusion. POSTOPERATIVE DIAGNOSIS: Congestive heart failure with large pericardial effusion. PROCEDURE: Pericardial window. SURGEON: Ubaldo Duron M.D. ANESTHESIA: General endotracheal. ESTIMATED BLOOD LOSS: Minimal. DRAINS: 19-Turkmen fluted Arnoldo drain. FINDINGS: 750 mL of clear straw-colored fluid. DESCRIPTION OF PROCEDURE: After consent was obtained, the patient was brought to the operating room and placed in the supine position on the operating room table. Appropriate anesthetic monitor was pl aced. Chest was prepped and draped in usual sterile fashion. Skin incision was made over the xiphoi d. The subxiphoid dissection was performed to the pericardium. Pericardium sharply entered. A 750 mL of straw-colored fluid was evacuated. A 19-Turkmen drain was placed and secured to the skin. The fascia was closed in interrupted fashion with 0 Vicryl suture. Wounds were then closed in layers and Dermabond applied to the skin. The patient tolerated the procedure well and was transferred back to the intensive care unit in stable condition.
[2017-10-18] MEDS: Digoxin 0.125 MG TAB PO SCH (12:09)
[2017-10-18] MEDS: Dorzolamide HCl 2% Ophth Soln 10 ml Bottle R EYE SCH ×2 (12:09→21:29)
[2017-10-18] MEDS: Furosemide 80 MG TAB PO SCH ×2 (12:09→13:18)
[2017-10-18] MEDS: Ezetimibe 10 MG TAB PO SCH (12:09)
[2017-10-18] MEDS: Latanoprost 0.005% Ophth Soln 2.5 ml Bottle R EYE SCH (12:10)
[2017-10-18] MEDS: Lidocaine 5% Patch TD SCH (12:10)
[2017-10-18] MEDS: Loteprednol Etabonate 0.5% Ophth Suspension 5 ml Bottle L EYE SCH ×2 (12:10→21:29)
[2017-10-18] MEDS: Rosuvastatin 20 MG TAB PO SCH (12:10)
--- NOTE | 2017-10-18 12:13 | CON ---
DATE OF CONSULTATION: 10/18/2017 HISTORY OF PRESENT ILLNESS: Mr. Jones is a 81-year-old gentleman with history of coronary artery di sease and congestive heart failure. He was in the hospital and underwent cardiac catheterization fol lowed by defibrillator placement. On echocardiogram, pre-defibrillator placement, he had a large per icardial effusion. Overnight, last night, he has required dopamine institution to support his blood pressure. He has had an attempt at pericardiocentesis today, which was unsuccessful and I have been asked to see him to place a pericardial window. PAST MEDICAL AND SURGICAL HISTORY: 1. Congestive heart failure. 2. Chronic atrial fibrillation. 3. Chronic back pain. 4. Hypertension. 5. Dyslipidemia. 6. Chronic obstructive pulmonary disease. 7. Benign prostatic hypertrophy. 8. History of left eye surgery. 9. Appendectomy. 10. Left shoulder replacement. 11. Right rotator cuff repair. 12. Tonsillectomy. 13. Defibrillator placement. ALLERGIES: None. CURRENT MEDICATIONS: Noted - the patient has been off his Eliquis for the last 3 days. SOCIAL HISTORY: He quit smoking in 1999. Previous to that, he was a heavy smoker. He is an d accompanied by his . REVIEW OF SYSTEMS: Ten-point review of systems is performed and is negative except as above. PHYSICAL EXAMINATION: GENERAL: This is a well-developed, well-nourished gentleman resting comfortably in bed. VITAL SIGNS: Height 6 feet 0 inches, weight is 209 pounds, BSA is 2.20. Temperature is 98.7, pulse is 96 and regular, blood pressure 150/87. NECK: Supple, without bruit. CHEST: Clear bilaterally. HEART: Rhythm is regular with distant heart tones. ABDOMEN: Soft and nontender. EXTREMITIES: No cyanosis, clubbing or edema. X-RAY FINDINGS: Chest x-ray series has been reviewed. IMAGING DATA: Echocardiograms have been reviewed. ASSESSMENT AND PLAN: Mr. Jones is a 81-year-old gentleman with large pericardial effusion and hypot ension with congestive heart failure and coronary artery disease, post-defibrillator placement. He r equired pressors overnight. I have been asked to see him to drain this pericardial fluid. We discus sed the subxiphoid pericardial window and he is agreeable.
[2017-10-18] MEDS ORDERED: PHENYLEPHRINE-NS 100 MCG/ML 10 ML SYRINGE ONE (14:01)
[2017-10-18] MEDS ORDERED: PROPOFOL 200 MG/20 ML VIAL ONE (14:01)
[2017-10-18] MEDS ORDERED: Lidocaine 1% PF 5 ML VIAL ONE (14:01)
--- NOTE | 2017-10-18 14:35 | CON ---
DATE OF SERVICE: 10/18/2017 SERVICE: Pulmonary Medicine. REASON FOR CONSULTATION: ICU patient. HISTORY OF PRESENT ILLNESS: The patient is a 81-year-old debilitated white male who presented to the hospital on 10/10/2017 with atrial fibrillation with RVR. Ultimately, he failed some conservative management. He was discovered to have a cardiomyopathy with 20% ejection fraction, had a couple of episodes of ventricular tachycardia. He also had some anasarca present. He had a large pericardial effusion identified with possible tamponade physiology. Ultimately , after the AICD was placed, he was tucked into the ICU. In this location, the patient required a little bit of dopamine, which was weaned off overnight. The following morning, he was going to undergo pericardiocentesis. An inferior approach was not successful. This prompted Cardiothoracic Surgery to do a pericardial window. The patient is recovering very nicely from this procedure and has no complaints of chest pain, shortness of breath, nausea, vomiting or diarrhea. Otherwise, he is returning to his usual state of health and fairly happy with the way things are currently progressing. PAST MEDICAL HISTORY: 1. Atrial fibrillation, chronic. 2. Hypertension. 3. Dyslipidemia. 4. Coronary artery disease. 5. COPD. 6. Obstructive sleep apnea. 7. BPH. PAST SURGICAL HISTORY: 1. Left eye surgery. 2. Appendectomy. 3. Shoulder replacement on the left. 4. Rotator cuff repair on the left. 5. Tonsillectomy. 6. AICD placement. ALLERGIES: No known drug allergies. MEDICATIONS LIST: List of his inpatient medications were reviewed. No specific updates were made at this time. FAMILY HISTORY: Noncontributory. SOCIAL HISTORY: Negative for current alcohol, tobacco or illicit drug use. He has been bedbound for greater part of 2 weeks because of back discomfort. He has a back brace that he is supposed to be wearing whenever he moves around, but he has not been able to use it as of yet. REVIEW OF SYSTEMS: Showing general, head, ears, eyes, nose, throat, cardiovascular, respiratory, GI, , musculoskeletal, neurologic and skin is negative except as mentioned in the HPI. PHYSICAL EXAMINATION: VITAL SIGNS: Afebrile, pulse 113/71, respirations 16, saturation 100% on 2 liters nasal cannula. GENERAL: Patient is awake, alert, in no apparent distress. LUNGS: Excellent air entry. There are crackles present. Slightly prolonged expiratory phase is present. No wheezing or rhonchi are otherwise appreciated. HEART: Normal rate, regular. ABDOMEN: Soft, nontender, nondistended. Bowel sounds are positive. MUSCULOSKELETAL: No cyanosis or clubbing. There is no pitting in the legs. That being said, he got 2 to 3+ pitting in the sacral region. GENITOURINARY: No Lai catheter. NEUROLOGIC: Grossly nonfocal. LABORATORY DATA: WBC 6.9, hemoglobin 15.7, platelets 154,000. INR 1.6. Basic metabolic profile is completely unremarkable with a creatinine stable at 0.95. Cardiac enzymes were previously trending upward to 0.116. Blood cultures x2 were negative. Influenza A and B are unremarkable. IMAGING DATA: Chest x-ray demonstrates right-sided pacemaker device has been placed with no evidence of pneumothorax. The heart is enlarged. There is a left-sided pleural effusion with consolidation or atelectasis changes in the left base. Right-sided pleural effusion is smaller. Postop changes are once again identified. Echocardiogram demonstrates a 20% ejection fraction with large pleural effusion, moderate pericardial effusion. ASSESSMENT: 1. Acute hypoxic respiratory failure. 2. Atrial fibrillation with rapid ventricular response. 3. Acute on chronic systolic heart failure. 4. Left-sided pleural effusion. 5. Obstructive sleep apnea. 6. Chronic obstructive pulmonary disease without current exacerbation. PLAN: We will diurese the patient down to euvolemia. If he remains stable off of pressors overnight, he will be to stable for transition back to the telemetry unit. Pulmonary will continue to follow while the patient remains in this location. We will make certain the patient has access to his BiPAP at night while sleeping. 70 minutes have been devoted to this patient in various activities. I personally reviewed all imaging studies and laboratory data noted within this document. For at least half of this time, I was interacting with the patient at the bedside or coordinating care with the care team. For the remainder of the time I was immediately available to the patient in the hospital unit. SEBASTIAN
--- NOTE | 2017-10-18 18:46 | PDOC.PN ---
- Subjective Encounter Start Date: 10/18/17 Encounter Start Time: 18:30 Subjective: f/u s/p AICD placement with development of large pericardial effusion -: requiring pressors overnight. s/p pericardial window -: after unsuccessful pericardiocentesis. Feels much better. - Objective MAR Reviewed: Yes Vital Signs & Weight: Vital Signs (12 hours) Temp Pulse Resp Pulse Ox 10/18/17 15:57 98.6 F 10/18/17 13:19 79 16 100 10/18/17 12:41 98.4 F 88 14 100 10/18/17 12:09 101 H 10/18/17 06:47 101 H 14 98 Weight Weight 209 lb 7.026 oz Most Recent Monitor Data Heart Rate from ECG 88 NIBP 110/60 NIBP BP-Mean 65 Respiration from ECG 15 SpO2 96 I&O: 10/17/17 10/18/17 10/19/17 06:59 06:59 06:59 Intake Total 1320 1060 840 Output Total 2475 1250 725 Balance -1155 -190 115 Result Diagrams: 10/18/17 07:03 10/18/17 03:32 EKG Reviewed by me: Yes (Tele - A-fib in 80's) Phys Exam - Physical Examination Constitutional: NAD HEENT: PERRLA, oral pharynx no lesions Neck: no JVD, supple diminished in bases R chest with AICD in place, +ecchymosis, edema Cardiovascular: irregular Gastrointestinal: soft, non-tender, no distention, positive bowel sounds Musculoskeletal: pulses present, edema present Neurological: normal sensation, moves all 4 limbs Psychiatric: A&O x 3 Skin: normal turgor, cap refill <2 seconds Dx/Plan (1) Pericardial effusion Code(s): I31.3 - PERICARDIAL EFFUSION (NONINFLAMMATORY) Status: Acute Comment: s/p pericardial window 10/18/17 with 750ml removed, supportive mgmt (2) Systolic CHF Code(s): I50.20 - UNSPECIFIED SYSTOLIC (CONGESTIVE) HEART FAILURE Status: Acute Qualifiers: Congestive heart failure chronicity: acute on chronic Qualified Code(s): I50.23 - Acute on chronic systolic (congestive) heart failure Comment: continue diuresis, LHC showing minimal CAD, Lasix 80mg BID (3) Atrial fibrillation with RVR Code(s): I48.91 - UNSPECIFIED ATRIAL FIBRILLATION Status: Acute Comment: rate controlled, continue Digoxin and Metoprolol (4) Back pain Code(s): M54.9 - DORSALGIA, UNSPECIFIED Status: Acute Qualifiers: Back pain location: low back pain Chronicity: unspecified Back pain laterality: bilateral Comment: has compression fractures per patient based on recent MRI, Lidocaine patch, PT (5) Cardiomyopathy Code(s): I42.9 - CARDIOMYOPATHY, UNSPECIFIED Status: Acute Comment: See above, s/p R-sided AICD placement 10/17/17 (6) Pleural effusion on left Code(s): J90 - PLEURAL EFFUSION, NOT ELSEWHERE CLASSIFIED Status: Acute (7) CKD (chronic kidney disease) stage 3, GFR 30-59 ml/min Code(s): N18.3 - CHRONIC KIDNEY DISEASE, STAGE 3 (MODERATE) Status: Chronic (8) Hypertension Code(s): I10 - ESSENTIAL (PRIMARY) HYPERTENSION Status: Chronic Qualifiers: Hypertension type: essential hypertension Qualified Code(s): I10 - Essential (primary) hypertension Comment: Stable, continue current BP regimen - Plan continue antibiotics, PT/OT, respiratory therapy, DVT proph w/SCDs Continue supportive mgmt -: Lasix 80mg po BID -: Continue Metoprolol and Digoxin -: PT for mobilization -: AM lab: BMP * .
[2017-10-18] MEDS: Tamsulosin HCl 0.4 MG CAP PO SCH (21:26)
[2017-10-18] MEDS: Lidocaine Patch Removal 1 EACH TOP SCH (21:29)
[2017-10-18] MEDS: traMADol HCl 50 MG TAB PO PRN (21:45)
[2017-10-19 04:31] LABS: Anion Gap 12 mmol/L (10-20); BUN (Urea Nitrogen) 27 mg/dL (8.4-25.7); Calc. Creatinine Clearance 81 mL/min (70-130); Calcium 8.7 mg/dL (7.8-10.44); Carbon Dioxide 30 mmol/L (23-31); Chloride 102 mmol/L (98-107); Estimated GFR-MDRD 73; Glucose 118 mg/dL (83-110); Sodium 140 mmol/L (136-145)
[2017-10-19] MEDS: Mometasone/Formoterol 120 PUFF INHALER INH SCH (09:01)
[2017-10-19] MEDS: Dorzolamide HCl 2% Ophth Soln 10 ml Bottle R EYE SCH ×2 (09:04→21:14)
[2017-10-19] MEDS: Loteprednol Etabonate 0.5% Ophth Suspension 5 ml Bottle L EYE SCH ×2 (09:05→21:14)
[2017-10-19] MEDS: Latanoprost 0.005% Ophth Soln 2.5 ml Bottle R EYE SCH (09:06)
[2017-10-19] MEDS: Brimonidine Tartrate 0.2% Ophth Soln 5 ml Bottle R EYE SCH ×2 (09:06→21:14)
[2017-10-19] MEDS: Amoxicillin/Potassium Clav 875 MG TAB PO SCH ×2 (09:07→21:23)
[2017-10-19] MEDS: Cyanocobalamin (Vitamin B-12) 1,000 MCG TAB PO SCH (09:07)
[2017-10-19] MEDS: Potassium Chloride 10 MEQ TAB PO SCH ×2 (09:07→16:37)
[2017-10-19] MEDS: Digoxin 0.125 MG TAB PO SCH (09:08)
[2017-10-19] MEDS: Furosemide 80 MG TAB PO SCH ×2 (09:08→14:51)
[2017-10-19] MEDS: Ezetimibe 10 MG TAB PO SCH (09:08)
[2017-10-19] MEDS: Rosuvastatin 20 MG TAB PO SCH (09:08)
[2017-10-19] MEDS: predniSONE 20 MG TAB PO SCH (09:10)
[2017-10-19] MEDS: Lidocaine 5% Patch TD SCH (09:12)
--- NOTE | 2017-10-19 11:52 | PRG ---
DATE OF SERVICE: 10/19/2017 SERVICE: Pulmonary Medicine. INTERVAL HISTORY: The patient is doing fine from a respiratory standpoint. He denies any current shortness of breath or chest discomfort. He is very confused about the situation, what the events are. That being said, his breathing is comfortable. He had no significant events overnight. PHYSICAL EXAMINATION: VITAL SIGNS: Afebrile, pulse 99, blood pressure 103/56, respirations 15, saturation 100% on 2 liters nasal cannula. GENERAL: Patient is awake, alert, in no apparent distress. LUNGS: Decent air entry. There is no prolonged expiratory phase or wheezing appreciated. HEART: Normal rate, regular. ABDOMEN: Soft, nontender, nondistended. Bowel sounds are positive. MUSCULOSKELETAL: No cyanosis or clubbing. There is no pitting in the bilateral lower extremities. NEUROLOGIC: Grossly nonfocal. LABORATORY DATA: Basic metabolic profile was essentially unremarkable with a BUN of 27 and a creatinine that is stable at 0.99. Influenza A and B are negative. Blood cultures x2 were also unremarkable. ASSESSMENT: 1. Acute hypoxic respiratory failure, resolving. 2. Atrial fibrillation with rapid ventricular response. 3. Acute on chronic systolic heart failure. 4. Left-sided pleural effusion. 5. Obstructive sleep apnea. 6. Chronic obstructive pulmonary disease without current exacerbation. DISCUSSION, PLAN: The patient is stable for transition back to the telemetry unit. Pulmonary will continue to follow while he remains in this location. He will continue his BiPAP at night and as needed for a.m. sleep. A repeat chest x -ray will need to be done in 2-4 weeks in the outpatient setting to verify the effusion resolves. If it does not, additional investigation will need to be considered. SEBASTIAN
[2017-10-19] MEDS: Lidocaine Patch Removal 1 EACH TOP SCH (21:15)
[2017-10-19] MEDS: Tamsulosin HCl 0.4 MG CAP PO SCH (21:16)
[2017-10-19] MEDS: Acetaminophen 500 MG TAB PO PRN (21:16)
[2017-10-19] MEDS: diphenhydrAMINE 25 MG CAP PO PRN (21:17)
[2017-10-19] MEDS: traMADol HCl 50 MG TAB PO PRN (21:18)
--- NOTE | 2017-10-19 22:34 | PDOC.PN ---
- Subjective Encounter Start Date: 10/19/17 Encounter Start Time: 17:00 Patient seen and examined. No new complaints. No overnight events - Objective MAR Reviewed: Yes Vital Signs & Weight: Vital Signs (12 hours) Temp Pulse Resp Pulse Ox 10/19/17 20:00 97.9 F 97 14 99 10/19/17 19:01 100 10/19/17 19:00 96 18 100 10/19/17 15:59 97.5 F L 10/19/17 14:11 92 20 100 10/19/17 12:00 98.3 F Weight Weight 3.316 oz Most Recent Monitor Data Heart Rate from ECG 88 NIBP 119/67 NIBP BP-Mean 85 Respiration from ECG 13 SpO2 100 I&O: 10/18/17 10/19/17 10/20/17 06:59 06:59 06:59 Intake Total 1060 1620 1760 Output Total 1250 1865 1060 Balance -190 -245 700 Result Diagrams: 10/18/17 07:03 10/19/17 03:26 EKG Reviewed by me: Yes (Tele Afib) Phys Exam - Physical Examination Constitutional: NAD Respiratory: no wheezing, no rhonchi Cardiovascular: no rub, irregular Gastrointestinal: soft, non-tender, positive bowel sounds Musculoskeletal: no edema Neurological: moves all 4 limbs Dx/Plan - Plan DVT proph w/SCDs IMPRESSION: 1. Afib with RVR 2. Chronic systolic HF s/p AICD 3. Pericardial effusion s/p Pericardial window 4. CAD s/p stent & LA 5. HTN/HLD/COPD/HARMONY on CPAP/Chronic back pain/COPD/BPH PLAN: * Taper Prednisone * AM labs * Transfer to tele * Consult PT * Cont current meds as below * DC Lidocaine patch * Add scheduled Acetaminophen * Cont to monitor * Cardio/CT/Critical care following. Review of Systems - Review of Systems Respiratory: negative: Cough, Dry, Shortness of Breath, Hemoptysis, SOB with Excertion, Pleuritic Pain, Sputum, Wheezing Cardiovascular: negative: chest pain, palpitations, orthopnea, paroxysmal nocturnal dyspnea, edema, light headedness - Medications/Allergies Allergies/Adverse Reactions: Allergies Allergy/AdvReac Type Severity Reaction Status Date / Time No Known Allergies Allergy Verified 06/15/17 06:23 Medications: Current Medications Acetaminophen (Tylenol) 650 mg PO Q4H PRN PRN Reason: Headache/Fever or Pain Last Admin: 10/13/17 10:42 Dose: 650 mg Acetaminophen (Tylenol) 1,000 mg PO HSPRN PRN PRN Reason: Insomnia Last Admin: 10/19/17 21:16 Dose: 1,000 mg Acetaminophen (Tylenol) 650 mg PO TID [facility] Acetaminophen/Codeine Phosphate (Tylenol #3) 1 tab PO Q4H PRN PRN Reason: Mild Pain (1-3) Acetaminophen/Codeine Phosphate (Tylenol #3) 2 tab PO Q4H PRN PRN Reason: Moderate Pain (4-6) Albuterol/Ipratropium (Duoneb) 3 ml NEB [id number] [facility] Last Admin: 10/19/17 19:00 Dose: 3 ml Brimonidine Tartrate (Alphagan 0.2% Ophth Soln) 1 drop R EYE BID [facility] Last Admin: 10/19/17 21:14 Dose: 1 drop Cyanocobalamin (Vitamin B-12) 1,000 mcg PO DAILY [facility] Last Admin: 10/19/17 09:07 Dose: 1,000 mcg Digoxin (Lanoxin) 0.125 mg PO DAILY [facility] Last Admin: 10/19/17 09:08 Dose: 0.125 mg Diphenhydramine HCl (Benadryl) 50 mg PO HSPRN PRN PRN Reason: Insomnia Last Admin: 10/19/17 21:17 Dose: 50 mg Dorzolamide HCl (Trusopt 2% Ophth Soln) 1 drop R EYE BID [facility] Last Admin: 10/19/17 21:14 Dose: 1 drop Ezetimibe (Zetia) 10 mg PO DAILY [facility] Last Admin: 10/19/17 09:08 Dose: 10 mg Furosemide (Lasix) 80 mg PO 0900,1400 [facility] Last Admin: 10/19/17 14:51 Dose: 80 mg Guaifenesin/Dextromethorphan (Robitussin Dm) 15 ml PO Q4H PRN PRN Reason: Cough Dopamine HCl/Dextrose (Dopamine/D5w) 250 mls @ 0 mls/hr IVPB INF PRN; Protocol ; As Directed PRN Reason: HYPOTENSION Latanoprost (Xalatan 0.005% Ophth Soln) 1 drop R EYE QAM [facility] Last Admin: 10/19/17 09:06 Dose: 1 drp Loteprednol Etabonate (Lotemax 0.5% Ophth Suspension) 0 drop L EYE BID [facility] Last Admin: 10/19/17 21:14 Dose: 1 drop Metoprolol Succinate (Toprol Xl) 12.5 mg PO DAILY [facility] Last Admin: 10/19/17 09:09 Dose: 12.5 mg Mometasone Furoate/Formoterol Fumar (Dulera 200 Mcg/5 Mcg Inhaler) 2 puff INH DAILY-RT [facility] Last Admin: 10/19/17 09:01 Dose: 2 puff Nitroglycerin (Nitrostat) 0.4 mg SL Q5MIN PRN PRN Reason: Chest Pain Polyethylene Glycol (Miralax) 17 gm PO DAILYPRN PRN PRN Reason: Constipation Last Admin: 10/16/17 08:42 Dose: 17 gm Potassium Chloride (Klor-Con 10) 10 meq PO BID-[facility] Last Admin: 10/19/17 16:37 Dose: 10 meq Prednisone (Prednisone) 10 mg PO QAM-[facility] Rosuvastatin Calcium (Crestor) 40 mg PO DAILY [facility] Last Admin: 10/19/17 09:08 Dose: 40 mg Senna (Senokot) 2 tab PO HSPRN PRN PRN Reason: Constipation Last Admin: 10/16/17 08:42 Dose: 2 tab Sodium Chloride (Flush - Normal Saline) 10 ml IVF Q12HR [facility] Last Admin: 10/19/17 21:15 Dose: 10 ml Sodium Chloride (Flush - Normal Saline) 10 ml IVF PRN PRN PRN Reason: Saline Flush Last Admin: 10/14/17 06:02 Dose: 10 ml Tamsulosin HCl (Flomax) 0.4 mg PO HS [facility] Last Admin: 10/19/17 21:16 Dose: 0.4 mg Tramadol HCl (Ultram) 50 mg PO Q6H PRN PRN Reason: Moderate Pain (4-6) Last Admin: 10/19/17 21:18 Dose: 50 mg
[2017-10-20 05:04] LABS: Anion Gap 10 mmol/L (10-20); BUN (Urea Nitrogen) 26 mg/dL (8.4-25.7); Calc. Creatinine Clearance 0 mL/min (70-130); Calcium 8.9 mg/dL (7.8-10.44); Carbon Dioxide 33 mmol/L (23-31); Chloride 99 mmol/L (98-107); Estimated GFR-MDRD 76; Glucose 111 mg/dL (83-110); Sodium 138 mmol/L (136-145)
[2017-10-20] MEDS: Mometasone/Formoterol 120 PUFF INHALER INH SCH (07:19)
[2017-10-20] MEDS: predniSONE 5 MG TAB PO SCH (09:06)
[2017-10-20] MEDS: Rosuvastatin 20 MG TAB PO SCH (09:07)
[2017-10-20] MEDS: Cyanocobalamin (Vitamin B-12) 1,000 MCG TAB PO SCH (09:07)
[2017-10-20] MEDS: Ezetimibe 10 MG TAB PO SCH (09:07)
[2017-10-20] MEDS: Acetaminophen 325 MG TAB PO SCH ×3 (09:07→21:55)
[2017-10-20] MEDS: Furosemide 80 MG TAB PO SCH ×2 (09:07→14:49)
[2017-10-20] MEDS: Digoxin 0.125 MG TAB PO SCH (09:08)
[2017-10-20] MEDS: Potassium Chloride 10 MEQ TAB PO SCH ×2 (09:08→17:00)
[2017-10-20] MEDS: Brimonidine Tartrate 0.2% Ophth Soln 5 ml Bottle R EYE SCH (09:09)
[2017-10-20] MEDS: Latanoprost 0.005% Ophth Soln 2.5 ml Bottle R EYE SCH ×2 (09:09→21:54)
[2017-10-20] MEDS: Loteprednol Etabonate 0.5% Ophth Suspension 5 ml Bottle L EYE SCH (09:09)
[2017-10-20] MEDS: Dorzolamide HCl 2% Ophth Soln 10 ml Bottle R EYE SCH ×2 (09:09→21:54)
[2017-10-20] MEDS: traMADol HCl 50 MG TAB PO PRN ×2 (10:57→23:25)
[2017-10-20] MEDS ORDERED: Artificial Tear Sol 15 ML BOT EA EYE PRN (11:17)
--- NOTE | 2017-10-20 12:15 | PRG ---
DATE OF SERVICE: 10/20/2017 SERVICE: Pulmonary Medicine. INTERVAL HISTORY: The patient is doing fairly well from a respiratory standpoint. He is on 1 liter nasal cannula. He denies any shortness of breath and he is eating comfortably. He is working with p hysical therapy to the best of his ability, but his mobility is actually limited by severe hip pain a nd back pain. He is requesting to see a pain management doctor in the inpatient setting if possible. Additionally, lidocaine patch previously provided him with significant relief. This was discontinu ed yesterday and I am not quite certain why it fell off of the medical record. Either way, we are go ing to restart it today unless somebody has objection. PHYSICAL EXAMINATION: VITAL SIGNS: Afebrile, pulse 84, blood pressure 135/50, respirations 16, saturation 100% on 2 liters nasal cannula. GENERAL: Patient is awake, alert, no apparent distress. LUNGS: Decent air entry. He has got a slightly prolonged expiratory phase. No rhonchi or crackles are present today. HEART: Normal rate, regular. ABDOMEN: Soft, nontender, and nondistended. Bowel sounds are positive. MUSCULOSKELETAL: No cyanosis or clubbing. No pitting in the bilateral lower extremities. NEUROLOGIC: Grossly nonfocal. LABORATORY DATA: BUN 26, bicarb 33. Basic metabolic profile is otherwise unremarkable. Creatinine 0.96. Influenza and blood cultures x2 are unremarkable. ASSESSMENT: 1. Acute hypoxic respiratory failure, resolving. 2. Atrial fibrillation with rapid ventricular rate, currently under good control. 3. Acute on chronic systolic heart failure. 4. Left-sided pleural effusion. 5. Obstructive sleep apnea. 6. Chronic obstructive pulmonary disease without current exacerbation. DISCUSSION AND PLAN: The patient is stable for transition to the telemetry unit. He will need a rep eat chest x-ray in 2 to 4 weeks in the outpatient setting to verify the effusion is getting better. We will get the Lidoderm patch started back. On Saturday, I think it would be reasonable to expedite h is outpatient pain workup, so that we can get him as mobile and function as possible as he has had a significant decline in function associated with his discomfort over the last month and half.
--- NOTE | 2017-10-20 21:33 | PDOC.PN ---
- Subjective Encounter Start Date: 10/20/17 Encounter Start Time: 16:00 Patient seen and examined. No new complaints. No overnight events - Objective MAR Reviewed: Yes Vital Signs & Weight: Vital Signs (12 hours) Temp Pulse Resp Pulse Ox 10/20/17 18:33 98 10/20/17 18:32 98 10/20/17 15:43 97.9 F 10/20/17 14:14 79 12 10/20/17 12:00 98.0 F Weight Weight 208 lb 8.917 oz Most Recent Monitor Data Heart Rate from ECG 100 NIBP 102/61 NIBP BP-Mean 66 Respiration from ECG 18 SpO2 92 I&O: 10/19/17 10/20/17 10/21/17 06:59 06:59 06:59 Intake Total 1620 2110 550 Output Total 1865 1590 420 Balance -245 520 130 Result Diagrams: 10/21/17 03:50 10/21/17 03:50 EKG Reviewed by me: Yes (Tele Afib) Phys Exam - Physical Examination Constitutional: NAD Respiratory: no wheezing, no rhonchi Dec AE at bases Cardiovascular: no rub, irregular Gastrointestinal: soft, non-tender, positive bowel sounds Musculoskeletal: no edema Neurological: non-focal, moves all 4 limbs Dx/Plan - Plan DVT proph w/SCDs IMPRESSION: 1. Afib with RVR 2. Chronic systolic HF s/p AICD 3. Pericardial effusion s/p Pericardial window 4. CAD s/p stent & OR 5. HTN/HLD/COPD/HARMONY on CPAP/Chronic back pain/COPD/BPH PLAN: * Change Lasix to daily due to contraction alkalosis * Await tele bed * Cont steroid taper * AM labs * Cont current meds as below * Cont to monitor * Cardio/CT/Critical care following. Review of Systems - Review of Systems Respiratory: negative: Cough, Dry, Shortness of Breath, Hemoptysis, SOB with Excertion, Pleuritic Pain, Sputum, Wheezing Cardiovascular: negative: chest pain, palpitations, orthopnea, paroxysmal nocturnal dyspnea, edema, light headedness - Medications/Allergies Allergies/Adverse Reactions: Allergies Allergy/AdvReac Type Severity Reaction Status Date / Time No Known Allergies Allergy Verified 06/15/17 06:23 Medications: Current Medications Acetaminophen (Tylenol) 650 mg PO Q4H PRN PRN Reason: Headache/Fever or Pain Last Admin: 01/28/18 10:42 Dose: 650 mg Acetaminophen (Tylenol) 1,000 mg PO HSPRN PRN PRN Reason: Insomnia Last Admin: 10/19/17 21:16 Dose: 1,000 mg Acetaminophen (Tylenol) 650 mg PO TID [facility] Last Admin: 10/20/17 14:50 Dose: Not Given Acetaminophen/Codeine Phosphate (Tylenol #3) 1 tab PO Q4H PRN PRN Reason: Mild Pain (1-3) Acetaminophen/Codeine Phosphate (Tylenol #3) 2 tab PO Q4H PRN PRN Reason: Moderate Pain (4-6) Albuterol/Ipratropium (Duoneb) 3 ml NEB [id number] [facility] Last Admin: 10/20/17 18:32 Dose: 3 ml Artificial Tears (Tears Renewed 15ml Bottle) 0 drop EA EYE Q2H PRN PRN Reason: DRY IRRITATED EYES Brimonidine Tartrate (Alphagan 0.2% Ophth Soln) 1 drop R EYE DAILY [facility] Cyanocobalamin (Vitamin B-12) 1,000 mcg PO DAILY [facility] Last Admin: 10/20/17 09:07 Dose: 1,000 mcg Digoxin (Lanoxin) 0.125 mg PO DAILY [facility] Last Admin: 10/20/17 09:08 Dose: 0.125 mg Diphenhydramine HCl (Benadryl) 50 mg PO HSPRN PRN PRN Reason: Insomnia Last Admin: 10/19/17 21:17 Dose: 50 mg Dorzolamide HCl (Trusopt 2% Ophth Soln) 1 drop R EYE BID [facility] Last Admin: 10/20/17 09:09 Dose: 1 drop Ezetimibe (Zetia) 10 mg PO DAILY [facility] Last Admin: 10/20/17 09:07 Dose: 10 mg Furosemide (Lasix) 80 mg PO DAILY-AC [facility] Guaifenesin/Dextromethorphan (Robitussin Dm) 15 ml PO Q4H PRN PRN Reason: Cough Dopamine HCl/Dextrose (Dopamine/D5w) 250 mls @ 0 mls/hr IVPB INF PRN; Protocol ; As Directed PRN Reason: HYPOTENSION Latanoprost (Xalatan 0.005% Ophth Soln) 1 drop R EYE BID [facility] Lidocaine (Lidoderm 5% Patch) 1 patch TD DAILY [facility] Loteprednol Etabonate (Lotemax 0.5% Ophth Suspension) 0 drop L EYE QAM [facility] Metoprolol Succinate (Toprol Xl) 12.5 mg PO DAILY [facility] Last Admin: 10/20/17 09:06 Dose: 12.5 mg Miscellaneous Medication (Lidocaine Patch Removal) 1 each TOP QPM [facility] Mometasone Furoate/Formoterol Fumar (Dulera 200 Mcg/5 Mcg Inhaler) 2 puff INH DAILY-RT [facility] Last Admin: 10/20/17 07:19 Dose: 2 puff Nitroglycerin (Nitrostat) 0.4 mg SL Q5MIN PRN PRN Reason: Chest Pain Penicillin V Potassium (Penicillin V Potassium) 250 mg PO BID [facility] Polyethylene Glycol (Miralax) 17 gm PO DAILYPRN PRN PRN Reason: Constipation Last Admin: 10/16/17 08:42 Dose: 17 gm Potassium Chloride (Klor-Con 10) 10 meq PO BID-[facility] Last Admin: 10/20/17 17:00 Dose: 10 meq Prednisone (Prednisone) 10 mg PO QAM-[facility] Last Admin: 10/20/17 09:06 Dose: 10 mg Rosuvastatin Calcium (Crestor) 40 mg PO DAILY [facility] Last Admin: 10/20/17 09:07 Dose: 40 mg Senna (Senokot) 2 tab PO HSPRN PRN PRN Reason: Constipation Last Admin: 10/16/17 08:42 Dose: 2 tab Sodium Chloride (Flush - Normal Saline) 10 ml IVF Q12HR [facility] Last Admin: 10/20/17 09:10 Dose: 10 ml Sodium Chloride (Flush - Normal Saline) 10 ml IVF PRN PRN PRN Reason: Saline Flush Last Admin: 10/14/17 06:02 Dose: 10 ml Tamsulosin HCl (Flomax) 0.4 mg PO HS [facility] Last Admin: 10/19/17 21:16 Dose: 0.4 mg Tramadol HCl (Ultram) 50 mg PO Q6H PRN PRN Reason: Moderate Pain (4-6) Last Admin: 10/20/17 10:57 Dose: 50 mg
[2017-10-20] MEDS: diphenhydrAMINE 25 MG CAP PO PRN (21:50)
[2017-10-20] MEDS: Acetaminophen 500 MG TAB PO PRN (21:51)
[2017-10-20] MEDS: Penicillin V Potassium 250 MG TAB PO SCH (21:51)
[2017-10-20] MEDS: Tamsulosin HCl 0.4 MG CAP PO SCH (21:51)
[2017-10-21 04:32] LABS: Hemoglobin 13.3 g/dL (14.0-18.0); Platelet Count 113 thou/uL (130-400)
[2017-10-21 04:47] LABS: Anion Gap 9 mmol/L (10-20); BUN (Urea Nitrogen) 30 mg/dL (8.4-25.7); Calc. Creatinine Clearance 73 mL/min (70-130); Calcium 8.7 mg/dL (7.8-10.44); Carbon Dioxide 32 mmol/L (23-31); Chloride 99 mmol/L (98-107); Estimated GFR-MDRD 65; Glucose 108 mg/dL (83-110); Magnesium 2.1 mg/dL (1.6-2.6); Potassium 4.1 mmol/L (3.5-5.1); Sodium 136 mmol/L (136-145)
[2017-10-21 05:42] VITALS: BMI 28.1
[2017-10-21] MEDS: Acetaminophen 325 MG TAB PO SCH ×3 (08:53→21:39)
[2017-10-21] MEDS: predniSONE 5 MG TAB PO SCH (08:53)
[2017-10-21] MEDS: Potassium Chloride 10 MEQ TAB PO SCH ×2 (08:53→17:13)
[2017-10-21] MEDS: Furosemide 80 MG TAB PO SCH (08:53)
[2017-10-21] MEDS: Cyanocobalamin (Vitamin B-12) 1,000 MCG TAB PO SCH (08:54)
[2017-10-21] MEDS: Digoxin 0.125 MG TAB PO SCH (08:54)
[2017-10-21] MEDS: Rosuvastatin 20 MG TAB PO SCH (08:55)
[2017-10-21] MEDS: Ezetimibe 10 MG TAB PO SCH (08:55)
[2017-10-21] MEDS: Penicillin V Potassium 250 MG TAB PO SCH ×2 (08:57→21:39)
[2017-10-21] MEDS: Brimonidine Tartrate 0.2% Ophth Soln 5 ml Bottle R EYE SCH (08:59)
[2017-10-21] MEDS: Loteprednol Etabonate 0.5% Ophth Suspension 5 ml Bottle L EYE SCH (09:00)
[2017-10-21] MEDS: Dorzolamide HCl 2% Ophth Soln 10 ml Bottle R EYE SCH ×2 (09:02→21:38)
[2017-10-21] MEDS: Latanoprost 0.005% Ophth Soln 2.5 ml Bottle R EYE SCH ×2 (09:08→21:38)
[2017-10-21] MEDS: Lidocaine 5% Patch TD SCH (09:18)
[2017-10-21] MEDS: Acetaminophen 500 MG TAB PO PRN (09:33)
[2017-10-21] MEDS ORDERED: Polyethylene Glycol 3350 17 GM Packet PO PRN (09:46)
[2017-10-21] MEDS: Senokot S 8.6-50 MG TAB PO SCH ×2 (12:20→21:39)
[2017-10-21] MEDS ORDERED: Acetaminophen 325 MG TAB PO PRN (12:41)
--- NOTE | 2017-10-21 12:58 | PRG ---
DATE OF SERVICE: 10/21/2017 SERVICE: Pulmonary Medicine. INTERVAL HISTORY: The patient is doing fine from a cardiovascular and respiratory standpoint. He re theresa fairly weak and debilitated. He has no specific complaints this morning. I gently woke him up from sleep. I found him very comfortable. He has no specific complaints currently. There were no reported overnight events. PHYSICAL EXAMINATION: VITAL SIGNS: Afebrile, pulse 82, blood pressure 121/66, respirations 10, saturation 100% on 2 liters nasal cannula. GENERAL: Patient is awake, alert, no apparent distress. LUNGS: Decent air entry. There is slightly prolonged expiratory phase, but I do not hear any wheezi ng or crackles today. Rhonchi are present, but clear with cough. HEART: Normal rate, regular. ABDOMEN: Soft, nontender, nondistended. Bowel sounds positive. MUSCULOSKELETAL: No cyanosis or clubbing. There is no pitting in the bilateral lower extremities. NEUROLOGIC: Grossly nonfocal. LABORATORY DATA: Hemoglobin 13.3, platelets 113. Basic metabolic profile is roughly stable with a c reatinine of 1.1. Magnesium 2.1. Blood cultures x2 and Influenza A and B are unremarkable. ASSESSMENT: 1. Acute hypoxic respiratory failure, resolving. 2. Atrial fibrillation with rapid ventricular response, currently rate controlled. 3. Acute on chronic systolic heart failure. 4. Left-sided pleural effusion. 5. Obstructive sleep apnea. 6. Chronic obstructive pulmonary disease without current exacerbation. PLAN: We will continue focus on efforts getting the patient as mobile as possible. That being said, this requires us to get his pain under control. I think he is stable for transition out of the ICU to the telemetry unit. The patient is currently bedbound and has been like this for the past 4-6 wee ks. Prior to that, he was extraordinarily vibrant and strong. It will be best to have a plan in [facility] to control his orthopedic pain issues, and stabilize his spine. The sooner this can occur the bet ter as the patient is having significant decline in function as time goes by. He will ultimately nee d a repeat chest x-ray in 2-4 weeks in the outpatient setting to verify the effusion on the left has gone away. If it has not, additional procedures may be indicated.
[2017-10-21] MEDS: Mometasone/Formoterol 120 PUFF INHALER INH SCH (15:32)
[2017-10-21] MEDS: traMADol HCl 50 MG TAB PO PRN ×2 (16:03→22:30)
--- NOTE | 2017-10-21 16:03 | PDOC.CTH ---
Cardiology Progress Note - Subjective EP progress note Patient continues to feel tired and weak, which is not new. Denies any heart racing, chest pain, or palpitations. No increasing shortness of breath. No new cardiac complaints today. He is resting comfortable and interact appropriately. - Objective Vital Signs Temp Pulse Pulse Resp BP Pulse Ox 10/21/17 13:30 82 102/44 L 10/21/17 08:54 82 10/21/17 08:00 98.0 F 82 14 100 10/21/17 06:44 87 15 Admit Weight 221 lb Weight 207 lb 10.807 oz 10/20/17 10/21/17 10/22/17 06:59 06:59 06:59 Intake Total 2110 1150 320 Output Total 1590 1350 130 Balance 520 -200 190 - Physical Examination General/Neuro: alert & oriented x3, NAD Neck: no JVD present Lungs: unlabored respirations Heart: PMI normal Other PE findings: chronic bilateral lymphedema - Telemetry Telemetry Rhythm: AF - Labs Result Diagrams: 10/21/17 03:50 10/21/17 03:50 - Assessment/Plan 1. Persistent atrial arrhythmias- continue with current rate control regimen of beta tony and digoxin 2. Systolic heart failure with reduced EF- medically managed by cardiology 3. NSVT- inclusion of ICD, continue beta tony therapy 4. Pericardial effusion- drain placed by CV surgery last week. Continues to drain serous fluid, not hemorrhagic. No hemodynamic instability or finding suggestive of tamponade. 5. ICD implant- site healing. bruising noted. minor resolving hematoma 6. Recommend anticoagulation for atrial arrhythmias to resume as soon as surgically cleared/appropriate.
--- NOTE | 2017-10-21 17:20 | PDOC.PN ---
- Subjective Encounter Start Date: 10/21/17 Encounter Start Time: 10:30 Patient seen and examined. No new complaints. No overnight events. Feels gen weak. - Objective MAR Reviewed: Yes Vital Signs & Weight: Vital Signs (12 hours) Temp Pulse Pulse Resp BP Pulse Ox 10/21/17 16:00 98.7 F 10/21/17 13:30 82 102/44 L 10/21/17 08:54 82 10/21/17 08:00 98.0 F 82 14 100 10/21/17 06:44 87 15 Weight Admit Weight 221 lb Weight 207 lb 10.807 oz Most Recent Monitor Data Heart Rate from ECG 82 NIBP 113/58 NIBP BP-Mean 68 Respiration from ECG 2 SpO2 94 I&O: 10/20/17 10/21/17 10/22/17 06:59 06:59 06:59 Intake Total 2110 1150 570 Output Total 1590 1350 170 Balance 520 -200 400 Result Diagrams: 10/21/17 03:50 10/21/17 03:50 EKG Reviewed by me: Yes (Tele Afib) Phys Exam - Physical Examination Constitutional: NAD Respiratory: no wheezing, no rhonchi improving hematoma over the ICD site Cardiovascular: no rub, irregular Gastrointestinal: soft, non-tender, positive bowel sounds Neurological: moves all 4 limbs Dx/Plan - Plan DVT proph w/SCDs IMPRESSION: 1. Afib with RVR - rate controlled 2. Chronic systolic HF s/p AICD 3. Pericardial effusion s/p Pericardial window 4. CAD s/p stent & CO 5. HTN/HLD/COPD/HARMONY on CPAP/Chronic back pain/COPD/BPH PLAN: * Cont diuresis * Anticoag on hold * Await tele bed * Cont steroid * AM labs * Cont current meds as below * Cont to monitor * Cardio/CT/Critical care following. Review of Systems - Review of Systems Cardiovascular: negative: chest pain, palpitations, orthopnea, paroxysmal nocturnal dyspnea, edema, light headedness Gastrointestinal: negative: Nausea, Vomiting, Abdominal Pain, Diarrhea, Constipation, Melena, Hematochezia - Medications/Allergies Allergies/Adverse Reactions: Allergies Allergy/AdvReac Type Severity Reaction Status Date / Time No Known Allergies Allergy Verified 06/15/17 06:23 Medications: Current Medications Acetaminophen (Tylenol) 650 mg PO TID [facility] Last Admin: 10/21/17 15:08 Dose: 650 mg Acetaminophen (Tylenol) 325 mg PO Q6H PRN PRN Reason: Headache/Fever or Pain Acetaminophen/Codeine Phosphate (Tylenol #3) 1 tab PO Q4H PRN PRN Reason: Mild Pain (1-3) Albuterol/Ipratropium (Duoneb) 3 ml NEB [id number] [facility] Last Admin: 10/21/17 15:33 Dose: Not Given Artificial Tears (Tears Renewed 15ml Bottle) 0 drop EA EYE Q2H PRN PRN Reason: DRY IRRITATED EYES Brimonidine Tartrate (Alphagan 0.2% Ophth Soln) 1 drop R EYE DAILY [facility] Last Admin: 10/21/17 08:59 Dose: 1 drp Cyanocobalamin (Vitamin B-12) 1,000 mcg PO DAILY [facility] Last Admin: 10/21/17 08:54 Dose: 1,000 mcg Digoxin (Lanoxin) 0.125 mg PO DAILY [facility] Last Admin: 10/21/17 08:54 Dose: 0.125 mg Dorzolamide HCl (Trusopt 2% Ophth Soln) 1 drop R EYE BID [facility] Last Admin: 10/21/17 09:02 Dose: 1 drop Ezetimibe (Zetia) 10 mg PO DAILY [facility] Last Admin: 10/21/17 08:55 Dose: 10 mg Furosemide (Lasix) 80 mg PO DAILY-AC [facility] Last Admin: 10/21/17 08:53 Dose: 80 mg Guaifenesin/Dextromethorphan (Robitussin Dm) 15 ml PO Q4H PRN PRN Reason: Cough Dopamine HCl/Dextrose (Dopamine/D5w) 250 mls @ 0 mls/hr IVPB INF PRN; Protocol ; As Directed PRN Reason: HYPOTENSION Latanoprost (Xalatan 0.005% Ophth Soln) 1 drop R EYE BID [facility] Last Admin: 10/21/17 09:08 Dose: 1 drp Lidocaine (Lidoderm 5% Patch) 1 patch TD DAILY [facility] Last Admin: 10/21/17 09:18 Dose: 1 patch Loteprednol Etabonate (Lotemax 0.5% Ophth Suspension) 0 drop L EYE QAM [facility] Last Admin: 10/21/17 09:00 Dose: 1 drop Metoprolol Succinate (Toprol Xl) 12.5 mg PO DAILY [facility] Last Admin: 10/21/17 08:55 Dose: 12.5 mg Miscellaneous Medication (Lidocaine Patch Removal) 1 each TOP QPM [facility] Mometasone Furoate/Formoterol Fumar (Dulera 200 Mcg/5 Mcg Inhaler) 2 puff INH DAILY-RT [facility] Last Admin: 10/21/17 15:32 Dose: Not Given Nitroglycerin (Nitrostat) 0.4 mg SL Q5MIN PRN PRN Reason: Chest Pain Penicillin V Potassium (Penicillin V Potassium) 250 mg PO BID [facility] Last Admin: 10/21/17 08:57 Dose: 250 mg Polyethylene Glycol (Miralax) 17 gm PO DAILYPRN PRN PRN Reason: Constipation Last Admin: 10/16/17 08:42 Dose: 17 gm Polyethylene Glycol (Miralax) 17 gm PO DAILY [facility] Potassium Chloride (Klor-Con 10) 10 meq PO BID-[facility] Last Admin: 10/21/17 17:13 Dose: 10 meq Prednisone (Prednisone) 10 mg PO QA-[facility] Last Admin: 10/21/17 08:53 Dose: 10 mg Rosuvastatin Calcium (Crestor) 40 mg PO DAILY [facility] Last Admin: 10/21/17 08:55 Dose: 40 mg Senna (Senokot) 2 tab PO HSPRN PRN PRN Reason: Constipation Last Admin: 10/16/17 08:42 Dose: 2 tab Senna/Docusate Sodium (Senokot S) 1 tab PO BID [facility] Last Admin: 10/21/17 12:20 Dose: 1 tab Sodium Chloride (Flush - Normal Saline) 10 ml IVF Q12HR [facility] Last Admin: 10/21/17 09:09 Dose: 10 ml Sodium Chloride (Flush - Normal Saline) 10 ml IVF PRN PRN PRN Reason: Saline Flush Last Admin: 10/14/17 06:02 Dose: 10 ml Tamsulosin HCl (Flomax) 0.4 mg PO [facility] Last Admin: 10/20/17 21:51 Dose: 0.4 mg Tramadol HCl (Ultram) 50 mg PO Q6H PRN PRN Reason: Moderate Pain (4-6) Last Admin: 10/21/17 16:03 Dose: 50 mg
[2017-10-21] MEDS ORDERED: traMADol HCl 50 MG TAB PO PRN (18:47)
[2017-10-21] MEDS: Lidocaine Patch Removal TOP SCH (21:39)
[2017-10-21] MEDS: Tamsulosin HCl 0.4 MG CAP PO SCH (21:39)
[2017-10-21] MEDS: Gabapentin 100 MG CAP PO SCH (21:39)
[2017-10-22 05:38] LABS: #Lymphocytes 0.6 thou/uL (1.20-3.40); #Monocytes 0.5 thou/uL (0.11-0.59); %Basophils 0.1 % (0.0-1.0); %Eosinophils 0.4 % (0.0-10.0); %Lymphocytes 9.7 % (21.0-51.0); %Monocytes 8.6 % (0.0-10.0); %Neutrophils 81.2 % (42.0-75.0); Hemoglobin 13.6 g/dL (14.0-18.0); Mean Corpuscular HGB CONC 32.1 g/dL (32.0-36.0); Mean Corpuscular Hemoglobin 32.4 pg (27.0-31.0); Mean Platelet Volume 8.8 fL (7.4-10.4); Platelet Count 119 thou/uL (130-400); RBC Distribution Width 14.5 % (11.5-14.5); Red Blood Cell (RBC) Count 4.21 mill/uL (4.70-6.10); White Blood Cell (WBC) Count 6.1 thou/uL (4.8-10.8)
[2017-10-22 05:55] LABS: Anion Gap 8 mmol/L (10-20); BUN (Urea Nitrogen) 29 mg/dL (8.4-25.7); Calc. Creatinine Clearance 80 mL/min (70-130); Calcium 8.8 mg/dL (7.8-10.44); Carbon Dioxide 34 mmol/L (23-31); Chloride 98 mmol/L (98-107); Estimated GFR-MDRD 72; Glucose 95 mg/dL (83-110); Sodium 136 mmol/L (136-145)
[2017-10-22] MEDS: Mometasone/Formoterol 120 PUFF INHALER INH SCH (08:00)
[2017-10-22] MEDS: Polyethylene Glycol 3350 17 GM Packet PO SCH (08:24)
[2017-10-22] MEDS: predniSONE 5 MG TAB PO SCH (08:25)
[2017-10-22] MEDS: Acetaminophen 325 MG TAB PO SCH ×3 (08:25→21:20)
[2017-10-22] MEDS: Rosuvastatin 20 MG TAB PO SCH (08:26)
[2017-10-22] MEDS: Gabapentin 100 MG CAP PO SCH ×2 (08:26→21:21)
[2017-10-22] MEDS: Potassium Chloride 10 MEQ TAB PO SCH ×2 (08:26→17:46)
[2017-10-22] MEDS: Digoxin 0.125 MG TAB PO SCH (08:26)
[2017-10-22] MEDS: Ezetimibe 10 MG TAB PO SCH (08:26)
[2017-10-22] MEDS: Furosemide 80 MG TAB PO SCH (08:26)
[2017-10-22] MEDS: Penicillin V Potassium 250 MG TAB PO SCH ×2 (08:27→21:22)
[2017-10-22] MEDS: Senokot S 8.6-50 MG TAB PO SCH ×2 (08:27→21:21)
[2017-10-22] MEDS: Cyanocobalamin (Vitamin B-12) 1,000 MCG TAB PO SCH (08:27)
[2017-10-22] MEDS: Loteprednol Etabonate 0.5% Ophth Suspension 5 ml Bottle L EYE SCH (08:28)
[2017-10-22] MEDS: Latanoprost 0.005% Ophth Soln 2.5 ml Bottle R EYE SCH ×2 (08:28→21:23)
[2017-10-22] MEDS: Dorzolamide HCl 2% Ophth Soln 10 ml Bottle R EYE SCH ×2 (08:30→21:25)
[2017-10-22] MEDS: Brimonidine Tartrate 0.2% Ophth Soln 5 ml Bottle R EYE SCH (08:30)
[2017-10-22] MEDS: traMADol HCl 50 MG TAB PO PRN ×2 (10:46→21:21)
[2017-10-22] MEDS: Lidocaine 5% Patch TD SCH (10:51)
--- NOTE | 2017-10-22 12:20 | PRG ---
DATE OF SERVICE: 10/22/2017 SERVICE: Pulmonary Medicine. INTERVAL HISTORY: The patient is doing fine from a respiratory standpoint. He denies any shortness of breath or chest discomfort. He is not having any nausea or vomiting. He is tolerating some p.o. Otherwise, there were no overnight events. PHYSICAL EXAMINATION: VITAL SIGNS: Afebrile, pulse 75, blood pressure 117/74, respirations 18, saturation 100% on 2 liters nasal cannula. GENERAL: Patient awake, alert, in no apparent distress. LUNGS: Excellent air entry. There is no prolonged expiratory phase. Some rhonchi clear with cough. No wheezing or crackles are appreciated. HEART: Normal rate, regular. ABDOMEN: Soft, nontender, nondistended. Bowel sounds are positive. MUSCULOSKELETAL: No cyanosis or clubbing. There is no pitting in the bilateral lower extremities. NEUROLOGIC: Grossly nonfocal. LABORATORY DATA: WBC 6.1, hemoglobin 13.6, platelets 119,000 and roughly stable. Basic metabolic pr ofile is completely unremarkable/stable with BUN of 29 and a creatinine of 1.0. Bicarbonate 34 and g ently up trending. Blood cultures x2 are unremarkable, and influenza A and B are negative. ASSESSMENT: 1. Acute hypoxic respiratory failure. 2. Atrial fibrillation. 3. Acute on chronic systolic heart failure. 4. Left-sided pleural effusion. 5. Obstructive sleep apnea. 6. Chronic obstructive pulmonary disease without current exacerbation. 7. Orthopedic issues including spine and hip issues that prevent him from mobilizing DISCUSSION AND PLAN: At this point, the patient remains stable for transition out of the ICU to the telemetry unit. Pulmonary will continue following while he remains in this location.
--- NOTE | 2017-10-22 14:32 | PDOC.CTH ---
<Rosemarie Villarreal - Last Filed: 10/22/17 15:41> Cardiology Progress Note - Subjective EP progress note: Patient resting comfortably in bed. He is feeling quite encouraged today as his back pain is better controlled and he was able to get into a sitting position with less pain than expected. He is motivated to keep progressing with mobility. He denies heart racing, palpitations, chest pain, dizziness, or increasing shortness of breath. Overall he feels he is improving and does not have any complaints or concerns today - Objective Vital Signs Temp Pulse Pulse Pulse Resp BP BP 10/22/17 13:38 70 18 10/22/17 11:41 76 73 138/74 113/65 10/22/17 08:26 75 10/22/17 08:01 10/22/17 08:00 98.7 F 75 18 10/22/17 07:58 72 17 10/22/17 04:00 98.6 F Pulse Ox Pulse Ox Pulse Ox 10/22/17 13:38 99 10/22/17 11:41 100 100 10/22/17 08:26 10/22/17 08:01 99 10/22/17 08:00 100 10/22/17 07:58 99 10/22/17 04:00 Admit Weight 221 lb Weight 207 lb 10.807 oz 10/21/17 10/22/17 10/23/17 06:59 06:59 06:59 Intake Total 1150 810 Output Total 1350 890 Balance -200 -80 - Physical Examination General/Neuro: alert & oriented x3, NAD Neck: no JVD present Lungs: unlabored respirations Abdomen: NT/ND, soft, other: (pericardial drain has been removed) - Telemetry Telemetry Rhythm: AF - Labs Result Diagrams: 10/22/17 05:00 10/22/17 05:00 Troponin/CKMB CK-MB (CK-2) 2.1 ng/mL (0-6.6) 10/09/17 12:26 Troponin I 0.116 ng/mL (< 0.028) H 10/15/17 05:12 - Assessment/Plan 1. Atrial arrhythmias- ventricular response well controlled with digoxin and beta tony therapy. 2. ICD- implant site swelling greatly reduced. Bruising unchanged. Edges well approximated. 3. Pericardial Effusion- drain removed yesterday. Request routine follow up at [facility] clinic on [address] in 1-2 weeks upon discharge. <AbelardoScout gaspar - Last Filed: 10/22/17 18:28> Cardiology Progress Note - Objective Vital Signs Temp Pulse Pulse Pulse Resp BP BP 10/22/17 18:10 79 18 10/22/17 16:00 98.4 F 10/22/17 13:38 70 18 10/22/17 11:41 76 73 138/74 113/65 10/22/17 08:26 75 10/22/17 08:01 10/22/17 08:00 98.6 F 75 18 10/22/17 07:58 72 17 Pulse Ox Pulse Ox Pulse Ox 10/22/17 18:10 100 10/22/17 16:00 10/22/17 13:38 99 10/22/17 11:41 100 100 10/22/17 08:26 10/22/17 08:01 99 10/22/17 08:00 100 10/22/17 07:58 99 Admit Weight 221 lb Weight 207 lb 10.807 oz 10/21/17 10/22/17 10/23/17 06:59 06:59 06:59 Intake Total 1150 810 400 Output Total 1350 890 670 Balance -200 -80 -270 - Labs Result Diagrams: 10/22/17 05:00 10/22/17 05:00 Troponin/CKMB CK-MB (CK-2) 2.1 ng/mL (0-6.6) 10/09/17 12:26 Troponin I 0.116 ng/mL (< 0.028) H 10/15/17 05:12 Attending Addendum - Attending Addendum I agree with the History, Examination, Assessment and Plan documented above with any addition or exceptions noted below. 1. Persisting Atrial fibrillation - ventricular response well controlled with digoxin and beta tony therapy. 2. Dual chamber ICD- implant site swelling greatly reduced. Bruising unchanged. Edges well approximated. Adequate fx. 3. Serous preexisting Pericardial Effusion - drain removed yesterday. Consider resuming OAC once feasible from surgical standpoint.
--- NOTE | 2017-10-22 20:59 | PDOC.PN ---
- Subjective Encounter Start Date: 10/22/17 Encounter Start Time: 16:00 Patient seen and examined. No new complaints. No overnight events. Back pain better with Gabapentin. - Objective MAR Reviewed: Yes Vital Signs & Weight: Vital Signs (12 hours) Temp Pulse Pulse Pulse Resp BP BP 10/22/17 20:43 97.4 F L 78 20 10/22/17 18:48 98.1 F 84 20 10/22/17 18:10 79 18 10/22/17 16:00 98.4 F 10/22/17 13:38 70 18 10/22/17 11:41 76 73 138/74 113/65 BP Pulse Ox Pulse Ox Pulse Ox 10/22/17 20:43 138/73 99 10/22/17 18:48 115/56 L 99 10/22/17 18:10 100 10/22/17 16:00 10/22/17 13:38 99 10/22/17 11:41 100 100 Weight Admit Weight 221 lb Weight 207 lb 10.807 oz Most Recent Monitor Data Heart Rate from ECG 88 NIBP 119/65 NIBP BP-Mean 68 Respiration from ECG 14 SpO2 100 I&O: 10/21/17 10/22/17 10/23/17 06:59 06:59 06:59 Intake Total 1150 810 400 Output Total 1350 890 670 Balance -200 -80 -270 Result Diagrams: 10/22/17 05:00 10/22/17 05:00 EKG Reviewed by me: Yes (Tele Afib) Phys Exam - Physical Examination Constitutional: NAD Respiratory: no wheezing, no rhonchi Cardiovascular: no rub, irregular Gastrointestinal: soft, non-tender, positive bowel sounds Musculoskeletal: no edema Neurological: moves all 4 limbs Dx/Plan - Plan DVT proph w/SCDs IMPRESSION: 1. Afib with RVR - rate controlled on Toprol XL and Digoxin. s/p AICD (placed this admission) - Anticoag on hold due to Pericardial window 2. Acute on chronic back pain - Pain mngt following - Improved with Tylenol ATC , Neurontin and Lidocaine patch 3. Pericardial effusion s/p Pericardial window (this admission) 4. CAD s/p stent & MN 5. HTN/HLD/COPD/HARMONY on CPAP//COPD/BPH Chronic systolic HF s/p AICD PLAN: * Cont diuresis - dose reduced * Await tele bed * AM labs * Cont current meds as below * Cont to monitor * Cardio/CT/Critical care following. * Cont PT Review of Systems - Review of Systems Respiratory: negative: Cough, Dry, Shortness of Breath, Hemoptysis, SOB with Excertion, Pleuritic Pain, Sputum, Wheezing Cardiovascular: negative: chest pain, palpitations, orthopnea, paroxysmal nocturnal dyspnea, edema, light headedness - Medications/Allergies Allergies/Adverse Reactions: Allergies Allergy/AdvReac Type Severity Reaction Status Date / Time No Known Allergies Allergy Verified 06/15/17 06:23 Medications: Current Medications Acetaminophen (Tylenol) 650 mg PO TID [facility] Last Admin: 10/22/17 15:28 Dose: 650 mg Acetaminophen (Tylenol) 325 mg PO Q6H PRN PRN Reason: Headache/Fever or Pain Acetaminophen/Codeine Phosphate (Tylenol #3) 1 tab PO Q4H PRN PRN Reason: Mild Pain (1-3) Albuterol/Ipratropium (Duoneb) 3 ml NEB [id number] [facility] Last Admin: 10/22/17 18:10 Dose: 3 ml Artificial Tears (Tears Renewed 15ml Bottle) 0 drop EA EYE Q2H PRN PRN Reason: DRY IRRITATED EYES Last Admin: 10/22/17 08:29 Dose: 1 drop Brimonidine Tartrate (Alphagan 0.2% Ophth Soln) 1 drop R EYE DAILY [facility] Last Admin: 10/22/17 08:30 Dose: 1 drp Cyanocobalamin (Vitamin B-12) 1,000 mcg PO DAILY [facility] Last Admin: 10/22/17 08:27 Dose: 1,000 mcg Digoxin (Lanoxin) 0.125 mg PO DAILY [facility] Last Admin: 10/22/17 08:26 Dose: 0.125 mg Dorzolamide HCl (Trusopt 2% Ophth Soln) 1 drop R EYE BID [facility] Last Admin: 10/22/17 08:30 Dose: 1 drop Ezetimibe (Zetia) 10 mg PO DAILY [facility] Last Admin: 10/22/17 08:26 Dose: 10 mg Furosemide (Lasix) 40 mg PO DAILY-AC [facility] Gabapentin (Neurontin) 100 mg PO BID [facility] Stop: 10/23/17 21:01 Last Admin: 10/22/17 08:26 Dose: 100 mg Gabapentin (Neurontin) 100 mg PO TID [facility] Guaifenesin/Dextromethorphan (Robitussin Dm) 15 ml PO Q4H PRN PRN Reason: Cough Dopamine HCl/Dextrose (Dopamine/D5w) 250 mls @ 0 mls/hr IVPB INF PRN; Protocol ; As Directed PRN Reason: HYPOTENSION Latanoprost (Xalatan 0.005% Ophth Soln) 1 drop R EYE BID [facility] Last Admin: 10/22/17 08:28 Dose: 1 drp Lidocaine (Lidoderm 5% Patch) 1 patch TD DAILY [facility] Last Admin: 10/22/17 10:51 Dose: 1 patch Loteprednol Etabonate (Lotemax 0.5% Ophth Suspension) 0 drop L EYE QAM [facility] Last Admin: 10/22/17 08:28 Dose: 1 drop Metoprolol Succinate (Toprol Xl) 12.5 mg PO DAILY [facility] Last Admin: 10/22/17 08:27 Dose: 12.5 mg Miscellaneous Medication (Lidocaine Patch Removal) 1 each TOP QPM [facility] Last Admin: 10/21/17 21:39 Dose: 1 each Mometasone Furoate/Formoterol Fumar (Dulera 200 Mcg/5 Mcg Inhaler) 2 puff INH DAILY-RT [facility] Last Admin: 10/22/17 08:00 Dose: 2 puff Nitroglycerin (Nitrostat) 0.4 mg SL Q5MIN PRN PRN Reason: Chest Pain Penicillin V Potassium (Penicillin V Potassium) 250 mg PO BID [facility] Last Admin: 10/22/17 08:27 Dose: 250 mg Polyethylene Glycol (Miralax) 17 gm PO DAILYPRN PRN PRN Reason: Constipation Last Admin: 10/16/17 08:42 Dose: 17 gm Polyethylene Glycol (Miralax) 17 gm PO DAILY [facility] Last Admin: 10/22/17 08:24 Dose: 17 gm Potassium Chloride (Klor-Con 10) 10 meq PO BID-[facility] Last Admin: 10/22/17 17:46 Dose: 10 meq Prednisone (Prednisone) 10 mg PO QAM-WM [facility] Last Admin: 10/22/17 08:25 Dose: 10 mg Rosuvastatin Calcium (Crestor) 40 mg PO DAILY [facility] Last Admin: 10/22/17 08:26 Dose: 40 mg Senna (Senokot) 2 tab PO HSPRN PRN PRN Reason: Constipation Last Admin: 10/16/17 08:42 Dose: 2 tab Senna/Docusate Sodium (Senokot S) 1 tab PO BID [facility] Last Admin: 10/22/17 08:27 Dose: 1 tab Sodium Chloride (Flush - Normal Saline) 10 ml IVF Q12HR [facility] Last Admin: 10/22/17 08:31 Dose: 10 ml Sodium Chloride (Flush - Normal Saline) 10 ml IVF PRN PRN PRN Reason: Saline Flush Last Admin: 10/14/17 06:02 Dose: 10 ml Tamsulosin HCl (Flomax) 0.4 mg PO HS [facility] Last Admin: 10/21/17 21:39 Dose: 0.4 mg Tramadol HCl (Ultram) 50 mg PO Q6H PRN PRN Reason: Moderate Pain (4-6) Last Admin: 10/22/17 10:46 Dose: 50 mg Tramadol HCl (Ultram) 50 mg PO DAILYPRN PRN PRN Reason: PAIN, PRIOR TO PT
[2017-10-22] MEDS: Tamsulosin HCl 0.4 MG CAP PO SCH (21:21)
[2017-10-22] MEDS: Lidocaine Patch Removal TOP SCH (21:22)
[2017-10-23] MEDS: Acetaminophen/Codeine 30-300mg Tablet PO PRN ×2 (04:09→13:06)
[2017-10-23 05:46] LABS: Platelet Count 129 thou/uL (130-400)
[2017-10-23 06:16] LABS: Anion Gap 9 mmol/L (10-20); BUN (Urea Nitrogen) 27 mg/dL (8.4-25.7); Calc. Creatinine Clearance 99 mL/min (70-130); Calcium 8.7 mg/dL (7.8-10.44); Carbon Dioxide 30 mmol/L (23-31); Chloride 100 mmol/L (98-107); Estimated GFR-MDRD Greater than 90; Glucose 100 mg/dL (83-110); Sodium 135 mmol/L (136-145)
[2017-10-23] MEDS: Mometasone/Formoterol 120 PUFF INHALER INH SCH (06:53)
[2017-10-23] MEDS: traMADol HCl 50 MG TAB PO PRN (07:47)
[2017-10-23] MEDS: Brimonidine Tartrate 0.2% Ophth Soln 5 ml Bottle R EYE SCH (09:26)
[2017-10-23] MEDS: Potassium Chloride 10 MEQ TAB PO SCH ×2 (09:30→16:54)
[2017-10-23] MEDS: Furosemide 40 MG TAB PO SCH (09:30)
[2017-10-23] MEDS: predniSONE 5 MG TAB PO SCH (09:31)
[2017-10-23] MEDS: Dorzolamide HCl 2% Ophth Soln 10 ml Bottle R EYE SCH ×2 (09:46→21:08)
[2017-10-23] MEDS: Acetaminophen 325 MG TAB PO SCH ×3 (09:47→21:08)
[2017-10-23] MEDS: Digoxin 0.125 MG TAB PO SCH (09:48)
[2017-10-23] MEDS: Cyanocobalamin (Vitamin B-12) 1,000 MCG TAB PO SCH (09:48)
[2017-10-23] MEDS: Ezetimibe 10 MG TAB PO SCH (09:48)
[2017-10-23] MEDS: Gabapentin 100 MG CAP PO SCH ×2 (09:49→21:08)
[2017-10-23] MEDS: Lidocaine 5% Patch TD SCH (09:50)
[2017-10-23] MEDS: Latanoprost 0.005% Ophth Soln 2.5 ml Bottle R EYE SCH ×2 (09:50→21:06)
[2017-10-23] MEDS: Loteprednol Etabonate 0.5% Ophth Suspension 5 ml Bottle L EYE SCH (09:51)
[2017-10-23] MEDS: Penicillin V Potassium 250 MG TAB PO SCH ×2 (09:51→21:07)
[2017-10-23] MEDS: Polyethylene Glycol 3350 17 GM Packet PO SCH (09:51)
[2017-10-23] MEDS: Rosuvastatin 20 MG TAB PO SCH (09:51)
[2017-10-23] MEDS: Senokot S 8.6-50 MG TAB PO SCH ×2 (09:52→21:08)
--- NOTE | 2017-10-23 11:01 | PDOC.CTH ---
<Rosemarie Villarreal - Last Filed: 10/23/17 10:59> Cardiology Progress Note - Subjective EP progresas note Patient has done well overnight. He was moved out of ICU. He has no cardiac complaints. His current complaints are of chronic hip pain and weakness. 10 point ROS negative except for weakness, dysnpea on exertion, gait instability , hip/joint pain, and poor sleep. - Objective Vital Signs Temp Pulse Resp BP Pulse Ox 10/23/17 09:48 79 10/23/17 07:42 97.9 F 79 18 136/81 100 10/23/17 07:40 97.9 F 79 18 99 10/23/17 06:58 80 14 10/23/17 03:57 97.8 F 75 18 128/78 98 10/23/17 00:15 78 18 99 10/22/17 23:47 97.6 F 81 16 133/79 100 Admit Weight 221 lb Weight 207 lb 10.807 oz 10/22/17 10/23/17 10/24/17 06:59 06:59 06:59 Intake Total 810 1120 Output Total 890 1045 Balance -80 75 - Physical Examination General/Neuro: alert & oriented x3, NAD Neck: carotid US brisk, no JVD present Lungs: unlabored respirations Heart: PMI normal Abdomen: no HSM, NT/ND - Telemetry Telemetry Rhythm: AF - Labs Result Diagrams: 10/23/17 05:21 10/23/17 05:21 - Assessment/Plan 1. Atrial Fibrillation-rate controlled medically 2. Inclusion of [employer] ICD- hematoma at site nearly resolved. bruising of skin noted. no signs of infection. Follow up for site check in 1-2 weeks as outpatient at [facility]. 3. Pericardial effusion- drain removed yesterday. No exam findings consistent with tamponade or recurrent effusion. Ok for discharge by EP. <Scout Zhou - Last Filed: 10/23/17 16:07> Cardiology Progress Note - Objective Vital Signs Temp Pulse Pulse Resp BP BP Pulse Ox 10/23/17 15:52 97.7 F 81 16 123/80 98 10/23/17 13:35 79 121/82 10/23/17 13:26 80 14 10/23/17 11:31 97.8 F 72 16 112/71 100 10/23/17 09:48 79 10/23/17 07:42 97.9 F 79 18 136/81 100 10/23/17 07:40 97.9 F 79 18 99 10/23/17 06:58 80 14 Admit Weight 221 lb Weight 209 lb 8 oz 10/22/17 10/23/17 10/24/17 06:59 06:59 06:59 Intake Total 810 1120 300 Output Total 890 1045 Balance -80 75 300 - Labs Result Diagrams: 10/23/17 05:21 10/23/17 05:21 Troponin/CKMB CK-MB (CK-2) 2.1 ng/mL (0-6.6) 10/09/17 12:26 Troponin I 0.116 ng/mL (< 0.028) H 10/15/17 05:12 Attending Addendum - Attending Addendum I personally evaluated the patient and discussed the management with Ms Villarreal. I agree with the History, Examination, Assessment and Plan documented above with any addition or exceptions noted below.
--- NOTE | 2017-10-23 11:11 | PDOC.PN ---
- Subjective Encounter Start Date: 10/23/17 Encounter Start Time: 09:20 -: old records requested/rev Pt seen and examined chart reviewed in its entirety. This is my first visit with this patient Breathing is okay, no F/C, no N/V/D/C. left leg/hip pain well controlled at present, no CP, no orthopnea. Pt lives with his at home, plans to go back there, has caregivers and HHC though he cannot recall what agency 10 point ROS performed and neg for all systems except as per HPI - Objective MAR Reviewed: Yes Vital Signs & Weight: Vital Signs (12 hours) Temp Pulse Resp BP Pulse Ox 10/23/17 09:48 79 10/23/17 07:42 97.9 F 79 18 136/81 100 10/23/17 07:40 97.9 F 79 18 99 10/23/17 06:58 80 14 10/23/17 03:57 97.8 F 75 18 128/78 98 10/23/17 00:15 78 18 99 10/22/17 23:47 97.6 F 81 16 133/79 100 Weight Admit Weight 221 lb Weight 207 lb 10.807 oz Most Recent Monitor Data Heart Rate from ECG 88 NIBP 119/65 NIBP BP-Mean 68 Respiration from ECG 14 SpO2 100 I&O: 10/22/17 10/23/17 10/24/17 06:59 06:59 06:59 Intake Total 810 1120 Output Total 890 1045 Balance -80 75 Result Diagrams: 10/23/17 05:21 10/23/17 05:21 Radiology Reviewed by me: Yes EKG Reviewed by me: Yes Phys Exam - Physical Examination Constitutional: NAD chronically ill-appearing HEENT: moist MMs right eye rounda dn reactive, left ptsosi, lid not opened. face wotherwise otherwise symmetric Neck: no nodes, no JVD, supple, full ROM Respiratory: no wheezing, no rales, no rhonchi, clear to auscultation bilateral Cardiovascular: RRR, no significant murmur, no rub right shoulde rpacer site stable. + echhymosis, nontender, no drainage Gastrointestinal: soft, non-tender, no distention, positive bowel sounds Musculoskeletal: pulses present, edema present Neurological: non-focal, normal sensation, moves all 4 limbs Lymphatic: no nodes Psychiatric: normal affect, A&O x 3 Skin: no rash, normal turgor, cap refill <2 seconds Dx/Plan (1) Atrial fibrillation with RVR Code(s): I48.91 - UNSPECIFIED ATRIAL FIBRILLATION Status: Acute Comment: rate controlled, continue Digoxin and Metoprolol (2) Back pain Code(s): M54.9 - DORSALGIA, UNSPECIFIED Status: Acute Qualifiers: Back pain location: low back pain Chronicity: unspecified Back pain laterality: bilateral Comment: has compression fractures per patient based on recent MRI, Lidocaine patch, PT (3) COPD exacerbation Code(s): J44.1 - CHRONIC OBSTRUCTIVE PULMONARY DISEASE W (ACUTE) EXACERBATION Status: Acute Comment: resolving (4) Cardiomyopathy Code(s): I42.9 - CARDIOMYOPATHY, UNSPECIFIED Status: Acute Comment: See above, s/p R-sided AICD placement 10/17/17 (5) Pericardial effusion Code(s): I31.3 - PERICARDIAL EFFUSION (NONINFLAMMATORY) Status: Acute Comment: s/p pericardial window 10/18/17 with 750ml removed, supportive mgmt (6) Pleural effusion on left Code(s): J90 - PLEURAL EFFUSION, NOT ELSEWHERE CLASSIFIED Status: Acute (7) Systolic CHF Code(s): I50.20 - UNSPECIFIED SYSTOLIC (CONGESTIVE) HEART FAILURE Status: Acute Qualifiers: Congestive heart failure chronicity: acute on chronic Qualified Code(s): I50.23 - Acute on chronic systolic (congestive) heart failure Comment: continue diuresis, LHC showing minimal CAD, Lasix 80mg BID - Plan cont current plan of care, PT/OT, respiratory therapy, incentive spirometry, out of bed/ambulate * . will discuss with case management, sounds like he plans to go home with [facility]
--- NOTE | 2017-10-23 17:18 | PRG ---
DATE OF SERVICE: 10/23/2017 SERVICE: Pulmonary Medicine. INTERVAL HISTORY: The patient is doing really quite well from a respiratory standpoint. He looks to have more energy today. He denies any current fevers, chills, nausea or vomiting. He is able to si t up, which is the first time he has been anything, but recumbent or semirecumbent in the past severa l weeks. His hip pain has actually much improved with a little bit of pain medication. [facility] to see how functional he can get before they consider doing any additional proce dures on him. He is committed to working with physical therapy as much as he can. PHYSICAL EXAMINATION: VITAL SIGNS: Afebrile, pulse 81, blood pressure 123/80, respirations 16, saturation 98% on room air. GENERAL: The patient is awake, alert, in no apparent distress. LUNGS: Decent air entry. I do not appreciate a prolonged expiratory phase or wheezing today. HEART: Normal rate and regular. ABDOMEN: Soft, nontender, and nondistended. Bowel sounds positive. MUSCULOSKELETAL: No cyanosis or clubbing. No pitting in the bilateral lower extremities. NEUROLOGIC: Grossly nonfocal. LABORATORY DATA: Hemoglobin 13.0, platelets 129,000 and roughly stable. Basic metabolic profile was essentially unremarkable. Creatinine 0.81. Blood cultures x2 were unremarkable. Influenza A and B are negative. ASSESSMENT: 1. Acute hypoxic respiratory failure. 2. Atrial fibrillation. 3. Acute on chronic systolic heart failure. 4. Left sided pleural effusion. 5. Obstructive sleep apnea. 6. Chronic obstructive pulmonary disease without current exacerbation. 7. Orthopedic issues including spine and back pain that are limiting mobilization. DISCUSSION AND PLAN: The patient will require a repeat chest x-ray in the outpatient setting to veri fy the left-sided effusion resolves. After diuresis, he has been weaned down to room air and his sat urations are fantastic. His strength is improving. At this point, he has no further requirements fo r Pulmonary or Critical Care opinion. Please call with additional questions or concerns moving foralma rosa vanegas
[2017-10-23] MEDS: Tamsulosin HCl 0.4 MG CAP PO SCH (21:07)
[2017-10-23] MEDS: Lidocaine Patch Removal TOP SCH (21:09)
[2017-10-24] MEDS: Acetaminophen/Codeine 30-300mg Tablet PO PRN (01:56)
[2017-10-24 05:23] LABS: Anion Gap 12 mmol/L (10-20); BUN (Urea Nitrogen) 25 mg/dL (8.4-25.7); Calc. Creatinine Clearance 95 mL/min (70-130); Carbon Dioxide 29 mmol/L (23-31); Chloride 99 mmol/L (98-107); Estimated GFR-MDRD 87; Glucose 99 mg/dL (83-110); Potassium 4.4 mmol/L (3.5-5.1); Sodium 136 mmol/L (136-145)
[2017-10-24] MEDS: Mometasone/Formoterol 120 PUFF INHALER INH SCH (06:33)
--- NOTE | 2017-10-24 08:28 | RAD ---
PORTABLE CHEST: HISTORY: Left-sided pleural effusion. COMPARISON: 10/18/17 exam. FINDINGS: Heart size is enlarged. A pacemaker is present. There is increased density in the left base suggest ing some left effusion with associated atelectasis. IMPRESSION: Stable chest. POS: SHAHEED
[2017-10-24] MEDS: Penicillin V Potassium 250 MG TAB PO SCH (08:31)
[2017-10-24] MEDS: Lidocaine 5% Patch TD SCH (08:32)
[2017-10-24] MEDS: Digoxin 0.125 MG TAB PO SCH (08:32)
[2017-10-24] MEDS: Acetaminophen 325 MG TAB PO SCH (08:36)
[2017-10-24] MEDS: Furosemide 40 MG TAB PO SCH (08:36)
[2017-10-24] MEDS: predniSONE 5 MG TAB PO SCH (08:38)
[2017-10-24] MEDS: Ezetimibe 10 MG TAB PO SCH (08:38)
[2017-10-24] MEDS: Rosuvastatin 20 MG TAB PO SCH (08:38)
[2017-10-24] MEDS: Potassium Chloride 10 MEQ TAB PO SCH (08:39)
[2017-10-24] MEDS: Cyanocobalamin (Vitamin B-12) 1,000 MCG TAB PO SCH (08:39)
[2017-10-24] MEDS: Senokot S 8.6-50 MG TAB PO SCH (08:40)
[2017-10-24] MEDS: Polyethylene Glycol 3350 17 GM Packet PO SCH (08:40)
[2017-10-24] MEDS: Latanoprost 0.005% Ophth Soln 2.5 ml Bottle R EYE SCH (08:41)
[2017-10-24] MEDS: Dorzolamide HCl 2% Ophth Soln 10 ml Bottle R EYE SCH (08:42)
[2017-10-24] MEDS: Brimonidine Tartrate 0.2% Ophth Soln 5 ml Bottle R EYE SCH (08:42)
[2017-10-24] MEDS: Loteprednol Etabonate 0.5% Ophth Suspension 5 ml Bottle L EYE SCH (08:43)
[2017-10-24] MEDS ORDERED: Gabapentin 100 MG CAP PO SCH (09:00)
[2017-10-24] MEDS ORDERED: Apixaban 5 MG TAB PO SCH (09:00)
[2017-10-24 11:48] VITALS: BP 137/95; TEMP 97.4
--- NOTE | 2017-10-24 16:15 | DIS ---
PRIMARY CARE PHYSICIAN: Dionicio López M.D. DATE OF ADMISSION: 10/10/2017 DATE OF DISCHARGE: 10/24/2017 DISCHARGE DIAGNOSES: 1. Paroxysmal atrial fibrillation with rapid ventricular response. 2. Status post pacemaker placement. 3. Acute on chronic back pain secondary to compression fractures. 4. Acute exacerbation of chronic obstructive pulmonary disease. 5. Suspected ischemic cardiomyopathy status post AICD placement. 6. Pericardial effusion. 7. Status post pericardial window. 8. Left-sided pleural effusion. 9. Acute on chronic systolic congestive heart failure. CONSULTATIONS: 1. 10/10/2017, Cardiology, Dr. Stalin Alexander. 2. 10/14/2017, Alexandr Welch for Dr. Gustafson with Neurosurgery for possible anesthesia pain managemen t. 3. 10/15/2017, Dr. Scout Zhou with Electrophysiology. 4. 10/18/2017, Dr. Ubaldo Duron with Cardiothoracic Surgery. 5. 10/18/2017, Wilman Hooker with Pulmonary and Critical Care. PROCEDURES: 1. 10/18/2017, pericardiocentesis. 2. 10/18/2017, pericardial window by Dr. Ubaldo Duron. 3. 10/18/2017, left heart catheterization with selective coronary angiography. 4. 10/17/2017, AICD implantation by Dr. Scout Zhou. HISTORY AND PHYSICAL: Mr. Jones is a 81-year-old white male with the above history who presents to the emergency department on the day of admission for acute exacerbation of COPD, acute on chronic res piratory failure and atrial fibrillation with rapid ventricular response. He was evaluated in the Em ergency Department with the above findings and was admitted to the hospital. HOSPITAL COURSE: He was seen and examined by Dr. Wetzel and admitted to the hospital. Cardiolo gy consulted. The patient was seen by Dr. Alexander. He recommended IV Cardizem to continue to conv ert to p.o.; echo and Doppler studies; continue Multaq, digoxin, and Eliquis for his atrial fibrillat ion. By 10/11/2017, atrial fibrillation was in better control, but still rapid. Metoprolol was increased and he considered adding digoxin. The patient continued to have problems, particularly with pain con trol and Alexandr Welch was consulted on 10/14/2017 for assistance. Ultimately, he was seen by Dr. Solange Zhou on 10/15/2017. He was felt to need AICD placement, so he will be further beta blockaded, and arrangements were made to perform once heart catheterization was complete. The patient was taken to the cathode ray tube assembler where a left heart cath was done with above findings. He jensen nued to have problems with pericardial effusion. Dr. Ubaldo Duron was consulted as well. He was ta gray to the operating room for pericardial window and adequate drainage was placed along with drain pl acement. He was continued to be watched in the hospital. From 10/18/2017 to 10/21/2017, he had a de creasing output from his chest tube and it was ultimately removed from the pericardial sac. A pacema ker was placed on 10/17 and beta blockade was continued. The patient has better rate control. On 10/23/2017, took the case over. The patient was doing better, breathing better. He was cleared by electrophysiology for discharge. Today, he was still extremely weak, but refused any rehabilitation. He was able to get up with physi alie therapy at least to a wheelchair and the patient was adamant about going home. Arrangements were made to transport him home with home physical therapy with home health care. PHYSICAL EXAMINATION: The patient was seen and examined on the day of discharge. Discharge plan and disposition were discussed with the patient face to face at the bedside. DISCHARGE MEDICATIONS: 1. Keflex 500 mg p.o. q.6 hours, 28 caplets. 2. Neurontin 100 mg p.o. t.i.d. 3. Dulera 2 puffs inhaled daily. 4. Pen-VK 250 mg p.o. b.i.d. long-term. 5. Prednisone 10 mg p.o. q.a.m. to be weaned by Pulmonary. 6. Tylenol as needed. 7. Aluminum hydroxide 30 mL p.o. as needed for heartburn. 8. Eliquis 2.5 mg p.o. b.i.d. 9. Brimonidine tartrate one drop right eye daily. 10. Cyanocobalamin 1500 mcg p.o. daily 11. Docusate 100 mg p.o. b.i.d. 12. Multaq 400 mg p.o. b.i.d. 13. Zetia 5 mg p.o. daily. 14. Fluocinonide, Lidex 1 application topical b.i.d. as prior to admission. 15. Flonase 1 spray each naris daily. 16. Lasix 40 mg p.o. every afternoon and 80 mg p.o. q.a.m. 17. Gabapentin 100 mg p.o. t.i.d. 18. Hydrocodone as needed per preadmit dosing. 19. Imodium as needed. 20. Lotemax 0.5% ophthalmic gel 1 drop left eye each morning. 21. Lumigan 1 drop right eye daily. 22. Metoprolol succinate 12.5 mg p.o. daily. 23. Systane ophthalmic solution to each eye every 2 hours as needed. 24. Potassium chloride 10 mEq b.i.d. 25. Crestor 20 mg p.o. daily. 26. Flomax one 0.4 mg tablet at bedtime. 27. Ambien 5 mg p.o. at bedtime p.r.n. insomnia. FOLLOWUP APPOINTMENTS: 1. Primary care physician within a week, Dr. Riaz Ramsey. 2. Cardiology, Dr. Pham in 2-[address] Ubaldo Duron, outpatient as needed. 4. Dr. Zhou in 2-3 weeks. DISCHARGE ACTIVITY: Per cardiopulmonary limits. DISCHARGE DIET: Heart healthy diet recommended. DISCHARGE CONDITION: Stable. DISPOSITION: The patient will be discharged home via nonemergent wheelchair van for home health care and physical therapy.
--- NOTE | 2017-10-26 17:35 | EKG ---
Test Reason : Blood Pressure : / mmHG Vent. Rate : 116 BPM Atrial Rate : 122 BPM P-R Int : 000 ms QRS Dur : 084 ms QT Int : 286 ms P-R-T Axes : 000 -05 122 degrees QTc Int : 397 ms Atrial fibrillation with rapid ventricular response with premature ventricular or aberrantly conducte d complexes Low voltage QRS Nonspecific T wave abnormality Abnormal ECG Confirmed by AZUL MABRY ([id number]), associate editor ABNER IRELAND ([id number]) on 10/26/2017 5:33:58 PM Referred By: Confirmed By:AZUL MABRY
== END 2017-10-24 13:40 | disposition home health service (06) | DRG 222 ==
LOC: ERS 11:42 → 2NO 14:33 → OBSVTOIN 10-10 11:30 → CCU 10-17 17:27 → 2SE 10-22 18:36
PROVIDERS: ADMIT Internal Medicine; ATTEND Internal Medicine
PROC: 0JH608Z Insertion of Defibrillator Generator into Chest Subcutaneous Tissue and Fascia, Open Approach (ICD-10-PCS; 2017-10-17)
PROC: 02HK3KZ Insertion of Defibrillator Lead into Right Ventricle, Percutaneous Approach (ICD-10-PCS; 2017-10-17)
PROC: 4A023N7 Measurement of Cardiac Sampling and Pressure, Left Heart, Percutaneous Approach (ICD-10-PCS; 2017-10-17)
PROC: 02H63KZ Insertion of Defibrillator Lead into Right Atrium, Percutaneous Approach (ICD-10-PCS; 2017-10-17)
PROC: 0W9D3ZZ Drainage of Pericardial Cavity, Percutaneous Approach (ICD-10-PCS; 2017-10-17)
PROC: B2111ZZ Fluoroscopy of Multiple Coronary Arteries using Low Osmolar Contrast (ICD-10-PCS; 2017-10-17)
PROC: B2151ZZ Fluoroscopy of Left Heart using Low Osmolar Contrast (ICD-10-PCS; 2017-10-17)
PROC: 0W9D00Z Drainage of Pericardial Cavity with Drainage Device, Open Approach (ICD-10-PCS; principal; 2017-10-18)
PROC: 4B02XTZ Measurement of Cardiac Defibrillator, External Approach (ICD-10-PCS; 2017-10-18)
DX: I13.0 Hypertensive heart and chronic kidney disease with heart failure and stage 1 through stage 4 chronic kidney disease, or unspecified chronic kidney disease (principal); J96.01 Acute respiratory failure with hypoxia; I47.2 Ventricular tachycardia; I50.43 Acute on chronic combined systolic (congestive) and diastolic (congestive) heart failure; J90 Pleural effusion, not elsewhere classified; I31.3 Pericardial effusion (noninflammatory); J44.1 Chronic obstructive pulmonary disease with (acute) exacerbation; I97.638 Postprocedural hematoma of a circulatory system organ or structure following other circulatory system procedure; M48.56XA Collapsed vertebra, not elsewhere classified, lumbar region, initial encounter for fracture; I48.2 Chronic atrial fibrillation; N18.3 Chronic kidney disease, stage 3 (moderate); Z99.81 Dependence on supplemental oxygen; E78.5 Hyperlipidemia, unspecified; N40.0 Benign prostatic hyperplasia without lower urinary tract symptoms; Z79.01 Long term (current) use of anticoagulants; Z87.891 Personal history of nicotine dependence; G47.33 Obstructive sleep apnea (adult) (pediatric); I25.2 Old myocardial infarction; I25.10 Atherosclerotic heart disease of native coronary artery without angina pectoris; I25.5 Ischemic cardiomyopathy; Z95.5 Presence of coronary angioplasty implant and graft; I87.2 Venous insufficiency (chronic) (peripheral); M51.27 Other intervertebral disc displacement, lumbosacral region; M47.896 Other spondylosis, lumbar region; Y83.8 Other surgical procedures as the cause of abnormal reaction of the patient, or of later complication, without mention of misadventure at the time of the procedure
CPT/HCPCS: 33249; 36005; 36415; 71045; 75820; 76942; 80048; 80053; 80061; 82553; 83605; 83735; 83880; 84484; 85014; 85018; 85025; 85049; 85347; 85610; 85730; 87040; 87804; 93005; 93306; 93458; 93798; 94640; 94660; 94664; 96374; 96375; A4216; C1721; C1769; C1777; C1898; G8978-GP-CN; G8979-GP-CM; J0696; J1265; J1644; J1650; J1940; J2001; J2250; J2704; J2720; J3010; J3490; J7050; J7506; J7611; J7620

== ENCOUNTER 2017-12-11 14:03 | Inpatient (IN) | payer MEDICARE, OTHER ==
[2017-12-11 14:35] LABS: Actual Bicarbonate (HCO3a) 30.1 mEq/L (22-26); Base Excess (BEa) 2.1 mEq/L (0 (+/-) 2.5); CO2 Tension 61.8 mmHg (35.0-45.0); O2 Tension (PaO2) 86.6 mmHg (80.0-100.0); pH, Arterial 7.31 (7.35-7.45)
[2017-12-11 14:36] LABS: Hematocrit-ABG 46.6 % (42.0-52.0); Hemoglobin (Hb) 14.6 g/dL (14.0-18.0)
[2017-12-11 14:37] LABS: Analyzer IN Cardio ER; Calcium, Ionized 1.2 mmol/L (1.12-1.30); Puncture Site LRA
[2017-12-11] MEDS ORDERED: Piperacillin/Tazobactam 4.5 GM in Sodium Chloride 0.9% 100 ML IVPB SCH (14:45)
[2017-12-11 14:48] LABS: Hemoglobin 15.9 g/dL (14.0-18.0); Mean Corpuscular Hemoglobin 33.7 pg (27.0-31.0); Mean Platelet Volume 8.4 fL (7.4-10.4); Platelet Count 235 thou/uL (130-400); RBC Distribution Width 17.8 % (11.5-14.5); Red Blood Cell (RBC) Count 4.72 mill/uL (4.70-6.10); White Blood Cell (WBC) Count 9.9 thou/uL (4.8-10.8)
[2017-12-11 14:56] LABS: Bilirubin Small (Negative); Clarity CLOUDY (Clear); Glucose, Urine (Dipstick) Negative (Negative); Leukocyte Moderate (Negative); Nitrite Positive (Negative); Protein, Urine (Dipstick) 100 mg/dL (Neg-Trace); pH, Urine 5.5 (5.0-9.0)
[2017-12-11 14:57] LABS: Blood, Urine Large (Negative); RBC/HPF GREATER THAN 50-TNTC HPF (0-3)
[2017-12-11 14:58] LABS: Bacteria/HPF 4+ HPF (None Seen); Hyaline Casts/LPF 4-6 HYALINE CAST LPF (0-3 Hyaline); Yeast-All Forms 3+ HPF (None Seen)
[2017-12-11 15:03] LABS: CKMB 4.6 ng/mL (0-6.6)
[2017-12-11 15:11] LABS: Troponin I 0.441 ng/mL (< 0.028)
[2017-12-11 15:19] LABS: INR-International Normal Ratio 1.6; PTT 30.4 SEC (22.9-36.1); Prothrombin Time 19.4 SEC (12.0-14.7)
[2017-12-11 15:23] LABS: Anisocytosis SLIGHT = 6-15 cells (100X) (0-5/hpf); Band 1 % (5-11); Lymphocytes 45 % (21-51); MDiff Complete? YES; Monocytes 11 % (0-10); Neutrophil 42 % (42-75); PLT Morphology Comment Appears Adequate; Reactive Lymphocytes 1 % (0-10)
--- NOTE | 2017-12-11 15:24 | RAD ---
PORTABLE UPRIGHT FRONTAL CHEST RADIOGRAPH: 12/11/2017 HISTORY: Sepsis. COMPARISON: 11/25/2017 FINDINGS: There is near complete opacification of the left hemithorax, suggesting a combination of nonspecific pulmonary parenchymal opacity and large left pleural effusion. This has worsened since the 8 exam. There is hazy density in the right lung base, which may signify volume loss and moderate rig ht pleural effusion, new. There is a stable dual-lead transvenous pacing device. There is atheroscl erotic calcification of the aortic arch. IMPRESSION: Marked interval worsening of pleural and parenchymal opacity, left greater than right, with near comp lete opacification of the left hemithorax. Findings suggest pulmonary edema. Superimposed infection or aspiration cannot be excluded. Followup to resolution advised following treatment. POS: NETTIE
[2017-12-11 15:29] LABS: ALT (SGPT) 20 U/L (8-55); AST (SGOT) 26 U/L (5-34); Albumin 3.1 g/dL (3.4-4.8); Alkaline Phosphatase 99 U/L (40-150); Anion Gap 15 mmol/L (10-20); BUN (Urea Nitrogen) 30 mg/dL (8.4-25.7); Bilirubin, Total 1.9 mg/dL (0.2-1.2); CRP (Inflammatory) 1.05 mg/dL (= or < 0.5); Calc. Creatinine Clearance 0 mL/min (70-130); Calcium 9.1 mg/dL (7.8-10.44); Carbon Dioxide 29 mmol/L (23-31); Chloride 105 mmol/L (98-107); Estimated GFR-MDRD 75; Globulin 3.4 g/dL (2.4-3.5); Glucose 143 mg/dL (83-110); Potassium 4.9 mmol/L (3.5-5.1); Protein, Total 6.5 g/dL (5.8-8.1); Sodium 144 mmol/L (136-145)
[2017-12-11] MEDS ORDERED: Furosemide 40 MG/4 ML VIAL ONE (16:56)
[2017-12-11 18:06] LABS: Critical Call Chem Troponin I RESULT DECREASING; Troponin I 0.424 ng/mL (< 0.028)
--- NOTE | 2017-12-11 18:39 | PDOC.FPRHP ---
- History of Present Illness Chief Complaint: Found unresponsive by home health History of Present Illness: 82 yo M w/hx of CHF, COPD, paroxysmal afib w/RVR, HARMONY here via EMS after being found unresponsive by home health earlier today. Per his this morning he was at his normal baseline and went to take a nap at 0930. At 1300 home health tried to wake him and found him to be unresponsive. The nurse found him to have a low blood pressure, unknown what the reading was, and called EMS. Pt recently returned home from rehab following a hospitalization at the beginning of Oct this year where he was found to have recurrent pericardial effusions. He underwent a procedure for pericardial window to drain into his abdomen. Additionally, during that hospitalization he had a AICD placed. An echo on 10/18 found an EF of 40-50%. While in rehab from the hospitalization, he had progressively worsening scrotal edema which resulted in a royal catheter being placed. This royal remained in place after discharge and was removed on . Total time catheter was in place was 17 days. After discharge from the rehab, pts noticed that he had increasing lethargy and would sleep most of the day. She also noted a new onset cough over the past 24 hours. PCP: Maribel Code status: Full - Allergies/Adverse Reactions Allergies Allergy/AdvReac Type Severity Reaction Status Date / Time No Known Allergies Allergy Verified 06/15/17 06:23 - Home Medications Medication Instructions Recorded Confirmed Type Apixaban [Eliquis] 2.5 mg PO BID 08/08/16 12/11/17 History Metoprolol Succinate [Toprol XL] 12.5 mg PO DAILY 08/08/16 12/11/17 History Rosuvastatin Calcium [Crestor] 20 mg PO DAILY 08/08/16 12/11/17 History Tamsulosin HCl 1 cap PO HS 08/08/16 12/11/17 History Ezetimibe [Zetia] 5 mg PO DAILY 01/22/17 12/11/17 History FluocinoNIDE 0.05% Cream [Lidex 1 applic TOP BID PRN 01/22/17 12/11/17 History 0.05% Cream] Loteprednol Etabonate [Lotemax 1 drop L EYE QAM 01/24/17 12/11/17 History 0.5% Ophth Gel] Brimonidine Tartrate [Brimonidine 1 drop R EYE DAILY 06/15/17 10/09/17 History Tartrate 0.15% Ophth Soln] Dorzolamide HCl [Dorzolamide HCl 1 drop R EYE DAILY 06/15/17 12/11/17 History 2% Ophth Soln] Dronedarone HCl [Multaq] 400 mg PO BID tab 06/20/17 12/11/17 Rx Furosemide [Lasix] 40 mg PO 1400 tab 06/20/17 12/11/17 Rx Furosemide [Lasix] 80 mg PO DAILY-AC tab 06/20/17 12/11/17 Rx Polyethylene Glycol OPTH DROP 0 drop EA EYE Q2H PRN #0 bot 06/20/17 12/11/17 Rx [Systane Ophth Solution] Cyanocobalamin (Vitamin B-12) 1,500 mcg PO DAILY 10/09/17 12/11/17 History [B-12] Docusate Sodium [Stool Softener] 100 mg PO BID 10/09/17 12/11/17 History Fluticasone Propionate [Flonase 1 spray EA NARE DAILY 10/09/17 12/11/17 History Nasal Lula] Lumagin Drops 1 drop R EYE DAILY 10/09/17 12/11/17 History Potassium Chloride [Klor-Con 10] 10 meq PO BID 10/09/17 12/11/17 History Gabapentin [Neurontin] 100 mg PO TID #90 cap 10/24/17 12/11/17 Rx Mometasone/Formoterol 200/5 2 puff INH DAILY-RT #1 aer 10/24/17 12/11/17 Rx [Dulera 200 Mcg/5 Mcg Inhaler] Penicillin V Potassium 250 mg PO BID #20 tab 10/24/17 12/11/17 Rx predniSONE 10 mg PO QAM-WM #60 tab 10/24/17 12/11/17 Rx - History PMHx: CHF, COPD, paroxysmal afib w/ RVR, HARMONY, recurrent pericardial effusion PSHx: AICD placement Nov 03, pericardial window Nov 03 FHx: Mother - emphysema, at 83. Father - from sudden cardiac at age 60. Social: Heavy former smoker, quit in 1999. Denies alcohol use. - Review of Systems ROS unobtainable: due to mental status (Provided by ) General: reports: fatigue. denies: fever/chills, weight/appetite/sleep changes Eyes: denies: vision changes ENT: denies: nasal congestion Respiratory: reports: cough (24 hours), shortness of breath, exercise intolerance Cardiovascular: reports: edema. denies: chest pain, palpitation Gastrointestinal: denies: nausea, vomiting, abdominal pain Genitourinary: denies: incontinence, dysuria Skin: denies: rashes Musculoskeletal: denies: pain, tenderness Neurological: denies: numbness, syncope Psychological: denies: anxiety, depression - Vital signs BP: 123/54 HR: 76 RR: 18 Tmax: 96.8 Pox: 94% on 4L Wt: 100 kg - Physical Exam -Constitutional: Difficult to arouse A&O x1 HEENT: normocephalic and atraumatic, PERRLA, EOMI, no scleral icterus Neck: supple Chest: no-tender to palpation Heart: RRR -Heart: muffled heart sounds, pitting edema to diaphragm -Lungs: No air movement on L, diffuse rales on R Abdomen: soft, non-tender Musculoskeletal: normal structure Neurological: no focal deficit Skin: no rash/lesions, no jaundice -Heme/Lymphatic: Multiple bruises on arms and legs. -Psychiatric: Unable to assess dt inability to arouse FMR H&P: Results - Labs Result Diagrams: 12/11/17 14:16 12/11/17 14:16 Lab results: WBC 9.9 thou/uL (4.8-10.8) 12/11/17 14:16 Hgb 15.9 g/dL (14.0-18.0) 12/11/17 14:16 Hct 49.8 % (42.0-52.0) 12/11/17 14:16 MCV 105.0 fl (80.0-94.0) H 12/11/17 14:16 Plt Count 235 thou/uL (130-400) 12/11/17 14:16 Band Neuts % (Manual) 1 % (5-11) L 12/11/17 14:16 ESR Westergren 17 mm/hr (Less than 20) 12/11/17 14:16 ABG pH 7.31 (7.35-7.45) L 12/11/17 14:28 ABG pCO2 61.8 mmHg (35.0-45.0) H* 12/11/17 14:28 ABG pO2 86.6 mmHg (80.0-100.0) 12/11/17 14:28 Sodium 144 mmol/L (136-145) 12/11/17 14:16 Potassium 4.9 mmol/L (3.5-5.1) 12/11/17 14:16 Chloride 105 mmol/L (98-107) 12/11/17 14:16 Carbon Dioxide 29 mmol/L (23-31) 12/11/17 14:16 BUN 30 mg/dL (8.4-25.7) H 12/11/17 14:16 Creatinine 0.96 mg/dL (0.6-1.3) 12/11/17 14:16 Glucose 143 mg/dL (83-110) H 12/11/17 14:16 Lactic Acid 4.0 mmol/L (0.5-2.2) H 12/11/17 14:58 Calcium 9.1 mg/dL (7.8-10.44) 12/11/17 14:16 Total Bilirubin 1.9 mg/dL (0.2-1.2) H 12/11/17 14:16 AST 26 U/L (5-34) 12/11/17 14:16 ALT 20 U/L (8-55) 12/11/17 14:16 Alkaline Phosphatase 99 U/L (40-150) 12/11/17 14:16 CK-MB (CK-2) 4.6 ng/mL (0-6.6) 12/11/17 14:16 C-Reactive Protein 1.05 mg/dL (= or < 0.5) H 12/11/17 14:16 B-Natriuretic Peptide 852.7 pg/mL (0-100) H 12/11/17 14:16 Serum Total Protein 6.5 g/dL (5.8-8.1) 12/11/17 14:16 Albumin 3.1 g/dL (3.4-4.8) L 12/11/17 14:16 Urine Ketones Negative mg/dL (Negative) 12/11/17 14:39 Urine Blood Large (Negative) H 12/11/17 14:39 Urine Nitrite Positive (Negative) H 12/11/17 14:39 Ur Leukocyte Esterase Moderate (Negative) H 12/11/17 14:39 Urine RBC GREATER THAN 50-TNTC HPF (0-3) H 12/11/17 14:39 Urine WBC Greater Than 50-TNTC HPF (0-3) H 12/11/17 14:39 Ur Squamous Epith Cells 7-10 HPF (0-3) H 12/11/17 14:39 Urine Bacteria 4+ HPF (None Seen) H 12/11/17 14:39 - EKG Interpretation EKG: HR 93, V paced rhythm, possible ST elevation in V3 and ST depression V4-5 - Radiology Interpretation Chest x-ray Status: report reviewed by me (significant pulmonary edema b/l. Total opacification of L hemidthorax) FMR H&P: A/P - Problem List (1) Acute respiratory failure with hypoxia Current Visit: Yes Status: Acute Code(s): J96.01 - ACUTE RESPIRATORY FAILURE WITH HYPOXIA (2) CHF exacerbation Current Visit: Yes Status: Acute Priority: High Code(s): I50.9 - HEART FAILURE, UNSPECIFIED Qualifiers: Heart failure type: unspecified Qualified Code(s): I50.9 - Heart failure, unspecified (3) UTI (urinary tract infection) Current Visit: No Status: Acute Priority: High Qualifiers: Urinary tract infection type: acute cystitis Hematuria presence: without hematuria Qualified Code(s): N30.00 - Acute cystitis without hematuria (4) Pericardial effusion Current Visit: No Status: Acute Priority: High Code(s): I31.3 - PERICARDIAL EFFUSION (NONINFLAMMATORY) Comment: s/p pericardial window 10/18/17 with 750ml removed, supportive mgmt (5) Elevated troponin Current Visit: Yes Status: Acute Priority: High Code(s): R74.8 - ABNORMAL LEVELS OF OTHER SERUM ENZYMES (6) Elevated brain natriuretic peptide (BNP) level Current Visit: Yes Status: Acute Priority: Medium Code(s): R79.89 - OTHER SPECIFIED ABNORMAL FINDINGS OF BLOOD CHEMISTRY (7) Elevated lactic acid level Current Visit: Yes Status: Acute Priority: High Code(s): R79.89 - OTHER SPECIFIED ABNORMAL FINDINGS OF BLOOD CHEMISTRY (8) Hyperbilirubinemia Current Visit: Yes Status: Acute Priority: Medium Code(s): E80.6 - OTHER DISORDERS OF BILIRUBIN METABOLISM (9) HARMONY (obstructive sleep apnea) Current Visit: Yes Status: Acute Priority: Low Code(s): G47.33 - OBSTRUCTIVE SLEEP APNEA (ADULT) (PEDIATRIC) (10) CAD (coronary artery disease) Current Visit: No Status: Chronic Code(s): I25.10 - ATHSCL HEART DISEASE OF [place] CORONARY ARTERY W/O ANG PCTRS Qualifiers: Coronary Disease-Associated Artery/Lesion type: [place] artery [place] vs. transplanted heart: [place] heart Associated angina: without angina Qualified Code(s): I25.10 - Atherosclerotic heart disease of [place] coronary artery without angina pectoris (11) Paroxysmal atrial fibrillation Current Visit: No Status: Chronic Code(s): I48.0 - PAROXYSMAL ATRIAL FIBRILLATION (12) Altered mental status Current Visit: Yes Status: Acute Priority: Medium Code(s): R41.82 - ALTERED MENTAL STATUS, UNSPECIFIED (13) Sacral decubitus ulcer Current Visit: Yes Status: Acute Priority: Medium Qualifiers: Pressure ulcer stage: unspecified pressure ulcer stage Qualified Code(s): L89.159 - Pressure ulcer of sacral region, unspecified stage - Plan Acute respiratory failure with hypoxia - Required nonrebreather by EMS and in ED. No documentation of hypoxia per chart although was 94% on NRB when brought to ED so almost certainly was <88% O2. - Left lung full of fluid - aggressive diuresis and cards consult to assess recent pericardial window - Pulm consult in AM as in IMCU - Weaned currently to nasal cannula CHF exacerbation - Admit to IMCU - Diurese with lasix - Currently maintaining oxygenation with NC, continue PRN - Strict I/O Pericardial effusion - Identified on FAST exam in ED - Pt had window in Oct of this year. Currently BP and HR are WNL - IMCU as above. Monitor vitals Elevated trop - 2nd trop is slightly down trending, trend for 3 total - consult cardiology. Spoke with Dr Sky who asked that the pt be NPO at midnight hold elequis in am incase of cath - ASA UTI - Concern that this may be adding to the AMS - Urine cx on 11/29 shows enterobacter resistant to 3rd gen cephalosporins and sensitive to bactrim - As there is some concern for bacteremia, will continue vanc started in ED and add merrem until new cx result - Blood and urine cx pending - dc royal when possible - Procal pending - Trend lactate - CBC/CMP in am AMS - 2/2 CHF exacerbation and infection. Treat as above Elevated BMP - 2/2 CHF. Tx as above Hyperbilirubinemia - likely 2/2 congestion. repeat CMP in am COPD - unclear if pt is taking any medications, will contact PCP in am afib - Pt currently in NSR. 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 Found by home health today mostly unresponsive to questioning and difficult to arouse. Was recently at inpatient rehab facility then SNF with discharge home 5 days ago. Had good energy and activity level first 2 days but has become more fatigued and sleeping most of day recently. Had AICD and pericardial window performed by Dr. Zhou in last month. Royal catheter in place for 17 days and removed yesterday. Hx lymphedema with large amount of edema at baseline. Family states due to laying flat more regularly in last couple days, he is developing edema more in his torso than usual. - Pertinent findings Gen: A&Ox3, sleepy but arousable CV: RRR, muffled heart sounds Lungs: no air movement on L, rales on R Abd: soft, NT/ND Ext: 3+ pitting edema BLE up to mid chest Heme: multiple bruises on extremities - Plan Date/Time: 12/11/171815 1. Acute hypoxic respiratory failure - Pt required nonrebreather and was 94% on that when brought by EMS. No documented hypoxia although certainly hypoxic due to this. Aggressive diuresis due to nonfunctional L lung from fluid. Pulm consult in AM. 2. CHF exacerbation-Pt has hx of lymphedema with family stating edema seems more stable. BNP elevated and fluid ally out L lung. Will heavily diurese and consult cardiology. Strict I/Os. Admission to IMCU. 3. Pericardial effusion-identified on FAST exam in ED and by faculty bedside [facility]/ [facility] eval. Pericardial window performed in Oct by Dr. Zhou. With reaccumulatio3 , may not be patent. Cards consult. Spoke with Dr. Sky who felt stable until morning. 4. Elevated troponins-2nd troponin downtrended briefly. NPO at midnight and holding Eliquis in case of cath in AM per cards. No therapeutic lovenox at this time. Likely demand. Reeval if chest pain. 5. AMS 2/2 UTI-felt likely related to length of royal placement. Start broad spectrum abx and await cultures. Change in mentation potentially related to infection. Await UCx, BCx. CBC in AM. 6. Afib - home meds. NSR currently. Tele monitoring. 7. HARMONY - CPAP HS. 8. Sacral ulcer-wound care consult. I, Terry Wilekrson, have evaluated this patient and agree with findings/plan as outlined by rn international resident. Pertinent changes/additions are listed here. Attending Addendum - Attending Addendum Date/Time: 12/11/172132 I personally evaluated the patient and discussed the management with team. I agree with and repeated the History, Examination, Assessment and Plan documented above with any addition or exceptions noted below. Pt denies chest pain currently, somewhat endorses shortness of breath but only answers very direct questions. Agree with exam above. On POCUS moderate effusion, very poor global function. Large pleural effusions L>R. Sonolucent fluid in all compartments without obvious debris. Trend TnI, repeat ECG, diuresis. Maintain O2 sats. Will d/w cardiology. IMCU admission.
[2017-12-11] MEDS ORDERED: Polyethylene Glycol OPTH DROP 15 ML BOT EA EYE PRN (19:36)
[2017-12-11] MEDS ORDERED: Furosemide 40 MG/4 ML VIAL SLOW IVP ONE (19:41)
[2017-12-11 19:42] LABS: Lactic Acid 1.9 mmol/L (0.5-2.2)
[2017-12-11] MEDS ORDERED: Docusate 100 MG CAP PO SCH (21:00)
[2017-12-11 22:36] LABS: Lactic Acid 1.7 mmol/L (0.5-2.2)
[2017-12-11 22:52] LABS: Troponin I 0.494 ng/mL (< 0.028)
[2017-12-11] MEDS: Tamsulosin HCl 0.4 MG CAP PO SCH (23:38)
[2017-12-11] MEDS: Gabapentin 100 MG CAP PO SCH (23:38)
[2017-12-11] MEDS: Dronedarone HCl 400 MG TAB PO SCH (23:38)
[2017-12-11] MEDS: Potassium Chloride 10 MEQ TAB PO SCH (23:38)
[2017-12-11] MEDS: MEROPENEM 1 GM/50 ML 1 GM in Premix Bag 1 BAG IVPB SCH (23:39)
[2017-12-11] MEDS: Penicillin V Potassium 250 MG TAB PO SCH (23:39)
[2017-12-11] MEDS: Docusate 100 MG CAP PO SCH (23:39)
[2017-12-12 01:17] LABS: Troponin I 0.549 ng/mL (< 0.028)
[2017-12-12 04:48] LABS: #Lymphocytes 0.6 thou/uL (1.20-3.40); #Monocytes 0.8 thou/uL (0.11-0.59); #Neutrophils 4.6 thou/uL (1.40-6.50); %Basophils 0.4 % (0.0-1.0); %Eosinophils 0.4 % (0.0-10.0); %Lymphocytes 10.1 % (21.0-51.0); %Monocytes 12.9 % (0.0-10.0); %Neutrophils 76.1 % (42.0-75.0); Hemoglobin 14.6 g/dL (14.0-18.0); Mean Corpuscular HGB CONC 31.1 g/dL (32.0-36.0); Mean Corpuscular Hemoglobin 32.7 pg (27.0-31.0); Mean Platelet Volume 8.2 fL (7.4-10.4); Platelet Count 198 thou/uL (130-400); RBC Distribution Width 17.5 % (11.5-14.5); Red Blood Cell (RBC) Count 4.46 mill/uL (4.70-6.10)
[2017-12-12 04:56] LABS: ALT (SGPT) 21 U/L (8-55); AST (SGOT) 25 U/L (5-34); Alkaline Phosphatase 88 U/L (40-150); Anion Gap 10 mmol/L (10-20); BUN (Urea Nitrogen) 34 mg/dL (8.4-25.7); Bilirubin, Total 1.7 mg/dL (0.2-1.2); Calc. Creatinine Clearance 76 mL/min (70-130); Carbon Dioxide 35 mmol/L (23-31); Chloride 104 mmol/L (98-107); Estimated GFR-MDRD 65; Globulin 3.2 g/dL (2.4-3.5); Glucose 103 mg/dL (83-110); Potassium 4.5 mmol/L (3.5-5.1); Protein, Total 6.2 g/dL (5.8-8.1); Sodium 144 mmol/L (136-145)
[2017-12-12 04:58] LABS: CKMB 4.2 ng/mL (0-6.6)
[2017-12-12 05:06] LABS: Troponin I 0.577 ng/mL (< 0.028)
[2017-12-12] MEDS ORDERED: Furosemide 100 MG/10 ML VIAL SLOW IVP SCH (06:00)
[2017-12-12] MEDS: Furosemide 100 MG/10 ML VIAL SLOW IVP SCH ×2 (06:26→17:09)
[2017-12-12] MEDS: MEROPENEM 1 GM/50 ML 1 GM in Premix Bag 1 BAG IVPB SCH ×3 (06:29→23:23)
[2017-12-12] MEDS ORDERED: Furosemide 80 MG TAB PO SCH (07:30)
--- NOTE | 2017-12-12 08:26 | PDOC.FM ---
- Subjective Subjective: 82 yo M w/hx of CHF, COPD, afib, HARMONY admitted for acute CHF exacerbation and UTI. When admitted pt would only answer direct questions and was otherwise difficult to arouse. Today he is interactive and A&O x4. He denies chest pain, SOB, cough. He complains of penile discharge and burning. There were no acute events over night. - Objective MAR Reviewed: Yes Vital Signs & Weight: Vital Signs (12 hours) Temp Pulse Resp BP Pulse Ox 12/12/17 07:00 97.7 F 85 20 113/87 98 12/12/17 04:05 98.4 F 75 20 118/63 100 12/12/17 02:02 74 22 H 126/56 L 100 12/12/17 00:00 79 22 H 117/53 L 100 12/11/17 21:19 98.6 F 63 24 H 114/65 100 Weight Weight 99.6 kg I&O: 12/11/17 12/12/17 12/13/17 06:59 06:59 06:59 Intake Total 430 Output Total 450 Balance -20 Result Diagrams: 12/12/17 04:03 12/12/17 04:03 <Dennis Higgins - Last Filed: 12/12/17 08:23> - Objective Vital Signs & Weight: Vital Signs (12 hours) Temp Pulse Pulse Pulse Resp BP BP 12/12/17 16:35 12/12/17 15:00 97.5 F L 75 18 12/12/17 11:10 78 75 116/63 112/59 L 12/12/17 10:50 97.9 F 76 22 H 12/12/17 08:58 97.7 F 77 24 H 12/12/17 08:37 12/12/17 08:35 77 24 H 12/12/17 07:00 97.7 F 85 20 BP Pulse Ox 12/12/17 16:35 98 12/12/17 15:00 121/64 100 12/12/17 11:10 12/12/17 10:50 123/64 100 12/12/17 08:58 98 12/12/17 08:37 100 12/12/17 08:35 100 12/12/17 07:00 113/87 98 Weight Admit Weight 99.6 kg Weight 99.6 kg I&O: 03/12/12/17 12/13/17 06:59 06:59 06:59 Intake Total 430 Output Total 450 Balance -20 Result Diagrams: 12/12/17 04:03 12/12/17 04:03 <Samantha Garcia - Last Filed: 12/12/17 17:17> Phys Exam - Physical Examination Constitutional: NAD HEENT: PERRLA, moist MMs, sclera anicteric Neck: supple, full ROM Respiratory: no wheezing Minimal air movement on L, this is improved from amission. Rales throughout on R, better movement un UL than LL Cardiovascular: RRR, no significant murmur, no rub pitting edema to lower abdomen Gastrointestinal: soft, non-tender, no distention, positive bowel sounds edema as above Neurological: non-focal, normal sensation, moves all 4 limbs Psychiatric: normal affect, A&O x 3 Skin: no rash <Dennis Higgins - Last Filed: 12/12/17 08:23> Dx/Plan (1) CHF exacerbation Code(s): I50.9 - HEART FAILURE, UNSPECIFIED Status: Acute QualifierTitle: Heart failure type: unspecified Qualified Code(s): I50.9 - Heart failure, unspecified (2) UTI (urinary tract infection) Status: Acute QualifierTitle: Urinary tract infection type: acute cystitis Hematuria presence: without hematuria Qualified Code(s): N30.00 - Acute cystitis without hematuria (3) Pericardial effusion Code(s): I31.3 - PERICARDIAL EFFUSION (NONINFLAMMATORY) Status: Acute (4) Elevated troponin Code(s): R74.8 - ABNORMAL LEVELS OF OTHER SERUM ENZYMES Status: Acute (5) Elevated brain natriuretic peptide (BNP) level Code(s): R79.89 - OTHER SPECIFIED ABNORMAL FINDINGS OF BLOOD CHEMISTRY Status : Acute (6) Elevated lactic acid level Code(s): R79.89 - OTHER SPECIFIED ABNORMAL FINDINGS OF BLOOD CHEMISTRY Status : Acute (7) Hyperbilirubinemia Code(s): E80.6 - OTHER DISORDERS OF BILIRUBIN METABOLISM Status: Acute (8) HARMONY (obstructive sleep apnea) Code(s): G47.33 - OBSTRUCTIVE SLEEP APNEA (ADULT) (PEDIATRIC) Status: Acute (9) CAD (coronary artery disease) Code(s): I25.10 - ATHSCL HEART DISEASE OF [place] CORONARY ARTERY W/O ANG PCTRS Status: Chronic QualifierTitle: Coronary Disease-Associated Artery/Lesion type: [place] artery [place] vs. transplanted heart: [place] heart Associated angina: without angina Qualified Code(s): I25.10 - Atherosclerotic heart disease of [place] coronary artery without angina pectoris (10) Paroxysmal atrial fibrillation Code(s): I48.0 - PAROXYSMAL ATRIAL FIBRILLATION Status: Chronic (11) Altered mental status Code(s): R41.82 - ALTERED MENTAL STATUS, UNSPECIFIED Status: Acute (12) Sacral decubitus ulcer Status: Acute QualifierTitle: Pressure ulcer stage: unspecified pressure ulcer stage Qualified Code(s): L89.159 - Pressure ulcer of sacral region, unspecified stage - Plan Plan: Acute respiratory failure with hypoxia - Today is at 100% on 3 L. Required nonrebreather by EMS and in ED. No documentation of hypoxia per chart although was 94% on NRB when brought to ED so almost certainly was <88% O2. - Left lung full of fluid - aggressive diuresis and cards consult to assess recent pericardial window - Pulm consult, appreciate recommendation - Continue to wean O2 CHF exacerbation - Diurese with lasix, output has been 400 mL since admission. Pt typically gets 120 of PO lasix daily. Will increase dosing here and follow I/O - Currently maintaining oxygenation with NC, continue PRN - Strict I/O Pericardial effusion - Cards consulted, appreciate recommendation - BP and HR normal, low concern for tamponade - Identified on FAST exam in ED - Pt had window in Oct of this year. Currently BP and HR are WNL - IMCU as above. Monitor vitals Elevated trop - Continued to slowly elevate over night. Recheck is pending. - Cards consulted, appreciate recommendation UTI, bacterial and yeast - Urine cx on 11/29 shows enterobacter resistant to 3rd gen cephalosporins and sensitive to bactrim - Consider stepping down abx today given improvement and negative procal - Yeast ID'd in culture. Will add oral and monitor QT segment given that pt is on Multaq - Blood and urine cx pending - davi royal when possible - CBC/CMP in am AMS - Resolved Elevated BMP - 2/2 CHF. Tx as above Hyperbilirubinemia - likely 2/2 congestion. Improved this morning. repeat CMP in am COPD - unclear if pt is taking any medications, will contact PCP in am afib - Pt currently in NSR. monitor on tele - restart eliquis today if cards does not anticipate stress or cath HARMONY - order CPAP HS Sacral decub - consult would care - dress and turn pt per routine <Dennis Higgins - Last Filed: 12/12/17 08:23> Attending Addendum - Attending Addendum Date/Time: 12/12/17 1651 I personally evaluated the patient and discussed the management with Dr. Higgins and Dr. Wilkerson I agree with the History, Examination, Assessment and Plan documented above with any addition or exceptions noted below. 82 yo male with multiple medical conditions admitted for acute respiratory failure related to hypoxia. HD#1 Patient reports he is feeling better. Still fatigued with increased work of breathing. VS reviewed. Labs reviewed. Imaging reviewed. Cards consulted. Pericardial effusion with HF: Unknown etiology. s/p window last hospitalizations. Cards consulted. Consider CV surg consult as needed per ECHO read. Continue diuretic therapy. Review medical records. Demand ischemia: Mild CAD on [facility] in October. Likely pericardial effusion has reformed causing elevated trops. Cards following. Patient prepared if repeat Cath needed. EKG is paced rhythm. Patient currently without pain. Catheter associated UTI: Patient has catheter from [facility] facility. Past cultures and UA reviewed. On exam purulence with pain on manipulation. Will continue meropenem. Cath changed at admission. Will review records. Patient has had cath since previous discharge. Afebrile overnight. Blood cx obtained at admission. Sacral decub: Wound care with air mattress. Mary: Treat skin infection with topical. Noted to be on urine culture x2. Due to risk from cardiac medication for prolonged QT will await to see if symptomatic. Patient not neuropenic at this time. Adjust medication per chronic conditions as needed. ABrayMD <Samantha Garcia - Last Filed: 12/12/17 17:17>
[2017-12-12] MEDS: Mometasone/Formoterol 120 PUFF INHALER INH SCH (08:35)
[2017-12-12] MEDS: Penicillin V Potassium 250 MG TAB PO SCH ×2 (08:36→21:08)
[2017-12-12] MEDS ORDERED: Nystatin Powder 15 GM BOT TOP PRN (08:36)
[2017-12-12] MEDS: Docusate 100 MG CAP PO SCH ×2 (08:38→21:08)
[2017-12-12] MEDS: predniSONE 20 MG TAB PO SCH (08:38)
[2017-12-12] MEDS: Potassium Chloride 10 MEQ TAB PO SCH ×2 (08:39→21:08)
[2017-12-12] MEDS: Gabapentin 100 MG CAP PO SCH ×3 (08:39→21:08)
[2017-12-12] MEDS: Rosuvastatin 20 MG TAB PO SCH (08:40)
[2017-12-12] MEDS: Cyanocobalamin (Vitamin B-12) 1,000 MCG TAB PO SCH (08:40)
[2017-12-12] MEDS: Dronedarone HCl 400 MG TAB PO SCH ×2 (08:41→21:08)
[2017-12-12] MEDS: Ezetimibe 10 MG TAB PO SCH (08:41)
[2017-12-12] MEDS ORDERED: Vancomycin HCl 1.5 GM in Sodium Chloride 0.9% 250 ML 300 ML IVPB SCH (09:00)
[2017-12-12 09:35] LABS: Troponin I 0.616 ng/mL (< 0.028)
[2017-12-12] MEDS: Loteprednol Etabonate 0.5% Ophth Suspension 5 ml Bottle L EYE SCH (11:29)
[2017-12-12] MEDS: Brimonidine Tartrate 0.2% Ophth Soln 5 ml Bottle R EYE SCH (11:29)
[2017-12-12] MEDS: Dorzolamide HCl 2% Ophth Soln 10 ml Bottle R EYE SCH (11:30)
[2017-12-12] MEDS: Fluticasone Propionate Nasal Spray 16 gm Bottle NASAL SCH (11:30)
[2017-12-12] MEDS: Latanoprost 0.005% Ophth Soln 2.5 ml Bottle R EYE SCH (11:30)
--- NOTE | 2017-12-12 11:51 | CON ---
DATE OF CONSULTATION: 12/12/2017 REASON FOR CONSULTATION: Acute respiratory failure. HISTORY OF PRESENT ILLNESS: This patient was admitted to the hospital yesterday from home. He was f ound to be unresponsive by his home health team. On arrival, he was hypoxic. He was found to be in florid pulmonary edema with a fairly substantial left-sided pleural effusion. He has a known history of a cardiomyopathy with depressed ejection fraction. His last echocardiogram from 10/10/2017 demon strated EF of 20% to 25%. He has received intensive diuresis overnight and says he feels better toda y in terms of his breathing. PAST MEDICAL HISTORY: 1. Chronic systolic heart failure. 2. COPD. 3. Paroxysmal atrial fibrillation. 4. Obstructive sleep apnea. 5. Recurrent pericardial effusion. PAST SURGICAL HISTORY: 1. AICD placement in mid October. 2. Pericardial window placement. FAMILY MEDICAL HISTORY: Remarkable for emphysema, sudden cardiac . SOCIAL HISTORY: Currently not smoking and drinking, but did smoke in the past. REVIEW OF SYSTEMS: Twelve point review of systems remarkable for fatigue and dyspnea, otherwise nega tive. PHYSICAL EXAMINATION: VITAL SIGNS: Temperature 97.7, pulse 87, respirations 24, O2 sat 100% on 3 liters, blood pressure 11 3/87. GENERAL: He is currently calm and in no distress. HEENT: Pupils react. Sclerae icteric. Oropharynx clear. NECK: No adenopathy, no JVD. LUNGS: He has diminished percussion left base. He has some crackles in left base, right side is albino rly clear. CARDIOVASCULAR: S1, S2 regular. ABDOMEN: Soft, nontender, nondistended. EXTREMITIES: Edematous from the thighs downward. LABORATORY AND X-RAY FINDINGS: White blood cell count 6, hematocrit 46.9, platelet count 198. INR 1 .6, pH 7.31, PCO2 61, PO2 of 86. Sodium 144, potassium 4.5, chloride 104, CO2 35, BUN 34, creatinine 1.1, glucose 103. Troponin 0.577, albumin 3.0. Chest x-ray shows a fairly sizable left pleural eff usion. He has chronic interstitial edema bilaterally. ASSESSMENT: 1. Acute systolic heart failure. 2. Doubt we are dealing with pneumonia. 3. History of underlying chronic obstructive pulmonary disease. This does not currently seem to be an exacerbation. RECOMMENDATIONS: 1. Continue diuresis. 2. Repeat x-ray tomorrow. If effusion has not improved substantially, then consider thoracentesis. Needs a repeat echocardiogram to make sure that the pericardial effusion has not recurred. We would consolidate and/or discontinue most of his antibiotics as what he is giving at the current time is ov erkill. The above encompassed 70 minutes time, of that time greater than 50% was spent with the patient at th e bedside and/or in the patient's unit.
--- NOTE | 2017-12-12 12:14 | PQF ---
DATE: 12-12-17 ATTN: DR. LAILA LOPEZ Please exercise your independent, professional judgment in responding to the clarification form. Clinical indicators are provided on the bottom of this form for your review Please check appropriate box(es): [x ] Sepsis due to: ( UTI, Sacral Decub , etc.) ___UTI _ [ x ] Severe sepsis with acute organ dysfunction of: ____Respiratory failure, congestive heart failure (Examples: respiratory failure, other) [ x ] Other diagnosis CHF exacerbation [ ] Unable to determine In addition, please specify: Present on Admission (POA): [ x ] Yes [ ] No [ ] Unable to determine For continuity of documentation, please document condition throughout progress notes and discharge summary. Thank You. CLINICAL INDICATORS - SIGNS / SYMPTOMS / LABS ER DIAGNOSIS: UNRESPONSIVE, HYPOXIC, UTI-SEPSIS TEMP: (ER) 95.7, 96.8 CRITICORE TEMP RR: (ER) 23, 21, 22 12/11/17: 24, 24 12-12-17: 22, 22, 24, 24, 22 H&P: INCREASING LETHARGY, IN WITH UTI, ACUTE RESPIRATORY FAILURE WITH HYPOXIA , CHF EXACERBATION, AMS, URINE CX ON 11/29 SHOWS ENTEROBACTER RESISTANT TO 3RD GEN CEPHALOSPORINS AND SENSITIVE TO BACTRIM THERE IS SOME CONCERN FOR BACTEREMIA, WILL CONT VANC STATED IN ED AND ADD MERREN UNTIL NEW CX RESULT, SACRAL DECUB C-REACTIVE PROTEIN: 12-11-17: 1.05 LACTIC ACID: 12-11-17: 4.0 RISK FACTORS: H&P: INCREASING LETHARGY, IN WITH UTI, ACUTE RESPIRATORY FAILURE WITH HYPOXIA, CHF EXACERBATION, AMS, URINE CX ON 11/29 SHOWS ENTEROBACTER RESISTANT TO 3RD GEN CEPHALOSPORINS AND SENSITIVE TO BACTRIM THERE IS SOME CONCERN FOR BACTEREMIA, WILL CONT VANC STARTED IN ED AND ADD MERREN UNTIL NEW CX RESULT, SACRAL DECUB ADVANCED AGE TREATMENTS: (MAR) MERREM, VANCOMYCIN, ZOSYN (This form is maintained as a part of the permanent medical record) 2014 [employer] All Rights Reserved MALVIN [email or web address] Office: [phone] [facility] HOSPITALSheridan
[2017-12-12 13:45] LABS: Critical Call Chem Troponin I RESULT DECREASING
[2017-12-12] MEDS ORDERED: Furosemide 40 MG TAB PO SCH (14:00)
[2017-12-12] MEDS: Tamsulosin HCl 0.4 MG CAP PO SCH (21:08)
[2017-12-13] MEDS: MEROPENEM 1 GM/50 ML 1 GM in Premix Bag 1 BAG IVPB SCH ×2 (06:32→13:47)
[2017-12-13] MEDS: Furosemide 100 MG/10 ML VIAL SLOW IVP SCH ×2 (06:33→14:49)
[2017-12-13 06:50] LABS: ALT (SGPT) 20 U/L (8-55); AST (SGOT) 20 U/L (5-34); Alkaline Phosphatase 85 U/L (40-150); Anion Gap 14 mmol/L (10-20); BUN (Urea Nitrogen) 44 mg/dL (8.4-25.7); Bilirubin, Total 1.6 mg/dL (0.2-1.2); Calc. Creatinine Clearance 64 mL/min (70-130); Carbon Dioxide 30 mmol/L (23-31); Chloride 105 mmol/L (98-107); Estimated GFR-MDRD 51; Globulin 3.4 g/dL (2.4-3.5); Glucose 143 mg/dL (83-110); Potassium 4.9 mmol/L (3.5-5.1); Protein, Total 6.4 g/dL (5.8-8.1); Sodium 144 mmol/L (136-145)
[2017-12-13 07:27] LABS: #Eosinphils 0.1 thou/uL (0.0-0.7); #Lymphocytes 0.4 thou/uL (1.20-3.40); #Monocytes 0.7 thou/uL (0.11-0.59); #Neutrophils 4.7 thou/uL (1.40-6.50); %Basophils 0.2 % (0.0-1.0); %Eosinophils 1.1 % (0.0-10.0); %Lymphocytes 7.1 % (21.0-51.0); %Monocytes 11.5 % (0.0-10.0); %Neutrophils 80.2 % (42.0-75.0); Mean Corpuscular HGB CONC 31.2 g/dL (32.0-36.0); Mean Corpuscular Hemoglobin 33.2 pg (27.0-31.0); Mean Platelet Volume 8.3 fL (7.4-10.4); Platelet Count 192 thou/uL (130-400); RBC Distribution Width 17.3 % (11.5-14.5); Red Blood Cell (RBC) Count 4.51 mill/uL (4.70-6.10); White Blood Cell (WBC) Count 5.8 thou/uL (4.8-10.8)
[2017-12-13 07:36] VITALS: TEMP 97.2
--- NOTE | 2017-12-13 08:27 | PDOC.FM ---
- Subjective Subjective: 82 yo M w/hx of CHF, COPD, pAfib w/RVR here with acute CHF exacerbation and catheter associated UTI. Today patient is answering questions and reasonably interactive similar to yesterday. He states that he does not feel SOB and denies CP or cough. He does complain of pain associated with his sacral ulcer. There were no acute events over night. Pt denies any new symptoms today. ROS negative other than previously noted - Objective MAR Reviewed: Yes Vital Signs & Weight: Vital Signs (12 hours) Temp Pulse Resp BP Pulse Ox 12/13/17 07:35 97.2 F L 81 20 107/55 L 100 12/13/17 04:00 97.9 F 78 16 107/63 100 12/12/17 21:00 97.6 F 80 16 103/56 L 92 L Weight Admit Weight 99.6 kg Weight 102.965 kg I&O: 12/12/17 12/13/17 12/14/17 06:59 06:59 06:59 Intake Total 430 1464 Output Total 450 925 Balance -20 539 Result Diagrams: 12/13/17 06:16 12/13/17 06:16 <Dennis Higgins - Last Filed: 12/13/17 08:23> - Objective Vital Signs & Weight: Vital Signs (12 hours) Temp Pulse Resp BP Pulse Ox 12/13/17 14:06 80 62/36 L 90 L 12/13/17 13:06 78 74/40 L 93 L 12/13/17 12:00 79 20 90/49 L 92 L 12/13/17 11:48 90 L 12/13/17 11:02 79 89/50 L 87 L 12/13/17 10:26 82 20 94/48 L 82 L 12/13/17 09:42 70 L 12/13/17 09:10 85 L 12/13/17 09:04 78 75/53 L 84 L 12/13/17 08:00 97.2 F L 78 20 100 12/13/17 07:35 97.2 F L 81 20 107/55 L 100 12/13/17 04:00 97.9 F 78 16 107/63 100 Weight Admit Weight 99.6 kg Weight 102.965 kg I&O: 03/29/18 03/30/18 03/31/18 06:59 06:59 06:59 Intake Total 430 1464 Output Total 450 925 Balance -20 539 Result Diagrams: 12/13/17 06:16 12/13/17 06:16 <Samantha Garcia - Last Filed: 12/13/17 15:45> Phys Exam - Physical Examination Constitutional: NAD HEENT: moist MMs, sclera anicteric Neck: no JVD, supple, full ROM Little to no air movement on LLL. Blount improved, but still poor Right has decreased air movement throughout, rales at base Cardiovascular: RRR, no significant murmur 2+ pitting edema to iliac crest, unchanged from yesterday Gastrointestinal: soft, non-tender, no distention Musculoskeletal: pulses present Neurological: non-focal, normal sensation, moves all 4 limbs Lymphatic: no nodes Psychiatric: normal affect Deviation from normal: A&O x2, pt unaware of year Skin: no rash <Dennis Higgins - Last Filed: 12/13/17 08:23> Dx/Plan (1) CHF exacerbation Code(s): I50.9 - HEART FAILURE, UNSPECIFIED Status: Acute QualifierTitle: Heart failure type: unspecified Qualified Code(s): I50.9 - Heart failure, unspecified (2) UTI (urinary tract infection) Status: Acute QualifierTitle: Urinary tract infection type: acute cystitis Hematuria presence: without hematuria Qualified Code(s): N30.00 - Acute cystitis without hematuria (3) Pericardial effusion Code(s): I31.3 - PERICARDIAL EFFUSION (NONINFLAMMATORY) Status: Acute (4) Elevated troponin Code(s): R74.8 - ABNORMAL LEVELS OF OTHER SERUM ENZYMES Status: Acute (5) Elevated brain natriuretic peptide (BNP) level Code(s): R79.89 - OTHER SPECIFIED ABNORMAL FINDINGS OF BLOOD CHEMISTRY Status : Acute (6) Elevated lactic acid level Code(s): R79.89 - OTHER SPECIFIED ABNORMAL FINDINGS OF BLOOD CHEMISTRY Status : Acute (7) Hyperbilirubinemia Code(s): E80.6 - OTHER DISORDERS OF BILIRUBIN METABOLISM Status: Acute (8) HARMONY (obstructive sleep apnea) Code(s): G47.33 - OBSTRUCTIVE SLEEP APNEA (ADULT) (PEDIATRIC) Status: Acute (9) CAD (coronary artery disease) Code(s): I25.10 - ATHSCL HEART DISEASE OF [place] CORONARY ARTERY W/O ANG PCTRS Status: Chronic QualifierTitle: Coronary Disease-Associated Artery/Lesion type: [place] artery [place] vs. transplanted heart: [place]arrow heart Associated angina: without angina Qualified Code(s): I25.10 - Atherosclerotic heart disease of [place] coronary artery without angina pectoris (10) Paroxysmal atrial fibrillation Code(s): I48.0 - PAROXYSMAL ATRIAL FIBRILLATION Status: Chronic (11) Altered mental status Code(s): R41.82 - ALTERED MENTAL STATUS, UNSPECIFIED Status: Acute (12) Sacral decubitus ulcer Status: Acute QualifierTitle: Pressure ulcer stage: unspecified pressure ulcer stage Qualified Code(s): L89.159 - Pressure ulcer of sacral region, unspecified stage - Plan Plan: Acute respiratory failure with hypoxia 2/2 CHF exacerbation - Today is mid 90s on 3 L - Left lung full of fluid, repeat CXR today shows little change - Pulm has been consulted. Recommended repeat echo - Diurese with lasix, output was net positive yesterday. Very little improvement from yesterday. Will add metolazone today - Strict I/O, daily weight Pericardial effusion - Identified on FAST exam in ED - Cards consulted, no changes to plan at this time. - Repeat echo as above - BP and HR normal, low concern for tamponade - Pt had window in Oct of this year. Elevated trop - Given clean cath 2 months ago, this is likely demand ischemia - Cards consulted, no changes to plan at this time. UTI, bacterial and yeast - Urine cx on 11/29 shows enterobacter resistant to 3rd gen cephalosporins and sensitive to bactrim - Stopped Vanc yesterday. Continue Merrem until cx result - Yeast ID'd in culture, will hold off on oral meds at this point - Blood and urine cx pending - davi royal when possible - CBC/CMP in am AMS - Resolved Elevated BMP - 2/2 CHF. Tx as above Hyperbilirubinemia - likely 2/2 congestion. Improved to 1.6 this morning. repeat CMP in am COPD - prn duoneb afib - Pt currently in NSR. monitor on tele - on [employer] HARMONY - order CPAP HS Sacral decub - consult would care - dress and turn pt per routine <Dennis Higgins - Last Filed: 12/13/17 08:23> Attending Addendum - Attending Addendum Date/Time: 12/13/17 1536 I personally evaluated the patient and discussed the management with Dr. Higgins and Dr. Wilkerson I agree with the History, Examination, Assessment and Plan documented above with any addition or exceptions noted below. 82 yo male with multiple medical conditions admitted for acute respiratory failure related to hypoxia. HD#2 Patient decompensated this morning after evaluation of resident. Called by upper level for patient's unresponsiveness. Son at bedside. VS, labs, and imaging reviewed. Patient with hypotension to low normal BP. MAP ranging from 61 to 70. Hypoxic with 4L NC at 90%. Increased work of breathing. Lung sounds improved from yesterday. Patient placed on venti mask. O2 continued to decrease. Placed on CPAP. No improvement. Discussed prognosis with son. Son again noted patient's desires not to be on machines to live. Discussed different interventions to help with comfort and possibly improve status. Son reported he would not want needles in his chest at this time. States from conversation with his father yesterday he is ok with comfort measures at this time. Patient's arrived at bedside. Discussed turning off defibrillator. Agreed to comfort measures as well. Decompenstated HF complicated by pericardial effusion and severe right-sided pleural effusion Demand ischemia Catheter associated UTI ABrayMD <Samantha Garcia - Last Filed: 12/13/17 15:45>
[2017-12-13] MEDS ORDERED: Metolazone 2.5 MG TAB PO SCH (08:30)
[2017-12-13] MEDS ORDERED: Apixaban 2.5 MG TAB PO SCH (09:00)
[2017-12-13] MEDS: Mometasone/Formoterol 120 PUFF INHALER INH SCH (09:10)
--- NOTE | 2017-12-13 09:22 | RAD ---
PORTABLE CHEST 1 VIEW: Date: 12/13/17 Time: 0451 hours HISTORY: Respiratory distress. FINDINGS/IMPRESSION: Allowing for differences in technique, no significant interval change is seen since the exam of 12/11. POS: NETTIE
[2017-12-13 10:02] VITALS: BMI 30.7
[2017-12-13] MEDS: predniSONE 20 MG TAB PO SCH (11:12)
[2017-12-13] MEDS: Docusate 100 MG CAP PO SCH (11:13)
[2017-12-13] MEDS: Dronedarone HCl 400 MG TAB PO SCH (11:13)
[2017-12-13] MEDS: Brimonidine Tartrate 0.2% Ophth Soln 5 ml Bottle R EYE SCH (11:13)
[2017-12-13] MEDS: Cyanocobalamin (Vitamin B-12) 1,000 MCG TAB PO SCH (11:13)
[2017-12-13] MEDS: Dorzolamide HCl 2% Ophth Soln 10 ml Bottle R EYE SCH (11:13)
[2017-12-13] MEDS: Gabapentin 100 MG CAP PO SCH ×2 (11:14→16:16)
[2017-12-13] MEDS: Loteprednol Etabonate 0.5% Ophth Suspension 5 ml Bottle L EYE SCH (11:14)
[2017-12-13] MEDS: Penicillin V Potassium 250 MG TAB PO SCH (11:14)
[2017-12-13] MEDS: Latanoprost 0.005% Ophth Soln 2.5 ml Bottle R EYE SCH (11:14)
[2017-12-13] MEDS: Potassium Chloride 10 MEQ TAB PO SCH (11:14)
[2017-12-13] MEDS: Ezetimibe 10 MG TAB PO SCH (11:14)
[2017-12-13] MEDS: Fluticasone Propionate Nasal Spray 16 gm Bottle NASAL SCH (11:14)
[2017-12-13] MEDS: Rosuvastatin 20 MG TAB PO SCH (11:15)
--- NOTE | 2017-12-13 11:58 | CON ---
DATE OF CONSULTATION: 12/12/[address] Fuller' nurse practitioner, who is a liaison inspection laboratory assistant. PRIMARY CARE PHYSICIAN: Dionicio López MD PRIMARY TOOL DIE MAKER: Ananda Pham MD REFERRING PHYSICIAN: Dr. Toney. REASON FOR CARDIOLOGY CONSULTATION: Elevated troponin level and also history of congestive heart albino lure. HISTORY OF PRESENT ILLNESS: Mr. Jones is an [id number] male with a significant history of chronic systolic dysfunction, ischemic cardiomyopathy due to the atrial fibrillation and status po st AICD placement in 10/2017, COPD, CKD, and coronary artery disease with multiple stent placements. At this moment, the patient is alert; however, the patient is confused. He cannot answer any questi on at this moment. The patient's information was received from the patient's emergency record and [facility] patient's primary care doctor's records. The patient was recently discharged from rehab to home fr hospitalization in 10/2017 due to recurrent pericardial effusion and pericardial window in 10/2017 . During this hospitalization, the patient was found to have atrial fibrillation with rapid ventricu lar response and EF of 20%-25%. The patient underwent AICD placement by EP doctor. On 12/11/2017, i n the morning, the patient was doing well and he went to take a nap around 9:30. Around 1300 hours, when the home health nurse came to assess the patient, the patient was found to be unresponsive, also was hypotensive, so the EMS was called. Also, during this hospitalization, the patient's troponin w as slightly elevated. Unfortunately, at this moment, the patient is alert; however, the patient is u nable to answer any question at this moment. The patient underwent cardiac catheterization on 10/17/2017, which shows stent placement in the mid c ircumflex, OM2, and proximal RCA were all patent, 20% stenosis in the distal RCA, 50% stenosis in the first diagonal, and 30% of stenosis in the proximal LAD with EF 20%. The latest echocardiogram that was done was on 10/15/2017, which shows EF of 20%-25%, LVH, large pleural effusion, severely dilated left atrium, right atrium enlargement, moderate mitral valve regurgitation, mild aortic valve regurg itation, and moderate tricuspid regurgitation. The patient had BLAINE study in 04/2017, which was tj l. PAST MEDICAL HISTORY: 1. Atrial fibrillation with rapid ventricular response, the patient apparently suppressed with Multa q. The patient is on Eliquis 2.5 mg twice a day. 2. CAD with multiple stent placement in RCA, mid circumflex, and OM2. 3. Chronic kidney disease, stage 3. 4. Hypertension. 5. Hyperlipidemia. 6. BPH. 7. COPD with home O2. 8. Ischemic cardiomyopathy with AICD placement in 10/2017. 9. Recurrent pericardial effusion with status post pericardial window in 10/2017. 10. Left pleural effusion. 11. Chronic systolic heart failure. 12. Sleep apnea. 13. History of bilateral lower extremity lymphedema. PAST SURGICAL HISTORY: 1. Left great saphenous vein ablation. 2. Appendectomy. 3. Cornea repair. 4. Left shoulder replacement. FAMILY HISTORY: There is significant family history of sudden cardiac and emphysema. SOCIAL HISTORY: The patient was recently discharged from rehab to the home. He lived with . He is an ex-smoker, quit about 20 years ago. He drinks wine with meal. ALLERGIES: The patient has no known drug allergies. CURRENT HOME MEDICATIONS: 1. Flomax 0.4 mg once a day. 2. Crestor 20 mg once a day. 3. Eliquis 2.5 mg twice a day. 4. Metoprolol 12.5 mg twice a day. 5. Zetia 5 mg once a day. 6. Lotemax 1 drop in left eye every morning. 7. Dorzolamide 1 drop to the right eye daily. 8. Brimonidine 1 drop in right eye daily. 9. Multaq 400 mg twice a day. 10. Lasix 80 mg twice a day. 11. Flonase 1 spray in each nare daily. 12. Colace 100 mg twice a day. 13. Vitamin B12, 1500 mcg once a day. 14. Potassium 10 mEq twice a day. 15. Lumigan 1 drop to the right eye daily. 16. Gabapentin 100 mg 3 times a day. 17. Dulera inhaler 2 puffs daily. 18. Penicillin V 250 mg b.i.d. 19. Prednisone 10 mg once a day. 20. MiraLax 17 grams once a day as needed. 21. Multivitamin 1 tablet once a day. 22. Digoxin 0.125 mg once a day. 23. Tramadol 50 mg every 6 hours as needed. REVIEW OF SYSTEMS: Unable to obtain any information from the patient due to uncontributory, but acco rding to the patient's medical record, the patient's mentioned that the patient was lethargic in the rehab and he was sleeping almost all day at home. PHYSICAL EXAMINATION: VITAL SIGNS: Blood pressure 123/64, pulse is 76 with AFib, O2 saturation 100% with 3 liters nasal ca nnula, temperature 97.9. GENERAL: Well developed and well nourished without any acute distress. HEAD: Normocephalic, atraumatic. EYES: Extraocular muscle movement intact. ENT: Oral and nasal mucosa were moist without lesion. NECK: Supple and normal range of motion. LUNGS: Coarse and diminished at the bases. No wheezing, rales, or rhonchi noted. CARDIOVASCULAR: Irregularly irregular. No significant murmur, hives, thrill, bruits noted. EXTREMITIES: 2+ pitting edema in bilateral lower extremities. ABDOMEN: Soft and nontender. No mass palpated. Nondistended. Bowel sounds are present, but very s low. MUSCULOSKELETAL: Very weak to move all extremities. SKIN: in the bilateral lower extremities. There is stage II decubitus to left buttock and he has the dressing on the knees. NEUROLOGIC: The patient is alert. Opening his eyes, however, he cannot answer any question or follo w commands. EK-lead EKG at the ER shows V-pacing and underlying heart rhythm is AFib with heart rate 93. LABORATORY DATA: WBC 6, hemoglobin 14.6, hematocrit 46.9, platelet 198. INR is 1.6. Sodium 144, po tassium 4.9, BUN 30, creatinine 0.96, glucose 143, lactic acid 4, AST 26. CK-MB 4.6. Troponin 0.441 , 0.424, 0.494, 0.616, and 0.610. UA shows positive for urine protein, large amount of blood, large amount of nitrite, bilirubin, large amount of wbc's, red blood cells, squamous epithelial cells, bact eremia, hyaline cast, urine yeast. The patient's blood culture is showing negative, but urine cultur e is showing yeast, retic. The patient's chest x-ray shows worsening of pleural parenchymal opacity, left is greater than the ri ght side; and superimposed infection or aspiration cannot be excluded. Chest x-ray is going to be do ne tomorrow morning. An echocardiogram was ordered during this admission and results are pending at this time. ASSESSMENT AND PLAN: 1. Elevated troponin level. The patient's troponin level was mildly elevated; however, there are no other indication of myocardial infarction such as EKG did not show any ST segment change and also th e patient's cardiac catheterization in 10/2017 shows [id number] stenosis in LAD and the patient had stent placed and the site is patent. At this moment, I do not believe the patient needs another cardiac catheterization at this moment. We would like to continue to monitor the patient on the tel emetry. 2. Urinary tract infection. The patient's UA and urine culture shows the patient has yeast infectio n and other infection, and the patient is on antibiotic, which is managed by the patient's primary ca re doctor. 3. Atrial fibrillation. The patient's rate is stable. Heart rate is stable at this moment with met oprolol 12.5. He is not on any oral anticoagulants except aspirin 81 mg, but due to large amount of blood shown in UA, we would like to resume the patient's oral anticoagulant like possible Eliquis 2.5 mg twice a day when the patient's condition is stable. 4. Ischemic cardiomyopathy with automatic implantable cardioverter defibrillator placement. I would like to order AICD interrogation to see whether the patient has any heart arrhythmia. 5. Chronic systolic heart failure. Echocardiogram in 09/2017 shows ejection fraction of 20%-25%. T he patient had another echocardiogram ordered during this admission. At this moment, the patient's b reathing is stable with Lasix 80 mg IV push twice a day. 6. Worsening pleural effusion, left side is greater than right side. Dr. Reinoso already assessed t his patient today. The patient is going to have another chest x-ray tomorrow, which is managed by lmonologist. 7. Chronic obstructive pulmonary disease. The patient's breathing is stable at this moment, which i s managed by primary care doctor and secure software assessor. 8. Chronic kidney disease, stage 3. The patient's creatinine level is within normal range at this m oment. We would like to continue to monitor. 9. Sleep apnea. She has CPAP machine at the bedside at night, which is ordered by secure software assessor. 10. Coronary artery disease with multiple stent placements. 12-lead EKG did not show any ST-segment change or T-wave inversion. We would like to continue to monitor the patient on the telemetry. 11. Hypertension. The patient's blood pressures have been stable with current medication. We would like to adjust the medicine as appropriate. 12. Hyperlipidemia. The patient is on Crestor and Zetia. We would like to continue those medicatio ns. 13. Benign prostatic hypertrophy. The patient had a Lai catheter placed at this moment. Thank you very much for allowing the Cardiology service to participate in the care of the patient. Stephen zuniga will follow along with the patient care team and make further recommendations as appropriate.
--- NOTE | 2017-12-13 12:07 | CON ---
DATE OF ADMISSION: 12/11/2017 DATE OF CONSULTATION: 12/12/2017 INDICATION FOR CONSULTATION: This is a very unfortunate 82-year-old gentleman who has a long history of cardiac problems. We were asked to see him due to CHF exacerbation. He apparently has multiple medical problems in the past. Actually, he was in the hospital earlier this year back in October d then was discharged to rehab center and eventually went home and taken care of by home health and h is . His said that yesterday she went to the store and when she came back, the home health person said that he was somewhat unresponsive and was not breathing well. He has had significant pro blems with edema and he was brought back to the emergency room due to decreased mental status changes and overwhelming edema. Apparently, he has been doing on and off some good days and some bad days a t home according to his and has been more with it and other days he sleeps all day. He did not do very well during the rehab according to the , at least he did not do well as far as roger shah and so he decided he wanted to go home. He has had multiple problems in the past. He has had hist ory of AICD placement. His last echocardiogram showed an ejection fraction of about 40-45%. While i n the hospital, he also was found to have a large pericardial effusion underwent which I believe he h as had in the past which has been recurrent. This last hospital admission in October, he underwent I believe a pericardiocentesis and a window was performed by Dr. Duron. He also was noted at that ti me to have what appeared to be left ventricular hypertrophy and evidence of probable diastolic dysfun ction. He denied any chest discomfort. At this time, the patient still seems to be somewhat confuse d. He is very fatigue and is actually sleeping most of the day, but does have essentially anasarca. He has been given IV diuretics, but has not been urinating very well. He also has what appears to b e a urinary tract infection. He also appears to be somewhat septic. He has decubitus ulcers, somewh at difficult situation with this gentleman to determine all the problems. His chest x-ray also shows what appears to be enlarged heart, which may again be some pericardial effusion recurrence, but he d id have a pericardial window apparently. He also has a significant amount of fluid, especially in th e left chest area. His cardiac enzymes also were slightly elevated. He does have a history of coron billy artery disease in the past. For his other pertinent past medical history, please refer the notes dictated by the nurse practitioner. PHYSICAL EXAMINATION: GENERAL: Reveals a very ill-appearing gentleman with anasarca up to the waist area. He is somewhat unresponsive. It is difficult to get a history from this gentleman. VITAL SIGNS: His blood pressure is 121/64, heart rate is 75. He has what appears to be pacing. He has underlying atrial fibrillation. He is afebrile, respiratory rate is 18. His O2 saturations are 98-100% on nasal cannula of 3 liters. HEENT: Reveals head to be normocephalic, atraumatic. LUNGS: His chest has decreased breath sounds throughout, more so on the left side than the right carlton e. CARDIOVASCULAR: Heart rate is somewhat irregular, but most of them appear to be regular, but I belie ve he is pacing. He has a very soft systolic murmur at the apex, but the heart sounds are somewhat d istant. He has a recently placed AICD underneath the right infraclavicular area. EXTREMITIES: 2-3+ edema all the way up to the waist area. NEUROLOGIC: He is obviously somewhat confused and fatigued and very lethargic. LABORATORY DATA: His WBC is 6.0. Hemoglobin 14.6, hematocrit 46.9, platelet count 198,000. His car diac enzymes are indeterminate, but are slightly elevated originally on admission. His troponin I wa s 0.42. This is increased up to 0.61 and the next set of enzymes also remained at 0.61, MB is 4.2. His BNP is 852. Urinalysis shows a urinary tract infection with 4+ bacteria. His INR was 1.6. MEDICATIONS: Include aspirin, Alphagan ophthalmic drops, vitamin B12, Colace,, ophthalmic drops, Mul taq 400 b.i.d., Zetia 5 mg a day, Lidex cream, Flonase nasal spray, Lasix 80 mg b.i.d., Neurontin 100 mg t.i.d. He is on Xalatan ophthalmic drops, Lotemax ophthalmic drops. He is on meropenem, metopro lol 12.5 mg b.i.d., mometasone/formoterol, Dulera 2 puffs daily. He is on Nystatin powder due to yea st infection in the groin area. He is also on penicillin V. He is on potassium 10 mg a day, prednis one 10 mg q.a.m., Crestor 20 mg a day, Flomax 0.4 mg at bedtime, and he had been on vancomycin. This has been discontinued. IMPRESSION: 1. Most likely congestive heart failure exacerbation. He may have had recurrence of the pericardial effusion. Echocardiogram is still pending. This has been ordered, but has not yet been performed. He may need to undergo a repeat pericardial window. He may be just having exacerbation of congestiv e heart failure, most likely from diastolic in nature. He does have what appears to be left ventricu lar hypertrophy on the last echocardiogram that I have reviewed. He also has a dilated atrium with a n actually small ventricle compatible with what appears to be some diastolic dysfunction and this may be also worsening of his congestive heart failure symptoms. We will await the echocardiogram for fu rther evaluation. He may need if his ejection fraction has decreased. He may need to have dobutamin e infusion in order to increase the cardiac output for better diuresis. We would expect he would hav e better diuresis due to the edema. His renal function is not severely compromised at least does not appear to be so at this time, with a creatinine of 0.96 and one would suspect that he would have sig nificant diuresis with the amount of fluid that he has accumulated. 2. History of coronary artery disease and slightly increase in his troponin I at this time. We will need to follow very carefully. At this time, I did not believe he is a very good candidate to go to the cardiac lab courier to undergo cardiac catheterization or any other intervention from a cardiac sta ndpoint. Again, we will need to await the echocardiogram results. 3. Urinary tract infection. He will continue on the antibiotics. 4. Underlying atrial fibrillation. This appears to be chronic in nature. He has been on Eliquis in the past. I think this is being held at this time. 5. Chronic kidney disease which he at this time appear to be relatively stable. 6. Hypertension, which is also stable at this time. 7. Some degree of chronic obstructive pulmonary disease. 8. History of pericardial effusion. 9. What appears to be a pleural effusion, mainly on the left side on the chest x-ray. 10. History of cardiomyopathy with what appears to be at this time a possible repeat or a recurrence of his pericardial effusion despite having a pericardial window. This is the case, he will need to be revisited by the CT surgeons again to alleviate the problem with the pericardial effusion. If thi s is worsening of his congestive heart failure due to diastolic dysfunction, then the prognosis is ob viously very poor. Further care of the patient will be determined by Dr. Pham when he sees the p atient tomorrow. At this time, an echocardiogram may play a maldonado role.
[2017-12-13 14:09] VITALS: BP 62/36
[2017-12-13] MEDS ORDERED: Digoxin 0.125 MG TAB PO SCH (21:00)
--- NOTE | 2017-12-14 07:33 | DS-2 ---
ATTENDING PHYSICIAN: Samantha Garcia M.D. RESIDENT: Dennis Higgins DO DATE OF ADMISSION: 12/11/2017 DATE OF : 12/13/2017 TIME OF : 1500 CAUSE OF : 1. Acute exacerbation of congestive heart failure. 2. Severe pericardial and pleural effusions. SECONDARY DIAGNOSES: 1. Urinary tract infection. 2. Chronic obstructive pulmonary disease. 3. Paroxysmal atrial fibrillation with rapid ventricular response. 4. Sacral decubitus ulcer. 5. Obstructive sleep apnea. 6. Former tobacco abuse. HOSPITAL COURSE: This was an 82-year-old male presented to the emergency room via EMS after being found unresponsive at home by home health. He had recently [facility] following a previous admission at the beginning of October, during which time he had an AICD placed and a pericardial window placed. Since returning home, patient had had significant episodes of lethargy for few days leading up to the admission. On the day of admission, patient had normal course of the morning, went to take a nap at approximately 9:30 and then was found to be unresponsive at approximately 1:00. Patient was admitted for acute congestive heart failure exacerbation and attempts were made to diurese the patient. Additionally, patient required oxygen via nasal cannula in order to maintain oxygenation. A chest x-ray at the time of admission was read as near complete opacification of the left hemithorax and additional findings suggestive of pulmonary edema. Other significant lab values at the time of admission included an INR of 1.6 and ABG with a pH of 7.31, pCO2 of 61.8, and pO2 of 86.6. The UA at the time of admission was found to have white cells too numerous to count, red cells too numerous to count, large blood, positive nitrites, small bilirubin, urobilinogen 2.0, leukocyte esterase moderate, squamous epithelial 7-10, bacteria 4+, and yeast 3+. Chemistry at the time of admission found lactic acid of 4.0, total bilirubin of 1.9. CRP of 1.05, BNP of 852.7, and troponin of 0.441. Over the course of the next 24 hours, an attempt was made to diurese the patient from an overload status additionally, troponins were trended. Given that the patient had a clean cardiac catheterization approximately 2 months prior to admission. There was low concern for acute coronary syndrome and the likely cause of the elevated troponins was demand ischemia. Cardiology was consulted and agreed. Maximum troponin that was monitored was 0.577. Over the first 24 hours, the patient had a modest total net output of 20 mL. The second day of admission, the patient had a net fluid intake of 539 mL. In addition to being treated for his congestive heart failure, the patient was treated for urinary tract infection. Initially vancomycin and meropenem were used then after determining the patient was not bacteremic, the antibiotics were back down to just meropenem. During this day, a discussion was had with patient's who made determination at that time with the patient, would not want heroic measures and request that the patient be made DNR. Conversation covered all of the patient's options and definitions of the terms associated with code status. The patient's clearly understood and explained that these conversations that she had had with her prior to admission. On the third day of admission at around 05:30, patient was alert and oriented x2 and reasonably interactive and had remained in a similar respiratory status in the previous day. By 09:15, the patient had made a significant decline in respiratory status and oxygen saturation was in the mid to low 90s and blood pressures were around 70 systolic. The patient was put on increased oxygen, the head off bed was elevated, and now the patient recovered somewhat to have oxygen saturation in the mid 90s and blood pressures with a MAP in the mid 70s. Patient's code status was again revisited with patient's son who was at the bedside and confirmed that there should be no heroic measures and the patient would be DO NOT RESUSCITATE status. We discussed with patient, the options of CPAP or BiPAP to potentially help with his oxygenation, these were declined and the patient was just put on mask. Additionally, it was discussed with the family to include patient's , the option to turn off the patient's ICD. After thorough discussion of what this meant with what the potential outcomes would be, that made a decision that would be appropriate to do that. The device unemployment inspector was called and to turn off that defibrillation function. Over the course of the day, the patient gradually declined and at 1300, the patient quit breathing entirely and MTDD
[2017-12-14] MEDS ORDERED: Furosemide 100 MG/10 ML VIAL SLOW IVP SCH (09:00)
--- NOTE | 2017-12-25 22:44 | EKG ---
Test Reason : Blood Pressure : / mmHG Vent. Rate : 075 BPM Atrial Rate : 131 BPM P-R Int : 000 ms QRS Dur : 082 ms QT Int : 302 ms P-R-T Axes : 000 -10 171 degrees QTc Int : 337 ms Atrial fibrillation with occasional ventricular-paced complexes Low voltage QRS Nonspecific ST and T wave abnormality Abnormal ECG When compared with ECG of 09-OCT-2017 14:48, Electronic ventricular pacemaker has replaced Atrial fibrillation Vent. rate has decreased BY 41 BPM Confirmed by Navi DECKER ([id number]) on 12/25/2017 10:44:21 PM Referred By: JV Confirmed By:Navi DECKER
== END 2017-12-13 16:46 | disposition expired | DRG 698 ==
LOC: ERS 14:03 → ERHOLD 16:33 → IMCU/EMU 21:44
PROVIDERS: ADMIT Student in an Organized Health Care Education/Training Program; ATTEND Student in an Organized Health Care Education/Training Program
DX: A41.89 Other specified sepsis; J81.1 Chronic pulmonary edema; J96.01 Acute respiratory failure with hypoxia; I13.0 Hypertensive heart and chronic kidney disease with heart failure and stage 1 through stage 4 chronic kidney disease, or unspecified chronic kidney disease; Z79.82 Long term (current) use of aspirin; L89.159 Pressure ulcer of sacral region, unspecified stage; N18.3 Chronic kidney disease, stage 3 (moderate); Z99.81 Dependence on supplemental oxygen; I25.10 Atherosclerotic heart disease of native coronary artery without angina pectoris; E78.5 Hyperlipidemia, unspecified; E80.6 Other disorders of bilirubin metabolism; Z66 Do not resuscitate; N40.0 Benign prostatic hyperplasia without lower urinary tract symptoms; Z51.5 Encounter for palliative care; I25.5 Ischemic cardiomyopathy; I25.2 Old myocardial infarction; R65.20 Severe sepsis without septic shock; Z95.5 Presence of coronary angioplasty implant and graft; G47.33 Obstructive sleep apnea (adult) (pediatric); J44.9 Chronic obstructive pulmonary disease, unspecified; Z95.0 Presence of cardiac pacemaker; I50.43 Acute on chronic combined systolic (congestive) and diastolic (congestive) heart failure; I47.1 Supraventricular tachycardia; I48.0 Paroxysmal atrial fibrillation; B37.2 Candidiasis of skin and nail; N30.00 Acute cystitis without hematuria; I31.3 Pericardial effusion (noninflammatory); Z87.891 Personal history of nicotine dependence; T83.511A Infection and inflammatory reaction due to indwelling urethral catheter, initial encounter; I24.8 Other forms of acute ischemic heart disease; I08.3 Combined rheumatic disorders of mitral, aortic and tricuspid valves
CPT/HCPCS: 36415; 51702; 71045; 80053; 81003; 81015; 82553; 82805; 83605; 83880; 84145; 84484; 85025; 85610; 85652; 85730; 86140; 87040; 87086; 93005; 93010; 94664; 96365; 96375; G8978-GP-CM; G8979-GP-CL; J1940; J2185; J2543; J3370; J7050